=== PATIENT | male | born 1935 | race Caucasian/White ===

== ENCOUNTER 2021-12-13 13:36 | Outpatient (CLI) | payer MEDICARE, SELFPAY ==
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
== END 2021-12-13 13:37 | disposition home or self-care (01) ==
PROVIDERS: PCP Family Medicine Adolescent Medicine; Visit Provider Urology
DX: M85.852 Other specified disorders of bone density and structure, left thigh (principal); M85.851 Other specified disorders of bone density and structure, right thigh
CPT/HCPCS: 77080

== ENCOUNTER 2022-12-01 07:45 | Outpatient (CLI) | payer MEDICARE, SELFPAY ==
--- NOTE | ~2022-12-01 | NM_ITS ---
EXAMINATION: NM bone scan whole body DATE: 12/01/2022 12:22 INDICATION: Prostate cancer TECHNIQUE: 24.2 mCi Tc-99m HDP was administered intravenously. Delayed whole-body scintigrams were o btained. COMPARISON: Bone scan dated 04/10/[address] abdomen and pelvis dated 12/01/2022 FINDINGS: Typical pattern of scattered foci of mild joint centered likely degenerative uptake at the bilateral shoulders, left sternoclavicular joint, right wrist and bilateral feet. No other foci of atypical bon e uptake to suggest metastatic disease. IMPRESSION: 1. No evident osseous metastatic disease. Reviewed, dictated and finalized at location A.
--- NOTE | ~2022-12-01 | CT_ITS ---
CT of the Abdomen and Pelvis: Indication: Prostate cancer Technique: 2.5 mm axial scans were obtained through the abdomen and pelvis following intravenous adm inistration of 100 cc of Omnipaque 350. Dose reduction technique was used on this scan by utilizing a utomated exposure control and iterative reconstruction technique. The dose-length product (DLP) was 1 073.45 mGy-cm. COMPARISON: 04/09/2010 Findings: Scans through the lung bases demonstrate calcified granulomas. The liver, spleen, pancreas, right adrenal gland, and kidneys are within normal limits. Calcified gal lstone present. There is a 2.2 cm left adrenal nodule, significantly increased in size since prior ex am, indeterminate. There are atherosclerotic calcifications of the aorta. No lymphadenopathy. No bowel obstruction or bowel wall thickening. There is a 3.8 x 3.2 x 3.2 cm lobulated soft tissue ma ss in the pelvis, just left of the distal sigmoid colon/rectum (axial image 150). There is an adjacen t 1.9 cm soft tissue nodule just anterior to this lesion (axial image 144). There is a 3.3 x 3.2 x 3. 2 cm lobulated soft tissue mass just left of the left common iliac vessels (axial image 125). Images through the pelvis were performed. Urinary bladder unremarkable. There are bilateral fat-conta ining inguinal hernias. No ascites. Impression: 3 distinct soft tissue masses in the abdomen/pelvis, as detailed above, consistent with neoplastic di sease. Given history, this presumably represents metastatic prostate carcinoma. Correlation with any more recent exams and/or treatment history is advised. Consider tissue sampling as indicated to confi rm histology. 2.2 cm left adrenal nodule, significantly increased since 2009, indeterminate. Consider MR to assess for adenoma versus other lesion. Bilateral fat-containing inguinal hernias. Reviewed, dictated and finalized at location M. Impression: 3 distinct soft tissue masses in the abdomen/pelvis, as detailed above, consist ent with neoplastic disease. Given history, this presumably represents metastat ic prostate carcinoma. Correlation with any more recent exams and/or treatment history is advised. Consider tissue sampling as indicated to confirm histology. 2.2 cm left adrenal nodule, significantly increased since 2009, indeterminate. Consider MR to assess for adenoma versus other lesion. Bilateral fat-containing inguinal hernias.
[2022-12-01 08:15] LABS: Estimated Glomerular Filt Rate 58
== END 2022-12-01 07:46 | disposition home or self-care (01) ==
PROVIDERS: PCP Family Medicine Adolescent Medicine; Visit Provider Urology
DX: C61 Malignant neoplasm of prostate (principal); K40.20 Bilateral inguinal hernia, without obstruction or gangrene, not specified as recurrent; D35.02 Benign neoplasm of left adrenal gland
CPT/HCPCS: 74177; 78306; A9503; Q9967

== ENCOUNTER 2023-12-14 09:19 | Outpatient (CLI) | payer MEDICARE, SELFPAY ==
--- NOTE | ~2023-12-14 | NM_ITS ---
EXAMINATION: NM bone scan whole body DATE: 12/14/2023 14:22 INDICATION: Malignant neoplasm of prostate. TECHNIQUE: 25 mCi Tc-99m HDP was administered intravenously. Delayed whole-body scintigrams were obt ained. 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 IMPRESSION: 1. No evidence of metastatic disease. Reviewed, dictated and finalized at location A.
--- NOTE | ~2023-12-14 | CT_ITS ---
EXAMINATION: CT abdomen pelvis w con DATE: 12/14/2023 10:27 INDICATION: Malignant neoplasm of the prostate TECHNIQUE: Computed tomography (CT) of the abdomen and pelvis was performed with 100 mL Omnipaque-350 intravenous contrast. Automated exposure control and iterative reconstruction technique were employe d. The dose-length product was 1207.55 mGy-cm. COMPARISON: CT dated 12/01/2022 FINDINGS: Small calcified right lower lobe nodules and calcified right hilar lymph nodes along with multiple sc attered small hepatic and splenic calcifications, all consistent with old granulomatous disease. Hear t size is normal. Atherosclerotic coronary artery calcification. No pericardial or pleural effusion. Several scattered small hepatic cysts measuring up to 10 mm. Calcified gallstone at the neck of the o therwise normal gallbladder with no wall thickening or pericholecystic inflammatory changes to sugges t acute cholecystitis. Pancreas and right adrenal gland are normal. Interval decrease in size of a pr eviously 2.2 cm, currently 1.8 cm enhancing left adrenal nodule. There are multiple small low-attenua tion cysts in both kidneys. Indeterminate 1.5 cm soft tissue density lesion at the upper pole of the right kidney. Moderate scattered sigmoid predominant colonic diverticulosis without adjacent inflamma tory stranding to suggest diverticulitis. Small bowel and appendix are normal. Moderate sized bilater al fat-containing inguinal hernias. No free intraperitoneal gas or fluid. Marked interval decrease in size of the 3 previously noted left retroperitoneal masses. For reference the most cephalad along th e cephalad margin of the left common iliac artery is decreased from 3.3 cm to 1.2 cm maximal diameter on the 2 more caudal presacral mass is decreased from 1.9 cm to 1.0 cm and 3.9 to 1.7 cm. No new mas ses or pathologically enlarged abdominal or pelvic lymphadenopathy. Moderate lumbar and lower thoraci c spondylosis. No suspicious lytic or blastic bone lesions. IMPRESSION: 1. 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 2. Interval decrease in size of a previously 2.2 cm, currently 1.8 cm left adrenal nodule also consis tent with response to treatment of metastatic disease. 3. Cholelithiasis. Reviewed, dictated and finalized at location B. IMPRESSION: 1. Significant interval decrease in size of 3 left sided retroperitoneal masses likely representing response to treatment of lymphatic metastatic prostate can cer. 2. Interval decrease in size of a previously 2.2 cm, currently 1.8 cm left adre nal nodule also consistent with response to treatment of metastatic disease. 3. Cholelithiasis.
[2023-12-14 10:20] LABS: Estimated Glomerular Filt Rate 52
== END 2023-12-14 09:20 | disposition home or self-care (01) ==
PROVIDERS: PCP Family Medicine Adolescent Medicine; Visit Provider Urology
DX: C61 Malignant neoplasm of prostate (principal)
CPT/HCPCS: 74177; 78306; A9503; Q9967

== ENCOUNTER 2024-03-28 13:30 | Outpatient (CLI) | payer MEDICARE, SELFPAY ==
--- NOTE | ~2024-03-28 | DEXA_ITS ---
Bone Density Report Name: JAMILA MILNER Age: 88 Sex: Male Ethnicity: White Date of : 1935 Indication: screening for osteoporosis; height loss; history of glucocorticoids; cancer; Referring Provider: KUMAR TAVERAS Study: Bone densitometry was performed. Exam Date: March 28, 2024 Accession number: [id number] Bone Density: Region BMD T-score Z-score Classification AP Spine(L1, L2, L3) 1.065 0.0 1.2 Normal Femoral Neck (Left) 0.760 -1.3 0.5 Osteopenia Total Hip (Left) 0.955 -0.5 0.7 Normal Femoral Neck (Right) 0.701 -1.7 0.0 Osteopenia Total Hip (Right) 0.896 -0.9 0.4 Normal Total Hip Mean 0.925 -0.7 0.6 Normal World Health Organization criteria for BMD impression classify patients as: Normal (T-score at or above -1.0), Osteopenia (T-score between -1.0 and -2.5), or Osteoporosis (T-score at or below -2.5). 10-year Fracture Risk(1): Major Osteoporotic Fracture 9.2% Hip Fracture 4.1% Reported Risk Factors: [place] (), Neck BMD=0.701, BMI=33.1, glucocorticoids (1) FRAX(R) Version 3.08. Fracture probability calculated for an untreated patient. Fracture probability may be lower if the patient has received treatment. Previous Exams: Region Exam Age BMD T-score BMD Change BMD Change Date g/cm2 vs Baseline vs Previous AP Spine (L1-L3) 03/28/2024 88 1.065 0.0 -0.003 (-0.3%) -0.003 (-0.3%) 12/13/2021 86 1.068 0.0 Total Hip(Left) 03/28/2024 88 0.955 -0.5 0.017 (1.8%)# 0.017 (1.8%)# 12/13/2021 86 0.938 -0.6 Total Hip(Right) 03/28/2024 88 0.896 -0.9 -0.013 (-1.4%) -0.013 (-1.4%) 12/13/2021 86 0.908 -0.8 *Denotes significance at 95% confidence level, LSC for AP Spine = 0.022 g/cm2, LSC for Total Hip = 0.027 g/cm2 # Denotes dissimilar scan types or analysis methods Clinical Information Provided by Patient: Has taken Glucocorticoids Has used the following medications: Calcium Has the following medical conditions: Cancer Patient maximum height was 72.0 Does not regularly consume dairy products Drinks caffeinated beverages Impression: The patient has low bone mass, based on the Right Femoral Neck T-score. The patient has an estimated ten-year risk of hip fracture of 4.1% and an estimated ten-year risk of major fracture of 9.2%, based on the WHO FRAX algorithm. The patient has risk factors, including: history of glucocorticoid therapy. No significant bone loss was observed. Discussion: BONE D
== END 2024-03-28 13:31 | disposition home or self-care (01) ==
LOC: ANHIMG 13:33
PROVIDERS: PCP Family Medicine Adolescent Medicine; Visit Provider Urology
DX: M81.0 Age-related osteoporosis without current pathological fracture (principal); M85.852 Other specified disorders of bone density and structure, left thigh; M85.851 Other specified disorders of bone density and structure, right thigh
CPT/HCPCS: 77080

== ENCOUNTER 2024-08-30 11:45 | Emergency (ER) | payer MEDICARE, SELFPAY ==
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
[2024-08-30 11:56] VITALS: BP 128/69; PULSE 74; RESP 16; TEMP 37.7; O2SAT 97
[2024-08-30] MEDS: SILVER SULFADIAZINE 1% CR 50 GM JAR (*BKC) 1 APPLIC TOPICAL (12:13)
[2024-08-30] MEDS: TETANUS,DIPHTHERIA,AC PERTUSSIS ADULT (0.5 ML) BOOSTRIX IM (12:13)
--- OUTSIDE RECORDS SUMMARY | 2024-08-30 13:24 | XMS_ITS | Encounter Summary ---
Author Organization [facility] Address [address] [place] [address] Care Team Providers Care Chemical Machine Tender Name Role Phone Unavailable Primary Care Provider Unavailabl e Encounter Details Date Type Department Care Team (Late st Contact Info) Description 06/02/2024 Lab Requisition [facility] - DermPath Lab [address] [place] [phone] [address]ad [address] MD [facility] DERMATOLOGY [address] [place] [phone] Squamous cell carcinoma of skin of scalp and neck Social History Tobacco Use Types Packs/Day Years Used Date Smoking Tobacco: Never Assessed Sex and Gender Information Value Date Recorded Sex Assigned at Not on file Gender Identity Not on file Sexual Orientation Not on file documented as of this encounter Plan of Treatment Not on file documented as of this encounter Procedures Procedure Name Priority Date/Time Associated Diagnosis Comments DERMATOPATHOLOGY Routine 06/02/2024 3:33 AM CHIEF CLINICAL OFFICER Squamous cell carcinoma of skin of scalp and neck documented in this encounter Results * DERMATOPATHOLOGY (06/02/2024 3:33 AM CHIEF CLINICAL OFFICER) Case Report Dermatopathology Report Case: [id number] Authorizing Provider: Prasad Lane MD Collected: 06/02/2024 03:33 AM Ordering Location: [facility] - Received: 06/03/2024 12:27 PM DermPath Lab Pathologist: Jw Allred MD Specimen: Skin, right frontal scalp 1:25 PM CHIEF CLINICAL OFFICER DERMATOPATHOLOGY LABORATORY Final Diagnosis Specimen A. SKIN, right frontal scalp: SQUAMOUS CELL CARCINOMA, MODERATELY DIFFERENTIATED AND INFILTRATIVE (C44.42) NOT PRESENT AT MARGIN DERMAL SCAR (L90.5) (see microscopic description and comment) 1:25 PM CHIEF CLINICAL OFFICER DERMATOPATHOLOGY LABORATORY Clinical History SCC - check margins 1:25 PM [facility] DERMATOPATHOLOGY LABORATORY Gross Description Specimen A: Received is one formalin filled container labeled with the patient's name and designated right frontal scalp. The specimen consists of a non-oriented ellipse of skin measuring [id number] mm. The epidermal surface is unremarkable. The margin is inked green. The 12 o'clock and 6 o'clock tips are submitted in cassette 1. The remainder of the ellipse is serially sectioned and submitted in cassette 2-15. Jar 0. 1:25 PM [facility] DERMATOPATHOLOGY LABORATORY Microscopic Description Specimen A. SKIN, right frontal scalp: There are nests of squamous epithelial cells which arise from the epidermis and extend into the dermis. The nests have only focal central keratinization and rare horn patti formation. The tumor extends into the subcutaneous tissue. This lesion is not present at the margin of the specimen. There are fibroblasts and collagen bundles oriented parallel to the skin surface with elongated blood vessels, some of which are oriented perpendicular to the skin surface. COMMENT: The tumor extends into the subcutaneous tissue (Gustavo level V). 1:25 PM [facility] DERMATOPATHOLOGY LABORATORY Disclaimer An external and internal positive and negative controls are appropriate for the histochemical, immunohistochemical and immunofluorescence stain(s) in this case (if any), except where stated explicitly. The performance characteristics of the stain(s) cited in this report were developed and its performance characteristic determined by the Dermatopathology Laboratory at [facility], directed by Dr. Maurice Allred. These tests need not be, and therefore are not, approved by the [place] Food and Drug Administration. The tests are used for clinical purposes. Billing Codes Specimen Charges Stain Charges 07226 1 1:25 PM [facility] DERMATOPATHOLOGY [facility]ORATORY Embedded Images 1:25 PM [facility] DERMATOPATHOLOGY [facility]ORATORY Pathology/Cytolo gy TISSUE SPECIMEN FROM SKIN / Unknown 06/02/2024 3:33 AM CHIEF CLINICAL OFFICER 06/03/2024 12:27 PM CHIEF CLINICAL OFFICER Prasad Lane MD LAB - PATHOLOGY/CYTO LOGY ORDERABLES DERMATOPATHOLOGY LABORATORY [facility] - Department of Dermatology [facility] [address] [place] [address], [address] [phone] documented in this encounter Visit Diagnoses Diagnosis 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
--- OUTSIDE RECORDS SUMMARY | 2024-08-30 13:24 | XMS_ITS | Encounter Summary ---
Author Organization [facility] Address [address] [place] [address] Care Team Providers Care Suction Operator Name Role Phone Unavailable Primary Care Provider Unavailabl e Encounter Details Date Type Department Care Team (Late st Contact Info) Description 05/09/2024 Lab Requisition [facility] - DermPath Lab [address] [facility], [place] [phone] Bianka Luther MD [address] [place] [address] [place] [phone] Social History Tobacco Use Types Packs/Day Years Used Date Smoking Tobacco: Never Assessed Sex and Gender Information Value Date Recorded Sex Assigned at Not on file Gender Identity Not on file Sexual Orientation Not on file documented as of this encounter Plan of Treatment Not on file documented as of this encounter Procedures Procedure Name Priority Date/Time Associated Diagnosis Comments DERMATOPATHOLOGY Routine 05/06/2024 3:33 AM GRADUATE RECRUITER documented in this encounter Results * DERMATOPATHOLOGY (05/06/2024 3:33 AM GRADUATE RECRUITER) Case Report Dermatopathology Report Case: [id number] Authorizing Provider: Bianka Luther MD Collected: 05/06/2024 03:33 AM Ordering Location: [facility] - Received: 05/09/2024 12:11 PM DermPath Lab Pathologist: Jw Allred MD Specimen: Skin, right frontal scalp 4 3:31 PM GRADUATE RECRUITER DERMATOPATHOLOGY LABORATORY Final Diagnosis Specimen A. 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 The specimen consists of a shave biopsy measuring five piece 8x5x1;13x8x1;15x8x1 ;7x4x1;7x5x1 mm. Jar 0. 3:31 PM [facility] DERMATOPATHOLOGY LABORATORY Microscopic Description Specimen A. SKIN, right frontal scalp: Sections show skin with irregularly shaped nests of keratinocytes with evidence of cornification. In some nests, there is loss of cohesion between the neoplastic cells, as well as individual dyskeratotic cells that lack intercellular bridges. 3:31 PM [facility] DERMATOPATHOLOGY LABORATORY Disclaimer An external and internal positive and negative controls are appropriate for the histochemical, immunohistochemical and immunofluorescence stain(s) in this case (if any), except where stated explicitly. The performance characteristics of the stain(s) cited in this report were developed and its performance characteristic determined by the Dermatopathology Laboratory at [facility], directed by Dr. Maurice Allred. These tests need not be, and therefore are not, approved by the [place] Food and Drug Administration. The tests are used for clinical purposes. Billing Codes Specimen Charges Stain Charges 56250 1 3:31 PM [facility] DERMATOPATHOLOGY LABORATORY Embedded Images 3:31 PM [facility] DERMATOPATHOLOGY LABORATORY Pathology/Cytolo gy TISSUE SPECIMEN FROM SKIN / Unknown 05/06/2024 3:33 AM GRADUATE RECRUITER 05/09/2024 12:11 PM GRADUATE RECRUITER Bianka Luther MD LAB - PATHOLOGY/CYTO LOGY ORDERABLES DERMATOPATHOLOGY LABORATORY [facility] - Department of Dermatology [address], [address] [phone] documented in this encounter Visit Diagnoses Not on filedocumented in this encounter
--- OUTSIDE RECORDS SUMMARY | 2024-08-30 13:24 | XMS_ITS | Encounter Summary ---
Author Organization [facility] Address [address] [facility] [address] Care Team Providers Care Zigzag Appliquer Name Role Phone Unavailable Primary Care Provider Unavailabl e Encounter Details Date Type Department Care Team (Late st Contact Info) Description 08/18/2023 Lab Requisition [facility] - DermPath Lab [address] [facility], [place] [phone] [address]asad [address] MD [facility] DERMATOLOGY [address] [place] [phone] Neoplasm of uncertain behavior of skin Social History Tobacco Use Types Packs/Day Years Used Date Smoking Tobacco: Never Assessed Sex and Gender Information Value Date Recorded Sex Assigned at Not on file Gender Identity Not on file Sexual Orientation Not on file documented as of this encounter Plan of Treatment Not on file documented as of this encounter Procedures Procedure Name Priority Date/Time Associated Diagnosis Comments DERMATOPATHOLOGY Routine 08/18/2023 12:0 0 AM [facility] Neoplasm of uncertain behavior of skin documented in this encounter Results * DERMATOPATHOLOGY (08/18/2023 12:00 AM [facility]) Case Report Dermatopathology Report Case: [id number] Authorizing Provider: Prasad Lane MD Collected: 08/18/2023 12:00 AM Ordering Location: [facility] - Received: 08/19/2023 02:02 PM DermPath Lab Pathologist: Preethi Clemons MD Specimens: A) - Skin, left medial wrist B) - Skin, left superior brad of antihelix C) - Skin, left lateral elbow 12:37 PM [facility] DERMATOPATHOLOGY LABORATORY Final Diagnosis Specimen A. SKIN, left medial wrist: HYPERPLASTIC (HYPERTROPHIC) ACTINIC KERATOSIS (L57.0) Specimen B. SKIN, left superior brad of antihelix: BASAL CELL CARCINOMA, NODULAR TYPE (C44.219) Specimen C. 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 The specimen consists of a shave biopsy measuring 92m04c8 mm. Jar 0+. Specimen B: Received is one formalin filled container labeled with the patient's name and designated left superior brad of antihelix. The specimen consists of a shave biopsy measuring 8x8x3 mm. Jar 0. Specimen C: Received is one formalin filled container labeled with the patient's name and designated left lateral elbow. The specimen consists of a shave biopsy measuring 10x9x2 mm. Jar 0. 12:37 PM [facility] DERMATOPATHOLOGY LABORATORY Microscopic Description Specimen A. SKIN, left medial wrist: There is hyperkeratosis alternating with parakeratosis. There is epidermal hyperplasia with disorderly maturation of keratinocytes with nuclear pleomorphism confined to the lower half of the epidermis. Specimen B. SKIN, left superior brad of antihelix: Within the dermis there are aggregates of basaloid cells with a high nuclear to cytoplasmic ratio and peripheral palisading. Specimen C. SKIN, left lateral elbow: The epidermis shows parakeratosis, full thickness disorderly maturation of keratinocytes, mitoses at different levels, and dyskeratotic cells. 12:37 PM [facility] DERMATOPATHOLOGY LABORATORY Disclaimer An external and internal positive and negative controls are appropriate for the histochemical, immunohistochemical and immunofluorescence stain(s) in this case (if any), except where stated explicitly. The performance characteristics of the stain(s) cited in this report were developed and its performance characteristic determined by the Dermatopathology Laboratory at [facility], directed by Dr. Maurice Allred. These tests need not be, and therefore are not, approved by the [place] Food and Drug Administration. The tests are used for clinical purposes. Billing Codes Specimen Charges Stain Charges 03068 59577 80014 1 1 1 4 12:37 PM [facility] DERMATOPATHOLOGY LABORATORY Embedded Images 12:37 PM [facility] DERMATOPATHOLOGY LABORATORY Pathology/Cytology TISSUE SPECIMEN FROM SKIN / Unknown 08/18/2023 08/19/2023 2:02 PM [facility] Miscellaneous samples (specimen) TISSUE SPECIMEN FROM SKIN / Unknown 08/18/2023 08/19/2023 2:05 PM [facility] Miscellaneous samples (specimen) TISSUE SPECIMEN FROM SKIN / Unknown 08/18/2023 08/19/2023 2:[address] MD LAB - PATHOLOGY/CYTO LOGY ORDERABLES DERMATOPATHOLOGY LABORATORY [facility] - Department of Dermatology [facility] [address] [place] [address], [address] [phone] documented in this encounter Visit Diagnoses Diagnosis Neoplasm of uncertain behavior of skin documented in this encounter
--- OUTSIDE RECORDS SUMMARY | 2024-08-30 13:24 | XMS_ITS ---
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 Past Plans No past plan information found. Radiation Treatments * Plan Last Treated On Elapsed Days Fractions Treated Prescribed Fraction Dose Prescribed Total Dose Pelv_SBRT_I nf 03/19/2023 5 of 5 Pelv_SBRT_S up 03/19/2023 5 of 5 Reference Point Last Treated On Elapsed Days Session Dose Total Dose Pelv_SBRT_Inf 03/19/2023 36 Pelv_SBRT_Sup 03/19/2023 40
--- OUTSIDE RECORDS SUMMARY | 2024-08-30 13:24 | XMS_ITS | Clinical Summary ---
Author Organization [facility] Address [address] [place] [address] Phone Care Team Providers Care Cash Management Coordinator Name Role Phone Lenin Armijo MD Primary Care Provider + Josh Yoo MD Unavailable [phone] Allergies No known active allergies Medications lisinopril (PRINIVIL, ZESTRIL) 20 MG Tablet Take 20 mg by mouth daily. 2 tablets Active potassium chloride CR (KLORCON) 10 MEQ Tablet Controlled Release Take 10 Tablets by mouth 2 times daily. 11/04/2022 Active hydroCHLOROthia zide 25 MG Tablet 11/05/2022 Active Alpha-Lipoic Acid 100 MG Capsule Take by mouth in the morning and at bedtime. Active B Complex Vitamins (VITAMIN-B COMPLEX PO) Take by mouth. Active Calcium Carb-Cholecalci ferol (CALCIUM 500 + D PO) Take by mouth. Active abiraterone (ZYTIGA) 250 MG Tablet 12/26/2022 Active predniSONE (DELTASONE) 5 MG Tablet 03/24/2024 Active Active Problems Problem Noted Date Diagnosed Date Prostate cancer 01/15/2023 Encounters Date Type Department Care Team Description 08/04/2024 10:[address] INSPECTOR Office Visit [facility] [address] [place] [address] Sharri Weston, ENGINEERING PSYCHOLOGIST, MANAGER [employer] Prostate cancer (HCC) (Primary Dx) 08/04/2024 Travel 07/28/2024 11:[address] INSPECTOR Lab [facility] [address] [facility] [address] [phone] Prostate cancer (HCC) (Primary Dx) 07/28/2024 Travel from Last 3 Months Social History Tobacco Use Types Packs/Day Years Used Date Smoking Tobacco: Never Smokeless Tobacco: Never Tobacco Cessation:Counseling Given: Not Answered Sexually Active Control Partners Comments Never Sex and Gender Information Value Date Recorded Sex Assigned at Not on file Legal Sex Male 3:41 PM CDT Gender Identity Not on file Sexual Orientation Not on file Last Filed Vital Signs Vital Sign Reading Time Taken Comments Blood Pressure 142/90 08/04/2024 10:[address] INSPECTOR Pulse 72 08/04/2024 10:[address] INSPECTOR Temperature 36.2 C (97.2 F) 08/04/2024 10:[address] INSPECTOR Respiratory Rate 18 08/04/2024 10:[address] INSPECTOR Oxygen Saturation 98% 08/04/2024 10: [address] INSPECTOR Inhaled Oxygen Concentration - - Weight 102.3 kg (225 lb 9.6 oz) 025 10:[address] INSPECTOR Height 177.8 cm (5' 10 ) 08/04/2024 10: [address] INSPECTOR Body Mass Index 32.37 08/04/2024 10:[address] INSPECTOR Plan of Treatment Upcoming Encounters Date Type Department Care Team (Late st Contact Info) Description 01/26/2025 10:00 AM CDT Lab [facility] [address] [facility] [address] [phone] Nurse, [facility] 02/02/2025 10:45 AM CDT Office Visit [facility] [address] [facility] [address] [phone] Josh Yoo MD [address] [place] [phone] Health Maintenance Due Date Last Done Comments Hepatitis C Virus (HCV) Screening 1935 TdaP Immunization 1935 Pneumococcal Immunization (50+ years) (1 of 2 - PCV) 1956 Zoster Immunization (1 of 2) 1956 Respiratory Syncytial Virus (RSV) Immunization (Adult) (1 - 1-dose 75+ series) 2012 SARS-COV-2 Immunization ( season) 2024 08/04/2022, 03/14/2021, 08/28/2020, Additional history exists Influenza Immunization Completed , 03/05/2023, 03/17/2022, Additional history exists Hepatitis B Immunization Aged Out No longer eligible based on patient's age to complete this topic Meningococcal Immunization (ACWY) Aged Out No longer eligible based on patient's age to complete this topic Rotavirus Immunization Aged Out No lo nger eligible based on patient's age to complete this topic Procedures Procedure Name Priority Date/Time Associated Diagnosis Comments COMPLETE BLOOD COUNT (CBC) WITH DIFF Routine 07/28/2024 3:[address] INSPECTOR Prostate cancer (HCC) CMP (COMPREHENSIVE METABOLIC PANEL) Routine 07/28/2024 3:[address] INSPECTOR Prostate cancer (HCC) PSA DIAGNOSTIC,TOTAL Routine 07/28/2024 3:[address] INSPECTOR Prostate cancer (HCC) from Last 3 Months Results * PSA DIAGNOSTIC,TOTAL (07/28/2024 3:[address] INSPECTOR) PSA 0.05 0.00 - 4.00 ng/mL [facility] AT [facility] Comment: Radha Paramagnetic Particle Chemiluminescent Immunoassay Method. Standardized against the WHO standard. Blood 07/28/2024 3:[address] INSPECTOR Narrative [facility] - 07/29/2024 2:[address] INSPECTOR Release to patient->Immediate us Josh Yoo MD CHEMISTRY ORDERABLES Final Result [facility] COUNT[facility] INCLUDE [facility] AT [facility] [place] [address], [place] [phone] * (ABNORMAL) CMP (COMPREHENSIVE METABOLIC PANEL) (07/28/2024 3:[address] INSPECTOR) Glucose 106(H) 70 - 105 mg/dL [facility] Blood Urea Nitrogen 23 7 - 25 mg/dL [facility] Creatinine 1.0 0.7 - 1.3 mg/dL [facility] Sodium 144 136 - 145 mEq/L [facility] Potassium 3.8 3.5 - 5.1 mEq/L [facility] Chloride 102 98 - 107 mEq/L [facility] Bicarbonate 32(H) 21 - 31 mEq/L [facility] Total Bilirubin 0.7 0.3 - 1.0 mg/dL [facility] Alk. Phosphatase 74 34 - 104 U/L [facility] Aspartate Aminotransferase 16 13 - 39 U/L [facility] Alanine Aminotransferase 10 7 - 52 U/L [facility] Total Protein 6.0(L) 6.4 - 8.9 g/dL [facility] Albumin 4.1 3.5 - 5.7 g/dL [facility] Calcium 9.9 8.6 - 10.3 mg/dL [facility] Anion Gap 13.8 7.0 - 15.0 mEq/L [facility] Globulin 1.9(L) 2.0 - 3.5 g/dL [facility] EGFR 73 >60 ml/min/1. 73m2 [facility] Comment: This eGFR is calculated using 2020 CKD-EPI Creatinine equation without race modifier based on the NKF-ASN task force recommendations Blood 07/28/2024 3:[address] INSPECTOR Narrative [facility] - 07/29/2024 9:[address] INSPECTOR Release to patient->Immediate IS THE PATIENT REQUIRED TO BE FASTING FOR 8 HOURS?->No Josh Yoo MD CHEMISTRY ORDERABLES Final Result [facility]CLUDE [facility] AT [facility] [address] [place] [address], * (ABNORMAL) COMPLETE BLOOD COUNT (CBC) WITH DIFF (07/28/2024 3:[address] INSPECTOR) WBC 7.8 4.0 - 10.0 10*3/uL [facility] HGB 12.6(L) 13.7 - 17.5 g/dL [facility]CLUDE 234 [facility] AT [facility] HCT 38.6(L) 40.1 - 51.0 % [facility] PLT 170 163 - 369 10*3/uL [facility] MPV 10.2 9.4 - 12.4 fL [facility] RBC 4.07(L) 4.63 - 6.08 10*6/uL [facility] MCV 95 79 - 95 fL [facility]CLUDE 234 [facility] AT [facility] MCH 31.0 25.6 - 32.2 pg [facility] INCLUDE 234 BEDS AT [facility] MCHC 32.6 32.2 - 36.5 g/dL [facility] RDW 14.1 11.6 - 14.4 % [facility] Absolute Neutrophil Count 6,388 cells/uL [facility] COUNTS INCLUDE 234 BEDS AT [facility] Absolute Seg Count 6,388 1,440 - 6,600 cells/uL [facility] Absolute Lymph Count 1,013 760 - 4,000 cells/uL [facility] Absolute Evans Count 156(L) 160 - 1,200 cells/uL [facility] Absolute Eos Count 78 0 - 300 cells/uL [facility] Absolute Baso Count 156(H) 0 - 100 cells/uL [facility] Segmented Neutrophils 82(H) 36 - 66 % [facility] Lymphocytes 13(L) 19 - 40 % [facility] COUNTS INCLUDE [facility]S AT [facility] Monocytes 2(L) 4 - 12 % [facility] COUNTS INCLUDE 234 [facility]S AT [facility] Eosinophils 1 0 - 3 % [facility] COUNTS INCLUDE 234 [facility] AT [facility] Basophils 2(H) 0 - 1 % [facility] COUNTS INCLUDE 234 [facility]S AT [facility] WBC Estimate Normal [facility]CLUDE 234 [facility] AT [facility] Platelet Estimate Normal [facility]S [facility]CLUDE 234 [facility] AT [facility] RBC Morphology Normal [facility] Blood 07/28/2024 3:[address] INSPECTOR Narrative [facility] - 07/29/2024 8:[address] INSPECTOR Release to patient->Immediate Josh Yoo MD HEMATOLOGY ORDERABLES Final Result [facility] [place] [address], [place] [phone] from Last 3 Months Insurance MEDICARE C [employer] Care Teams Cash Management Coordinator Relationship Specialty Start Date End Date Lenin Armijo MD [address] [place] [address] PCP - General Family Medicine 12/18/22 Josh Yoo MD [address] [place] [phone] Consulting Physician Oncology 11/24/23
--- OUTSIDE RECORDS SUMMARY | 2024-08-30 13:24 | XMS_ITS | Clinical Summary ---
Author Organization [facility] Address [address] [facility] [place] [address] Care Team Providers Care Vp Strategic Planning Name Role Phone Unavailable Primary Care Provider Unavailabl e Source Comments [facility],non-owned Affiliates and Associated Physician Practices is amultiple site organization consisting of ambulatory clinics and hospital sitesin [place], [place], [place] and [place]. This disclosure is being madepursuant to the Care Everywhere program and may not contain all information available regarding this patient. Last updated 18.[facility] Encounters Date Type Department Care Team Description 06/02/2024 Lab Requisition [facility] - DermPath Lab [address] [facility], [facility] [place] [place] [address] MD Squamous cell carcinoma of skin of scalp and neck from Last 3 Months Social History Tobacco Use Types Packs/Day Years Used Date Smoking Tobacco: Never Assessed Sex and Gender Information Value Date Recorded Sex Assigned at Not on file Gender Identity Not on file Sexual Orientation Not on file Plan of Treatment Health Maintenance Due Date Last Done Comments DTAP/TDAP/TD VACCINES (1 - Tdap) 1956 PNEUMOCOCCAL VACCINE 50+ (1 of 1 - PCV) 1987 ZOSTER VACCINE (1 of 2) 1987 Respiratory Syncytial Virus (RSV) Vaccine Pt: or over 60 yrs (1 - 1-dose 75+ series) 2012 COVID-19 VACCINE ( - 2023-2 5 season) 2024 INFLUENZA VACCINE (#1) 2024 DEPRESSION SCREENING 2024 MEDICARE AWV CALENDAR YEAR 2024 HEPATITIS B VACCINE Aged Out No longe r eligible based on patient's age to complete this topic HIB VACCINE Aged Out No longer eligi ble based on patient's age to complete this topic HPV VACCINE Aged Out No longer eligi ble based on patient's age to complete this topic MENINGOCOCCAL (Group B) VACC INE SHARED DECISION-MAKING Aged Out No longer eligibl e based on patient's age to complete this topic MENINGOCOCCAL GROUPS A/C/Y/W VACCINE Aged Out No longer eligible b ased on patient's age to complete this topic Procedures Procedure Name Priority Date/Time Associated Diagnosis Comments DERMATOPATHOLOGY Routine 06/02/2024 3:33 AM OLIVE BRINE TESTER Squamous cell carcinoma of skin of scalp and neck from Last 3 Months Results * DERMATOPATHOLOGY (06/02/2024 3:33 AM OLIVE BRINE TESTER) Case Report Dermatopathology Report Case: [id number] Authorizing Provider: Prasad Lane MD Collected: 06/02/2024 03:33 AM Ordering Location: [facility] - Received: 06/03/2024 12:27 PM DermPath Lab Pathologist: Jw Allred MD Specimen: Skin, right frontal scalp 1:25 PM OLIVE BRINE TESTER DERMATOPATHOLOGY LABORATORY Final Diagnosis Specimen A. SKIN, right frontal scalp: SQUAMOUS CELL CARCINOMA, MODERATELY DIFFERENTIATED AND INFILTRATIVE (C44.42) NOT PRESENT AT MARGIN DERMAL SCAR (L90.5) (see microscopic description and comment) 1:25 PM OLIVE BRINE TESTER DERMATOPATHOLOGY LABORATORY Clinical History SCC - check margins 1:25 PM OLIVE BRINE TESTER DERMATOPATHOLOGY LABORATORY Gross Description Specimen A: Received is one formalin filled container labeled with the patient's name and designated right frontal scalp. The specimen consists of a non-oriented ellipse of skin measuring 22q33u68 mm. The epidermal surface is unremarkable. The margin is inked green. The 12 o'clock and 6 o'clock tips are submitted in cassette 1. The remainder of the ellipse is serially sectioned and submitted in cassette 2-15. Jar 0. 1:25 PM OLIVE BRINE TESTER DERMATOPATHOLOGY LABORATORY Microscopic Description Specimen A. SKIN, [...] into the subcutaneous tissue (Gustavo level V). 4 1:25 PM [facility] DERMATOPATHOLOGY LABORATORY Disclaimer An external and internal positive and negative controls are appropriate for the histochemical, immunohistochemical and immunofluorescence stain(s) in this case (if any), except where stated explicitly. The performance characteristics of the stain(s) cited in this report were developed and its performance characteristic determined by the Dermatopathology Laboratory at [facility], directed by Dr. Maurice Allred. These tests need not be, and therefore are not, approved by the [place] Food and Drug Administration. The tests are used for clinical purposes. Billing Codes Specimen Charges Stain Charges 46053 1 4 1:25 PM OLIVE BRINE TESTER DERMATOPATHOLOGY LABORATORY Embedded Images 4 1:25 PM OLIVE BRINE TESTER DERMATOPATHOLOGY LABORATORY Pathology/Cytolo gy TISSUE SPECIMEN FROM SKIN / Unknown 06/02/2024 3:33 AM OLIVE BRINE TESTER 06/03/2024 12:27 PM OLIVE BRINE TESTER Prasad Lane MD LAB - PATHOLOGY/CYTO LOGY ORDERABLES DERMATOPATHOLOGY LABORATORY [facility] - Department of Dermatology [facility] Medicine [address] [place] [address], [address] [phone] from Last 3 Months
--- OUTSIDE RECORDS SUMMARY | 2024-08-30 13:24 | XMS_ITS | Clinical Summary ---
Author Organization [facility] Address [address] [place] [address] Care Team Providers Care Kiln Repairer Name Role Phone Luis Ramos MD Unavailable Lenin Armijo MD Primary Care Provider [phone] Josh Yoo MD Unavailable [phone] Allergies No known active allergies Medications THIOCTIC ACID 100 MG Cap Take by mouth 2 (two) times daily. Active B COMPLEX VITAMINS OR Take by mouth. Active Calcium Carb-Cholecalci ferol 500-15 MG-MCG Tab Take by mouth. Active hydroCHLOROthia zide (HYDRODIURIL) 25 MG tablet 11/05/2022 Active lisinopril (PRINIVIL) 20 MG tablet Take 1 tablet (20 mg total) by mouth daily. Active potassium chloride CR (K-TAB) 10 MEQ Tab CR tablet Take 10 tablets (100 mEq total) by mouth 2 (two) times daily. 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 ([facility]) 02/19/2024 Social History Tobacco Use Types Packs/Day Years Used Date Smoking Tobacco: Never Smokeless Tobacco: Never Tobacco Cessation:Counseling Given: Not Answered Sex and Gender Information Value Date Recorded Sex Assigned at Not on file Legal Sex Male 11:47 AM CDT Gender Identity Not on file Sexual Orientation Not on file Last Filed Vital Signs Vital Sign Reading Time Taken Comments Blood Pressure 133/82 11/10/2023 10:39 AM CDT Pulse 84 11/10/2023 10:39 AM CDT Temperature - - Respiratory Rate - - Oxygen Saturation 97% 11/10/2023 10: 39 AM CDT Inhaled Oxygen Concentration - - Weight 104.9 kg (231 lb 3.2 oz) 024 10:39 AM CDT Height 180.3 cm (5' 11 ) 07/13/2023 10: 09 AM TINT LAYER Body Mass Index 32.25 07/13/2023 10:09 AM TINT LAYER Plan of Treatment Health Maintenance Due Date Last Done Comments DTaP, Tdap and Td Vaccines (1 - Tdap) 1956 Zoster Vaccines (1 of 2) 1987 Annual Medicare Wellness Visit 2002 Pneumococcal Vaccine: 65+ Years (1 of 1 - PCV) 2002 RSV Immunization or 60+ Years (1 - 1-dose 75+ series) 2012 COVID-19 Vaccine ( season) 2024 08/04/2022, 03/14/2021, 08/28/2020, Additional history exists Influenza Adult (#1) 2024 Meningococcal B Vaccine Aged Out No l onger eligible based on patient's age to complete this topic Meningococcal Vaccine Aged Out No marry felicity eligible based on patient's age to complete this topic RSV Immunizations Under 20 Months Aged Out No longer eligible based on patient's age to complete this topic Insurance AETNA Care Teams Kiln Repairer Relationship Specialty Start Date End Date Lenin Armijo MD [address] [address] PCP - General FAMILY PRACTICE 11/19/23 Luis Ramos MD [address] [address] Consulting Physician RADIATION ONCOLOGY 01/05/23 [place] [address] [place] [address] Medical Oncologist HEMATOLOGY/ONCOLOGY 11/19/23
== END 2024-08-30 12:38 | disposition home or self-care (01) ==
PROVIDERS: Emergency Provider Nurse Practitioner Family; PCP Family Medicine Adolescent Medicine
DX: L08.9 Local infection of the skin and subcutaneous tissue, unspecified (principal); T25.232A Burn of second degree of left toe(s) (nail), initial encounter; T25.222A Burn of second degree of left foot, initial encounter; X08.8XXA Exposure to other specified smoke, fire and flames, initial encounter; Z23 Encounter for immunization; I10 Essential (primary) hypertension
CPT/HCPCS: 16020; 87070; 87075; 87205; 90471; 90715; 99213; A9270; G0463

== ENCOUNTER 2024-11-17 07:06 | Outpatient (RCR) | payer MEDICARE, SELFPAY ==
[2024-09-22 12:00] VITALS: BMI 31.4
== END 2024-12-12 16:23 | disposition home or self-care (01) ==
LOC: ANHWOC 07:06
PROVIDERS: PCP Family Medicine Adolescent Medicine; Visit Provider Family Medicine
DX: T25.222A Burn of second degree of left foot, initial encounter (principal); Z48.00 Encounter for change or removal of nonsurgical wound dressing
CPT/HCPCS: 99212; 99213; 99215; A9270; G0463

== ENCOUNTER 2024-11-22 08:19 | Outpatient (CLI) | payer MEDICARE, SELFPAY ==
--- NOTE | ~2024-11-22 | NM_ITS ---
EXAMINATION: NM bone scan whole body DATE: 11/22/2024 12:54 INDICATION: Neoplasm of the prostate TECHNIQUE: 25 mCi Tc-99m HDP was administered intravenously. Delayed whole-body scintigrams were obt ained. COMPARISON: Bone scan dated 12/14/2023 FINDINGS: Again seen is likely degenerative joint centered uptake at the bilateral acromioclavicular joints and left sternoclavicular joint. Additional likely degenerative joint centered focus of mild uptake at o ne of the interphalangeal joints at the left hand. Mild likely dental disease associated uptake at th e right mandible and maxilla. No other bone lesions suspicious for metastatic disease. IMPRESSION: 1. No evident metastatic disease. Reviewed, dictated and finalized at location A.
--- OUTSIDE RECORDS SUMMARY | 2024-11-22 08:31 | XMS_ITS | Encounter Summary ---
Author Organization [facility] Address [address] [facility] [place] [address] Care Team Providers Care Hair Salon Manager Name Role Phone Unavailable Primary Care Provider Unavailabl e Encounter Details Date Type Department Care Team (Late st Contact Info) Description 08/18/2023 Lab Requisition [facility] - DermPath Lab [address] [facility], [place] [phone] Prasad [address] MD [facility] DERMATOLOGY [address] [place] [phone] Neoplasm of uncertain behavior of skin Social History Tobacco Use Types Packs/Day Years Used Date Smoking Tobacco: Never Assessed Sex and Gender Information Value Date Recorded Sex Assigned at Not on file Legal Sex Male 1:11 PM VICE PRESIDENT PAYMENT Gender Identity Not on file Sexual Orientation Not on file documented as of this encounter Plan of Treatment Not on file documented as of this encounter Procedures Procedure Name Priority Date/Time Associated Diagnosis Comments DERMATOPATHOLOGY Routine 08/18/2023 12:0 0 AM VICE PRESIDENT PAYMENT Neoplasm of uncertain behavior of skin documented in this encounter Results * DERMATOPATHOLOGY (08/18/2023 12:00 AM VICE PRESIDENT PAYMENT) Case Report Dermatopathology Report Case: [id number] Authorizing Provider: Prasad Lane MD Collected: 08/18/2023 12:00 AM Ordering Location: [facility] - Received: 08/19/2023 02:02 PM DermPath Lab Pathologist: Preethi Clemons MD Specimens: A) - Skin, left medial wrist B) - Skin, left superior brad of antihelix C) - Skin, left lateral elbow 12:37 PM VICE PRESIDENT PAYMENT DERMATOPATHOLOGY LABORATORY Final Diagnosis Specimen A. SKIN, left medial wrist: HYPERPLASTIC (HYPERTROPHIC) ACTINIC KERATOSIS (L57.0) Specimen B. SKIN, left superior brad of antihelix: BASAL CELL CARCINOMA, NODULAR TYPE (C44.219) Specimen C. 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 The specimen consists of a shave biopsy measuring [id number] mm. Jar 0+. Specimen B: Received is [...] measuring 10x9x2 mm. Jar 0. 12:37 PM [facility] DERMATOPATHOLOGY LABORATORY Microscopic Description Specimen [...] different levels, and dyskeratotic cells. 12:37 PM [facility] DERMATOPATHOLOGY LABORATORY Disclaimer An external and internal positive and negative controls are appropriate for the histochemical, immunohistochemical and immunofluorescence stain(s) in this case (if any), except where stated explicitly. The performance characteristics of the stain(s) cited in this report were developed and its performance characteristic determined by the Dermatopathology Laboratory at [facility], directed by Dr. Maurice Allred. These tests need not be, and therefore are not, approved by the [place] Food and Drug Administration. The tests are used for clinical purposes. Billing Codes Specimen Charges Stain Charges 01619 84404 62889 1 1 1 4 12:37 PM VICE PRESIDENT PAYMENT DERMATOPATHOLOGY LABORATORY Embedded Images 12:37 PM VICE PRESIDENT PAYMENT DERMATOPATHOLOGY LABORATORY Pathology/Cytology TISSUE SPECIMEN FROM SKIN / Unknown 08/18/2023 08/19/2023 2:02 PM VICE PRESIDENT PAYMENT Miscellaneous samples (specimen) TISSUE SPECIMEN FROM SKIN / Unknown 08/18/2023 08/19/2023 2:05 PM VICE PRESIDENT PAYMENT Miscellaneous samples (specimen) TISSUE SPECIMEN FROM SKIN / Unknown 08/18/2023 08/19/2023 2:05 PM VICE PRESIDENT PAYMENT Prasad Lane MD LAB - PATHOLOGY/CYTOLOGY ORDE MARCIAL Final Result DERMATOPATHOLOGY LABORATORY [facility] - Department of Dermatology [facility] Medicine [address] [place] [address], [address] [phone] documented in this encounter Visit Diagnoses Diagnosis Neoplasm of uncertain behavior of skin documented in this encounter
--- OUTSIDE RECORDS SUMMARY | 2024-11-22 08:31 | XMS_ITS | Clinical Summary ---
Author Organization [facility] [employer] Address [address] [facility] [place] [address] Care Team Providers Care Pavilion Cutter Name Role Phone Unavailable Primary Care Provider Unavailabl e Source Comments [facility] [employer]non-owned Affiliates and Associated Physician Practices is amultiple site organization consisting of ambulatory clinics and hospital sitesin [place], [place], [place] and [place]. This disclosure is being madepursuant to the Care Everywhere program and may not contain all information available regarding this patient. Last updated 18.[facility] [employer] Social History Tobacco Use Types Packs/Day Years Used Date Smoking Tobacco: Never Assessed Sex and Gender Information Value Date Recorded Sex Assigned at Not on file Legal Sex Male 1:11 PM FIRE CONTROL SYSTEM INSTALLER Gender Identity Not on file Sexual Orientation Not on file Plan of Treatment Health Maintenance Due Date Last Done Comments DTAP/TDAP/TD VACCINES (1 - Tdap) 1956 PNEUMOCOCCAL VACCINE 50+ (1 of 1 - PCV) 1987 ZOSTER VACCINE (1 of 2) 1987 Respiratory Syncytial Virus (RSV) Vaccine Pt: or over 60 yrs (1 - 1-dose 75+ series) 2012 COVID-19 VACCINE (2023-2 5 season) 2024 DEPRESSION SCREENING 2024 MEDICARE AWV CALENDAR YEAR 2024 INFLUENZA VACCINE (Season Ended) 2025 HEPATITIS B VACCINE Aged Out No longe [...] patient's age to complete this topic Insurance [place] [id number] AETNA MEDICARE ADV
--- OUTSIDE RECORDS SUMMARY | 2024-11-22 08:31 | XMS_ITS | Encounter Summary ---
Author Organization [facility] Address [address] [facility] [place] [address] Care Team Providers Care Vocational Ed Instructor Name Role Phone Unavailable Primary Care Provider Unavailabl e Encounter Details Date Type Department Care Team (Late st Contact Info) Description 06/02/2024 Lab Requisition [facility] - DermPath Lab [address] [facility] [place] [phone] Prasad [address] MD [facility] DERMATOLOGY [address] [place] [phone] Squamous cell carcinoma of skin of scalp and neck Social History Tobacco Use Types Packs/Day Years Used Date Smoking Tobacco: Never Assessed Sex and Gender Information Value Date Recorded Sex Assigned at Not on file Legal Sex Male 1:11 PM HEEL FINISHER Gender Identity Not on file Sexual Orientation Not on file documented as of this encounter Plan of Treatment Not on file documented as of this encounter Procedures Procedure Name Priority Date/Time Associated Diagnosis Comments DERMATOPATHOLOGY Routine 06/02/2024 3:33 AM HEEL FINISHER Squamous cell carcinoma of skin of scalp and neck documented in this encounter Results * DERMATOPATHOLOGY (06/02/2024 3:33 AM HEEL FINISHER) Case Report Dermatopathology Report Case: [id number] Authorizing Provider: Prasad Lane MD Collected: 06/02/2024 03:33 AM Ordering Location: [facility] - Received: 06/03/2024 12:27 PM DermPath Lab Pathologist: Jw Allred MD Specimen: Skin, right frontal scalp 1:25 PM HEEL FINISHER DERMATOPATHOLOGY LABORATORY Final Diagnosis Specimen A. SKIN, right frontal scalp: SQUAMOUS CELL CARCINOMA, MODERATELY DIFFERENTIATED AND INFILTRATIVE (C44.42) NOT PRESENT AT MARGIN DERMAL SCAR (L90.5) (see microscopic description and comment) 1:25 PM [facility] DERMATOPATHOLOGY LABORATORY at 1325 HEEL FINISHER Clinical History SCC - check margins 1:25 PM [facility] DERMATOPATHOLOGY LABORATORY Gross Description Specimen A: Received is one formalin filled container labeled with the patient's name and designated right frontal scalp. The specimen consists of a non-oriented ellipse of skin measuring 11v80c14 mm. The epidermal surface is unremarkable. The margin is inked green. The 12 o'clock and 6 o'clock tips are submitted in cassette 1. The remainder of the ellipse is serially sectioned and submitted in cassette 2-15. Jar 0. 1:25 PM [facility] DERMATOPATHOLOGY LABORATORY Microscopic Description Specimen A. [...] subcutaneous tissue (Gustavo level V). 1:25 PM [facility] DERMATOPATHOLOGY LABORATORY Disclaimer An external and [...] purposes. Billing Codes Specimen Charges Stain Charges 57700 1 4 1:25 PM [facility] DERMATOPATHOLOGY LABORATORY Embedded Images 1:25 PM [facility] DERMATOPATHOLOGY LABORATORY Pathology/Cytolo gy TISSUE SPECIMEN FROM SKIN / Unknown 06/02/2024 3:33 AM HEEL FINISHER 06/03/2024 12:27 PM [facility] Prasad Lane MD LAB - PATHOLOGY/CYTOLOGY NAYLA CEJA Final Result DERMATOPATHOLOGY LABORATORY [facility] - Department of Dermatology [address], [address] [phone] documented in this encounter Visit Diagnoses Diagnosis 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
--- OUTSIDE RECORDS SUMMARY | 2024-11-22 08:31 | XMS_ITS | Encounter Summary ---
Author Organization [facility] Address [address] [place] [address] Care Team Providers Care Film Color Tester Name Role Phone Unavailable Primary Care Provider Unavailabl e Encounter Details Date Type Department Care Team (Late st Contact Info) Description 05/09/2024 Lab Requisition [facility] - DermPath Lab [address] [facility], [place] [phone] Bianka Luther MD [address] [place] [address] [place] [phone] Social History Tobacco Use Types Packs/Day Years Used Date Smoking Tobacco: Never Assessed Sex and Gender Information Value Date Recorded Sex Assigned at Not on file Legal Sex Male 1:11 PM BIG DATA HADOOP DEVELOPER Gender Identity Not on file Sexual Orientation Not on file documented as of this encounter Plan of Treatment Not on file documented as of this encounter Procedures Procedure Name Priority Date/Time Associated Diagnosis Comments DERMATOPATHOLOGY Routine 05/06/2024 3:33 AM BIG DATA HADOOP DEVELOPER documented in this encounter Results * DERMATOPATHOLOGY (05/06/2024 3:33 AM BIG DATA HADOOP DEVELOPER) Case Report Dermatopathology Report Case: [id number] Authorizing Provider: Bianka Luther MD Collected: 05/06/2024 03:33 AM Ordering Location: [facility] Physician [facility] - Received: 05/09/2024 12:11 PM DermPath Lab Pathologist: Jw Allred MD Specimen: Skin, right frontal scalp 4 3:31 PM BIG DATA HADOOP DEVELOPER DERMATOPATHOLOGY LABORATORY Final Diagnosis Specimen A. SKIN, right frontal scalp: SQUAMOUS CELL CARCINOMA, ACANTHOLYTIC TYPE (C44.42) 4 3:31 PM BIG DATA HADOOP DEVELOPER DERMATOPATHOLOGY LABORATORY at 1531 BIG DATA HADOOP DEVELOPER Clinical History SCC 4 3:31 PM [facility] DERMATOPATHOLOGY LABORATORY Gross Description Specimen A: Received is one formalin filled container labeled with the patient's name and designated right frontal scalp. The specimen consists of a shave biopsy measuring five piece 8x5x1;13x8x1;15x8x1 ;7x4x1;7x5x1 mm. Jar 0. 3:31 PM [facility] DERMATOPATHOLOGY LABORATORY Microscopic Description Specimen A. SKIN, right frontal scalp: Sections show skin with irregularly shaped nests of keratinocytes with evidence of cornification. In some nests, there is loss of cohesion between the neoplastic cells, as well as individual dyskeratotic cells that lack intercellular bridges. 3:31 PM [facility] DERMATOPATHOLOGY LABORATORY Disclaimer An external and internal positive and negative controls are appropriate for the histochemical, immunohistochemical and immunofluorescence stain(s) in this case (if any), except where stated explicitly. The performance characteristics of the stain(s) cited in this report were developed and its performance characteristic determined by the Dermatopathology Laboratory at [facility], directed by Dr. Maurice Allred. These tests need not be, and therefore are not, approved by the [place] Food and Drug Administration. The tests are used for clinical purposes. Billing Codes Specimen Charges Stain Charges 95689 1 4 3:31 PM [facility] DERMATOPATHOLOGY LABORATORY Embedded Images 3:31 PM [facility] DERMATOPATHOLOGY LABORATORY Pathology/Cytolo gy TISSUE SPECIMEN FROM SKIN / Unknown 05/06/2024 3:33 AM BIG DATA HADOOP DEVELOPER 05/09/2024 12:11 PM [facility] Bianka Luther MD LAB - PATHOLOGY/CYTOLOGY ORDERAB LES Final Result DERMATOPATHOLOGY LABORATORY [facility] - Department of Dermatology [address] [place] [address], [facility] [phone] documented in this encounter Visit Diagnoses Not on filedocumented in this encounter
--- OUTSIDE RECORDS SUMMARY | 2024-11-22 08:31 | XMS_ITS | Clinical Summary ---
Author Organization [facility] Address [address], [facility] [address] [place] [address] Phone Care Team Providers Care Knot Tying Operator Name Role Phone Lenin Armijo MD Primary Care Provider + Josh Yoo MD Unavailable [phone] Allergies No known active allergies Medications lisinopril [...] Noted Date Diagnosed Date Prostate cancer 01/15/2023 Social History Tobacco Use Types Packs/Day Years [...] Comments Blood Pressure 142/90 08/04/2024 10:38 AM SEASONER HAND Pulse 72 08/04/2024 10:38 AM SEASONER HAND Temperature 36.2 C (97.2 F) 08/04/2024 10:38 AM SEASONER HAND Respiratory Rate 18 08/04/2024 10:3 8 AM SEASONER HAND Oxygen Saturation 98% 08/04/2024 10: 38 AM SEASONER HAND Inhaled Oxygen Concentration - - Weight 102.3 kg (225 lb 9.6 oz) 025 10:38 AM SEASONER HAND Height 177.8 cm (5' 10) 08/04/2024 10: 38 AM SEASONER HAND Body Mass Index 32.37 08/04/2024 10:38 AM SEASONER HAND Plan of Treatment Upcoming Encounters Date Type Department Care Team (Late st Contact Info) Description 01/26/2025 10:00 AM CDT Lab [facility] [id number] [phone] Nurse, [facility] 02/02/2025 10:45 AM CDT Office Visit [facility] [address] [facility] [employer] [address] Josh Yoo MD [address] [place] [phone] Health Maintenance Due Date Last Done [...] on patient's age to complete this topic Human Papillomavirus (HPV) Immunization Aged Out No longer eligible based on patient's age to complete this topic Meningococcal Immunization (ACWY) Aged Out No longer eligible based on patient's age to complete this topic Rotavirus Immunization Aged Out No lo nger eligible based on patient's age to complete this topic Insurance MEDICARE C AETNA Care Teams Knot Tying Operator Relationship Specialty Start Date End Date Lenni Armijo MD PCP - General Family Medicine 12/18/22 Josh Yoo MD [address] [place] [phone] Consulting Physician Oncology 11/24/23
== END 2024-11-22 08:20 | disposition home or self-care (01) ==
PROVIDERS: PCP Family Medicine Adolescent Medicine; Visit Provider Urology
DX: C61 Malignant neoplasm of prostate (principal)
CPT/HCPCS: 78306; A9503

== ENCOUNTER 2024-11-29 13:22 | Outpatient (CLI) | payer MEDICARE, SELFPAY ==
--- NOTE | ~2024-11-29 | CT_ITS ---
CT of the Abdomen and Pelvis: Indication: Prostate cancer Technique: 2.5 mm axial scans were obtained through the abdomen and pelvis following intravenous adm inistration of 100 cc of Omnipaque 350. Dose reduction technique was used on this scan by utilizing a utomated exposure control and iterative reconstruction technique. The dose-length product (DLP) was 9 94.11 mGy-cm. COMPARISON: 12/14/2023 Findings: Scans through the lung bases are unremarkable. The liver, spleen, pancreas, right adrenal gland and kidneys are within normal limits. Cholelithiasis noted. Stable 1.8 cm left adrenal nodule. There are atherosclerotic calcifications of the aorta. . No lymphadenopathy. Possible wall thickening the base of the cecum with diffuse dilatation of the appendix to 9-10 mm. No acute inflammatory change identified in the periappendiceal region. Images through the pelvis were performed. Urinary bladder unremarkable. No pelvic mass seen. Bilatera l fat-containing inguinal hernias are present. No ascites. Impression: Suspected wall thickening of the base of the cecum with associated dilatation of the appendix. Neopla stic lesion at the base of the cecum with relative obstruction of the appendiceal lumen is a consider ation. No acute inflammatory change evident. Early appendicitis cannot be completely excluded however . Correlate clinically. Consider colonoscopy, or possibly PET/CT to better evaluate for cecal neoplas tic lesion. Stable 1.7 left adrenal nodule. Cholelithiasis. Bilateral fat-containing inguinal hernias. Reviewed, dictated and finalized at [facility]. Impression: Suspected wall thickening of the base of the cecum with associated dilatation o f the appendix. Neoplastic lesion at the base of the cecum with relative obstru ction of the appendiceal lumen is a consideration. No acute inflammatory change evident. Early appendicitis cannot be completely excluded however. Correlate c linically. Consider colonoscopy, or possibly PET/CT to better evaluate for ceca l neoplastic lesion. Stable 1.7 left adrenal nodule. Cholelithiasis. Bilateral fat-containing inguinal hernias.
[2024-11-29 13:57] LABS: Estimated Glomerular Filt Rate > 60
--- OUTSIDE RECORDS SUMMARY | 2024-11-29 14:05 | XMS_ITS | Encounter Summary ---
Author Organization [facility] Address [address] [place] [address] Care Team Providers Care Security Systems Specialist Name Role Phone Unavailable Primary Care Provider Unavailabl e Encounter Details Date Type Department Care Team (Late st Contact Info) Description 06/02/2024 Lab Requisition [facility] - DermPath Lab [address] [facility], [place] [phone] Prasad Lane MD [facility] DERMATOLOGY [address] [place] [phone] Squamous cell carcinoma of skin of scalp and neck Social History Tobacco Use Types Packs/Day Years Used Date Smoking Tobacco: Never Assessed Sex and Gender Information Value Date Recorded Sex Assigned at Not on file Legal Sex Male 1:11 PM CLOTH PRINTER Gender Identity Not on file Sexual Orientation Not on file documented as of this encounter Plan of Treatment Not on file documented as of this encounter Procedures Procedure Name Priority Date/Time Associated Diagnosis Comments DERMATOPATHOLOGY Routine 06/02/2024 3:33 AM CLOTH PRINTER Squamous 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 SKIN, right frontal scalp: SQUAMOUS CELL CARCINOMA, MODERATELY DIFFERENTIATED AND INFILTRATIVE (C44.42) NOT PRESENT AT MARGIN DERMAL SCAR (L90.5) (see microscopic description and comment) 1:25 PM [facility] DERMATOPATHOLOGY LABORATORY at 1325 CLOTH PRINTER Clinical History SCC - check margins 1:25 PM [facility] DERMATOPATHOLOGY LABORATORY Gross Description Specimen A: Received is one formalin filled container labeled with the patient's name and designated right frontal scalp. The specimen consists of a non-oriented ellipse of skin measuring 40o89t92 mm. The epidermal surface is unremarkable. The margin is inked green. The 12 o'clock and 6 o'clock tips are submitted in cassette 1. The remainder of the ellipse is serially sectioned and submitted in cassette 2-15. Jar 0. 1:25 PM [facility] DERMATOPATHOLOGY LABORATORY Microscopic Description Specimen A. [...] subcutaneous tissue (Gustavo level V). 1:25 PM [facility] DERMATOPATHOLOGY LABORATORY Disclaimer An external and internal positive and negative controls are appropriate for the histochemical, immunohistochemical and immunofluorescence stain(s) in this case (if any), except where stated explicitly. The performance characteristics of the stain(s) cited in this report were developed and its performance characteristic determined by the Dermatopathology Laboratory at [facility], directed by Dr. Maurice Allred. These tests need not be, and therefore are not, approved by the [place] Food and Drug Administration. The tests are used for clinical purposes. Billing Codes Specimen Charges Stain Charges 21057 1 4 1:25 PM [facility] DERMATOPATHOLOGY LABORATORY Embedded Images 1:25 PM [facility] DERMATOPATHOLOGY LABORATORY Pathology/Cytolo gy TISSUE SPECIMEN FROM SKIN / Unknown 06/02/2024 3:33 AM CLOTH PRINTER 06/03/2024 12:27 PM [facility] Prasad Lane MD LAB - PATHOLOGY/CYTOLOGY NAYLA CEJA Final Result DERMATOPATHOLOGY LABORATORY [facility] - Department of Dermatology [address], [address] [phone] documented in this encounter Visit Diagnoses Diagnosis 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
--- OUTSIDE RECORDS SUMMARY | 2024-11-29 14:05 | XMS_ITS ---
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 Past Treatment and Therapy Plans No past plan information found. Radiation Treatments * Course C1 03/09/2023 - 03/25/2023 Treatment Period Energy Fraction Dose Fractions Total Dose Plans Planned Pelv_SBRT_Inf 03/09/2023 - 03/25/2023 5 of 5 / Pelv_SBRT_Sup 03/09/2023 - 03/25/2023 5 of 5 / Reference Points Delivered Pelv_SBRT_Inf 03/09/2023 - 03/25/2023 36.25 Pelv_SBRT_Sup 03/09/2023 - 03/25/2023 40
--- OUTSIDE RECORDS SUMMARY | 2024-11-29 14:05 | XMS_ITS | Clinical Summary ---
Author Organization [facility] Address [address] [place] [address] Care Team Providers Care Fisher Mussel Name Role Phone Luis Ramos MD Unavailable Lenin Armijo MD Primary Care Provider [phone] Josh Yoo MD Unavailable [phone] Allergies No known active allergies Medications THIOCTIC [...] cancer metastatic t o intraabdominal lymph node ([facility]/HCC [facility]) 02/19/2024 Social History Tobacco Use Types Packs/Day [...] 10:39 AM CDT Height 180.3 cm (5' 11) 07/13/2023 10: 09 AM RESPITE CARE PROVIDER Body Mass Index 32.25 07/13/2023 10:09 AM RESPITE CARE PROVIDER Plan of Treatment Health Maintenance Due Date Last Done Comments DTaP, Tdap and Td Vaccines (1 - Tdap) 1956 Pneumococcal Vaccine: 50+ Years (1 of 1 - PCV) 1987 Zoster Vaccines (1 of 2) 1987 Annual Medicare Wellness Visit 2002 RSV Immunization or 60+ Years (1 - 1-dose 75+ series) 2012 COVID-19 Vaccine ( season) 2024 08/04/2022, 03/14/2021, 08/28/2020, Additional history exists Meningococcal B Vaccine Aged Out No l onger eligible based on patient's age to complete this topic Meningococcal Vaccine Aged Out No marry felicity eligible based on patient's age to complete this topic RSV Immunizations Under 20 Months Aged Out No longer eligible based on patient's age to complete this topic Insurance AETNA Care Teams Fisher Mussel Relationship Specialty Start Date End Date Lenin Armijo MD [address] [address] PCP - General FAMILY PRACTICE 11/19/23 Luis Ramos MD [address] [address] Consulting Physician RADIATION ONCOLOGY 01/05/23 [place] [address] [place] [address] Medical Oncologist HEMATOLOGY/ONCOLOGY 11/19/23
--- OUTSIDE RECORDS SUMMARY | 2024-11-29 14:05 | XMS_ITS | Clinical Summary ---
Author Organization [facility] Address [address], [facility] [address] [place] [address] Phone Care Team Providers Care Bridge Crew Member Name Role Phone Lenin Armijo MD Primary Care Provider + Josh Yoo MD Unavailable [phone] Allergies No known active allergies Medications lisinopril [...] Comments Blood Pressure 142/90 08/04/2024 10:38 AM WRECKER OPERATOR Pulse 72 08/04/2024 10:38 AM WRECKER OPERATOR Temperature 36.2 C (97.2 F) 08/04/2024 10:38 AM WRECKER OPERATOR Respiratory Rate 18 08/04/2024 10:3 8 AM WRECKER OPERATOR Oxygen Saturation 98% 08/04/2024 10: 38 AM WRECKER OPERATOR Inhaled Oxygen Concentration - - Weight 102.3 kg (225 lb 9.6 oz) 025 10:38 AM WRECKER OPERATOR Height 177.8 cm (5' 10) 08/04/2024 10: 38 AM WRECKER OPERATOR Body Mass Index 32.37 08/04/2024 10:38 AM WRECKER OPERATOR Plan of Treatment Upcoming Encounters Date Type Department Care Team (Late st Contact Info) Description 01/26/2025 10:00 AM CDT Lab [facility] [address] [address] Nurse, [facility] 02/02/2025 10:45 AM CDT Office Visit [facility] [address] [facility] [address] Josh Yoo MD [address] [place] [phone] Health Maintenance Due Date Last Done [...] topic Insurance MEDICARE C AETNA Care Teams Bridge Crew Member Relationship Specialty Start Date End Date Lenin Armijo MD PCP - General Family Medicine 12/18/22 Josh Yoo MD [address] [place] [phone] Consulting Physician Oncology 11/24/23
--- OUTSIDE RECORDS SUMMARY | 2024-11-29 14:05 | XMS_ITS | Encounter Summary ---
Author Organization [facility] Address [address] [place] [address] Care Team Providers Care Elevator Constructor Electric Name Role Phone Unavailable Primary Care Provider Unavailabl e Encounter Details Date Type Department Care Team (Late st Contact Info) Description 08/18/2023 Lab Requisition [facility] - DermPath Lab [address] [facility] [place] [phone] Prasad Lane MD [facility] DERMATOLOGY [address] [place] [phone] Neoplasm of uncertain behavior of skin Social History Tobacco Use Types Packs/Day Years Used Date Smoking Tobacco: Never Assessed Sex and Gender Information Value Date Recorded Sex Assigned at Not on file Legal Sex Male 1:11 PM RE ETCHER Gender Identity Not on file Sexual Orientation Not on file documented as of this encounter Plan of Treatment Not on file documented as of this encounter Procedures Procedure Name Priority Date/Time Associated Diagnosis Comments DERMATOPATHOLOGY Routine 08/18/2023 12:0 0 AM RE ETCHER Neoplasm of uncertain behavior of skin documented in this encounter Results * DERMATOPATHOLOGY (08/18/2023 12:00 AM RE ETCHER) Case Report Dermatopathology Report Case: [id number] Authorizing Provider: Prasad Lane MD Collected: 08/18/2023 12:00 AM Ordering Location: [facility] - Received: 08/19/2023 02:02 PM DermPath Lab Pathologist: Preethi Clemons MD Specimens: A) - Skin, left medial wrist B) - Skin, left superior brad of antihelix C) - Skin, left lateral elbow 12:37 PM RE ETCHER DERMATOPATHOLOGY LABORATORY Final Diagnosis Specimen A. SKIN, left medial wrist: HYPERPLASTIC (HYPERTROPHIC) ACTINIC KERATOSIS (L57.0) Specimen B. SKIN, left superior brad of antihelix: BASAL CELL CARCINOMA, NODULAR TYPE (C44.219) Specimen C. 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 The specimen consists of a shave biopsy measuring 43o54x3 mm. Jar 0+. Specimen B: Received is [...] characteristic determined by the Dermatopathology Laboratory at [facility], directed by Dr. Maurice Allred. These tests need not be, and therefore are not, approved by the [place] Food and Drug Administration. The tests are used for clinical purposes. Billing Codes Specimen Charges Stain Charges 40833 38002 32469 1 1 1 4 12:37 PM RE ETCHER DERMATOPATHOLOGY LABORATORY Embedded Images 12:37 PM RE ETCHER DERMATOPATHOLOGY LABORATORY Pathology/Cytology TISSUE SPECIMEN FROM SKIN / Unknown 08/18/2023 08/19/2023 2:02 PM RE ETCHER Miscellaneous samples (specimen) TISSUE SPECIMEN FROM SKIN / Unknown 08/18/2023 08/19/2023 2:05 PM RE ETCHER Miscellaneous samples (specimen) TISSUE SPECIMEN FROM SKIN / Unknown 08/18/2023 08/19/2023 2:[address] MD LAB - PATHOLOGY/CYTOLOGY ORDE MARCIAL Final Result DERMATOPATHOLOGY LABORATORY [facility] - Department of Dermatology [facility] Medicine [address] [place] [address], [address] [phone] documented in this encounter Visit Diagnoses Diagnosis Neoplasm of uncertain behavior of skin documented in this encounter
--- OUTSIDE RECORDS SUMMARY | 2024-11-29 14:05 | XMS_ITS | Encounter Summary ---
Author Organization [facility] Address [address] [facility] [place] [address] Care Team Providers Care Parts Counter Representative Name Role Phone Unavailable Primary Care Provider Unavailabl e Encounter Details Date Type Department Care Team (Late st Contact Info) Description 05/09/2024 Lab Requisition [facility] - DermPath Lab [address] [facility] [place] [phone] Bianka Luther MD [address] [place] [address] [place] [phone] Social History Tobacco Use Types Packs/Day Years Used Date Smoking Tobacco: Never Assessed Sex and Gender Information Value Date Recorded Sex Assigned at Not on file Legal Sex Male 1:11 PM OUTSOLES CHANNEL OPENER Gender Identity Not on file Sexual Orientation Not on file documented as of this encounter Plan of Treatment Not on file documented as of this encounter Procedures Procedure Name Priority Date/Time Associated Diagnosis Comments DERMATOPATHOLOGY Routine 05/06/2024 3:33 AM OUTSOLES CHANNEL OPENER documented in this encounter Results * DERMATOPATHOLOGY (05/06/2024 3:33 AM OUTSOLES CHANNEL OPENER) Case Report Dermatopathology Report Case: [id number] Authorizing Provider: Bianka Luther MD Collected: 05/06/2024 03:33 AM Ordering Location: [facility] Physician [facility] - Received: 05/09/2024 12:11 PM DermPath Lab Pathologist: Jw Allred MD Specimen: Skin, right frontal scalp 4 3:31 PM OUTSOLES CHANNEL OPENER DERMATOPATHOLOGY LABORATORY Final Diagnosis Specimen A. 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 The specimen consists of a shave biopsy measuring five piece 8x5x1;13x8x1;15x8x1 ;7x4x1;7x5x1 mm. Jar 0. 3:31 PM [facility] DERMATOPATHOLOGY LABORATORY Microscopic Description Specimen A. SKIN, right frontal scalp: Sections show skin with irregularly shaped nests of keratinocytes with evidence of cornification. In some nests, there is loss of cohesion between the neoplastic cells, as well as individual dyskeratotic cells that lack intercellular bridges. 3:31 PM [facility] DERMATOPATHOLOGY LABORATORY Disclaimer An external and internal positive and negative controls are appropriate for the histochemical, immunohistochemical and immunofluorescence stain(s) in this case (if any), except where stated explicitly. The performance characteristics of the stain(s) cited in this report were developed and its performance characteristic determined by the Dermatopathology Laboratory at [facility], directed by Dr. Maurice Allred. These tests need not be, and therefore are not, approved by the [place] Food and Drug Administration. The tests are used for clinical purposes. Billing Codes Specimen Charges Stain Charges 56821 1 4 3:31 PM [facility] DERMATOPATHOLOGY LABORATORY Embedded Images 3:31 PM [facility] DERMATOPATHOLOGY LABORATORY Pathology/Cytolo gy TISSUE SPECIMEN FROM SKIN / Unknown 05/06/2024 3:33 AM OUTSOLES CHANNEL OPENER 05/09/2024 12:11 PM [facility] us Bianka Ltuher MD LAB - PATHOLOGY/CYTOLOGY ORDERAB LES Final Result DERMATOPATHOLOGY LABORATORY [facility] - Department of Dermatology [address] [place] [address], [facility] [phone] documented in this encounter Visit Diagnoses Not on filedocumented in this encounter
--- OUTSIDE RECORDS SUMMARY | 2024-11-29 14:05 | XMS_ITS | Clinical Summary ---
Author Organization [facility] Address [address] [facility] [place] [address] Care Team Providers Care Doll Wig Maker Name Role Phone Unavailable Primary Care Provider Unavailabl e Source Comments [facility],non-owned Affiliates and Associated Physician Practices is amultiple site organization consisting of ambulatory clinics and hospital sitesin [place], [place], [place] and [place]. This disclosure is being madepursuant to the Care Everywhere program and may not contain all information available regarding this patient. Last updated 18.[facility] Social History Tobacco Use Types Packs/Day Years Used Date Smoking Tobacco: Never Assessed Sex and Gender Information Value Date Recorded Sex Assigned at Not on file Legal Sex Male 1:11 PM POULTRY FIELD SERVICE TECHNICIAN Gender Identity Not on file Sexual Orientation [...] to complete this topic Insurance ELAINE ISAAC [id number] AETNA MEDICARE ADV
== END 2024-11-29 13:23 | disposition home or self-care (01) ==
PROVIDERS: PCP Family Medicine Adolescent Medicine; Visit Provider Urology
DX: C61 Malignant neoplasm of prostate (principal); K80.20 Calculus of gallbladder without cholecystitis without obstruction; K40.20 Bilateral inguinal hernia, without obstruction or gangrene, not specified as recurrent; D35.02 Benign neoplasm of left adrenal gland
CPT/HCPCS: 74177; Q9967

== ENCOUNTER 2025-03-12 15:34 | Emergency (ER) | payer MEDICARE, SELFPAY ==
--- OUTSIDE RECORDS SUMMARY | 2025-03-12 15:38 | XMS_ITS | Encounter Summary ---
Author Organization [facility] Address [address] [facility] [place] [address] Care Team Providers Care Combination Saw Operator Name Role Phone Unavailable Primary Care Provider Unavailabl e Encounter Details Date Type Department Care Team (Late st Contact Info) Description 05/09/2024 Lab Requisition [facility] - DermPath Lab [address] [facility], [place] [phone] Bianka Luther MD [address] [place] [address] [place] [phone] Social History Tobacco Use Types Packs/Day Years Used Date Smoking Tobacco: Never Assessed Sex and Gender Information Value Date Recorded Sex Assigned at Not on file Legal Sex Male 1:11 PM LABOR STANDARDS DIRECTOR Gender Identity Not on file Sexual Orientation Not on file documented as of this encounter Plan of Treatment Not on file documented as of this encounter Procedures Procedure Name Priority Date/Time Associated Diagnosis Comments DERMATOPATHOLOGY Routine 05/06/2024 3:33 AM LABOR STANDARDS DIRECTOR documented in this encounter Results * DERMATOPATHOLOGY (05/06/2024 3:33 AM LABOR STANDARDS DIRECTOR) Case Report Dermatopathology Report Case: [id number] Authorizing Provider: Bianka Luther MD Collected: 05/06/2024 03:33 AM Ordering Location: [facility] Physician [facility] - Received: 05/09/2024 12:11 PM DermPath Lab Pathologist: Jw Allred MD Specimen: Skin, right frontal scalp 4 3:31 PM LABOR STANDARDS DIRECTOR DERMATOPATHOLOGY LABORATORY Final Diagnosis Specimen A. SKIN, right frontal scalp: SQUAMOUS CELL CARCINOMA, ACANTHOLYTIC TYPE (C44.42) 4 3:31 PM LABOR STANDARDS DIRECTOR DERMATOPATHOLOGY LABORATORY at 1531 LABOR STANDARDS DIRECTOR Clinical History SCC 4 3:31 PM [facility] DERMATOPATHOLOGY LABORATORY Gross Description Specimen [...] characteristic determined by the Dermatopathology Laboratory at [facility], directed by Dr. Maurice Allred. These tests need not be, and therefore are not, approved by the [place] Food and Drug Administration. The tests are used for clinical purposes. Billing Codes Specimen Charges Stain Charges 91043 1 4 3:31 PM [facility] DERMATOPATHOLOGY LABORATORY Embedded Images 3:31 PM [facility] DERMATOPATHOLOGY LABORATORY Pathology/Cytolo gy TISSUE SPECIMEN FROM SKIN / Unknown 05/06/2024 3:33 AM LABOR STANDARDS DIRECTOR 05/09/2024 12:11 PM [facility] us Bianka Luther MD LAB - PATHOLOGY/CYTOLOGY ORDERAB LES Final Result DERMATOPATHOLOGY LABORATORY [facility] - Department of Dermatology [address] [place] [address], [facility] [phone] documented in this encounter Visit Diagnoses Not on filedocumented in this encounter
--- OUTSIDE RECORDS SUMMARY | 2025-03-12 15:38 | XMS_ITS | Encounter Summary ---
Author Organization [facility] Address [address] [facility] [place] [address] Care Team Providers Care Hearse Driver Name Role Phone Unavailable Primary Care Provider Unavailabl e Encounter Details Date Type Department Care Team (Late st Contact Info) Description 06/02/2024 Lab Requisition [facility] - DermPath Lab [address] [facility] [place] [phone] [address]ad [address] MD [facility] DERMATOLOGY [address] [place] [phone] Squamous cell carcinoma of skin of scalp and neck Social History Tobacco Use Types Packs/Day Years Used Date Smoking Tobacco: Never Assessed Sex and Gender Information Value Date Recorded Sex Assigned at Not on file Legal Sex Male 1:11 PM PROFESSOR OF LITERACY Gender Identity Not on file Sexual Orientation Not on file documented as of this encounter Plan of Treatment Not on file documented as of this encounter Procedures Procedure Name Priority Date/Time Associated Diagnosis Comments DERMATOPATHOLOGY Routine 06/02/2024 3:33 AM PROFESSOR OF LITERACY Squamous cell carcinoma of skin of scalp and neck documented in this encounter Results * DERMATOPATHOLOGY (06/02/2024 3:33 AM PROFESSOR OF LITERACY) Case Report Dermatopathology Report Case: [id number] Authorizing Provider: Prasad Lane MD Collected: 06/02/2024 03:33 AM Ordering Location: [facility] - Received: 06/03/2024 12:27 PM DermPath Lab Pathologist: Jw Allred MD Specimen: Skin, right frontal scalp 1:25 PM PROFESSOR OF LITERACY DERMATOPATHOLOGY LABORATORY Final Diagnosis Specimen A. SKIN, right frontal scalp: SQUAMOUS CELL CARCINOMA, MODERATELY DIFFERENTIATED AND INFILTRATIVE (C44.42) NOT PRESENT AT MARGIN DERMAL SCAR (L90.5) (see microscopic description and comment) 1:25 PM [facility] DERMATOPATHOLOGY LABORATORY at [address]25 PROFESSOR OF LITERACY Clinical History SCC - check margins 1:25 PM [facility] DERMATOPATHOLOGY LABORATORY Gross Description Specimen A: Received is one formalin filled container labeled with the patient's name and designated right frontal scalp. The specimen consists of a non-oriented ellipse of skin measuring [id number] mm. The epidermal surface is unremarkable. The [...] characteristic determined by the Dermatopathology Laboratory at [facility], directed by Dr. Maurice Allred. These tests need not be, and therefore are not, approved by the [place] Food and Drug Administration. The tests are used for clinical purposes. Billing Codes Specimen Charges Stain Charges 14003 1 4 1:25 PM [facility] DERMATOPATHOLOGY LABORATORY Embedded Images 1:25 PM [facility] DERMATOPATHOLOGY LABORATORY Pathology/Cytolo gy TISSUE SPECIMEN FROM SKIN / Unknown 06/02/2024 3:33 AM PROFESSOR OF LITERACY 06/03/2024 12:27 PM [facility] Prasad Lane MD LAB - PATHOLOGY/CYTOLOGY NAYLA CEJA Final Result DERMATOPATHOLOGY LABORATORY [facility] - Department of Dermatology [address], [address] [phone] documented in this encounter Visit Diagnoses Diagnosis 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
--- OUTSIDE RECORDS SUMMARY | 2025-03-12 15:38 | XMS_ITS | Clinical Summary ---
Author Organization [facility] Address [address] [place] [address] Care Team Providers Care Assembling Motor Builder Name Role Phone Unavailable Primary Care Provider Unavailabl e Source Comments [facility],non-owned Affiliates and Associated Physician Practices is amultiple site organization consisting of ambulatory clinics and hospital sitesin [place], [place], [place] and [place]. This disclosure is being madepursuant to the Care Everywhere program and may not contain all information available regarding this patient. 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
--- OUTSIDE RECORDS SUMMARY | 2025-03-12 15:38 | XMS_ITS ---
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
--- OUTSIDE RECORDS SUMMARY | 2025-03-12 15:38 | XMS_ITS | Clinical Summary ---
Author Organization [facility] Address [address] [place] [address] Phone Care Team Providers Care Pega Developer Name Role Phone Lenin Armijo MD Primary Care Provider + Josh Yoo MD Unavailable [phone] Allergies No known active allergies Medications lisinopril [...] Encounters Date Type Department Care Team Description 02/02/2025 10:45 AM CDT Office Visit [facility] [address] [place] [address] Sharri Weston, MARINE DIESEL TECHNICIAN, DIRECTOR PUBLIC SERVICE Prostate cancer (HCC) (Primary Dx) 02/02/2025 Travel 01/27/2025 Results Follow-Up [facility] [address] [place] [address] Sharri Weston, MARINE DIESEL TECHNICIAN, DIRECTOR PUBLIC SERVICE CMP (COMPREHENSIVE METABOLIC PANEL), CBC WITH AUTO DIFF [place] 01/26/2025 10:00 AM CDT Lab [facility] [address] [address] Nurse, Dilcia Hawley Prostate cancer (HCC) (Primary Dx) 01/26/2025 Travel from Last 3 Months Social History [...] Sign Reading Time Taken Comments Blood Pressure 138/86 02/02/2025 11:14 AM CDT Pulse 69 02/02/2025 11:14 AM CDT Temperature 36.7 C (98 F) 02/02/2025 11:14 AM CDT Respiratory Rate 16 02/02/2025 11:14 AM CDT Oxygen Saturation 96% 02/02/2025 11:14 AM CDT Inhaled Oxygen Concentration - - Weight 100.7 kg (222 lb) 02/02/2025 11:14 AM CDT Height 177.8 cm (5' 10) 02/02/2025 11:14 AM CDT Body Mass Index 31.85 02/02/2025 11:14 AM CDT Plan of Treatment Upcoming Encounters Date Type Department Care Team (Late st Contact Info) Description 07/27/2025 10:45 AM FAIRING MAN Lab [facility] [address] [address] [address] NurseDilcia 08/03/2025 10:45 AM FAIRING MAN Office Visit [facility] [address] [address] [address] Josh Yoo MD [address] [place] [address] Health Maintenance Due Date Last Done Comments Hepatitis C Virus (HCV) Screening 1937 Zoster Immunization (1 of 2) 1956 Respiratory Syncytial Virus (RSV) Immunization (Adult) (1 - 1-dose 75+ series) 2012 Influenza Immunization (#1) 2025 09/2 09/2023, 03/05/2023, 03/17/2022, Additional history exists SARS-COV-2 Immunization ( season) 2025 08/04/2022, 03/14/2021, 08/28/2020, Additional history exists Pneumococcal Immunization (50+ years) Completed 03/24/2017, 03/02/2014 DTaP/Tdap/Td Immunization Discontinued 2024, 03/02/2014, 12/14/2003 TdaP Immunization Completed 08/30/2024, 03/02/2014 Hepatitis B Immunization Aged Out No longer [...] Procedure Name Priority Date/Time Associated Diagnosis Comments CBC WITH AUTO DIFF [place] Routine 01/26/2025 11:46 AM CDT CMP (COMPREHENSIVE METABOLIC PANEL) Routine 01/26/2025 11:46 AM CDT Prostate cancer (HCC) PSA DIAGNOSTIC,TOTAL Routine 01/26/2025 11:46 AM CDT Prostate cancer (HCC) from Last 3 Months Results * (ABNORMAL) CBC WITH AUTO DIFF [place] (01/26/2025 11:46 AM CDT) WBC 6.9 4.0 - 10.0 10*3/uL [facility] HGB 12.6(L) 13.7 - 17.5 g/dL [facility] HCT 37.1(L) 40.1 - 51.0 % [facility] PLT 179 163 - 369 10*3/uL [facility] MPV 9.8 9.4 - 12.4 fL [facility] RBC 3.96(L) 4.63 - 6.08 10*6/uL [facility] MCV 94 79 - 95 fL [facility] MCH 31.8 25.6 - 32.2 pg [facility] MCHC 34.0 32.2 - 36.5 g/dL [facility] RDW 14.7(H) 11.6 - 14.4 % [facility] Neutrophils % 74.8(H) 36.0 - 66.0 % [facility] Lymphocytes % 17.4(L) 19.0 - 40.0 % [facility] Monocytes % 5.2 4.1 - 12.1 % [facility] Eosinophils % 1.7 0.0 - 3.5 % [facility] Basophils % 0.3 0.0 - 1.0 % [facility] Absolute Neutrophils 5.2 1.4 - 6.6 10*3/uL [facility] Absolute Lymphocytes 1.2 0.8 - 4.0 10*3/uL [facility] Absolute Monocytes 0.4 0.2 - 1.2 10*3/uL [facility] Absolute Eosinophils 0.1 0.0 - 0.4 10*3/uL [facility] Absolute Basophils 0.0 0.0 - 0.1 10*3/uL [facility] 01/26/2025 11:4 6 AM CDT us Sharri Weston APRN, DIRECTOR PUBLIC SERVICE LAB SEND OUTS Final Result [facility] [address] [place] [address], * PSA DIAGNOSTIC,TOTAL (01/26/2025 11:46 AM CDT) PSA 0.03 0.00 - 4.00 ng/mL [facility] Comment: Radha Paramagnetic Particle Chemiluminescent Immunoassay Method. Standardized against the WHO standard. Blood 01/26/2025 11:4 6 AM CDT Narrative [facility] - 01/27/2025 2:28 PM CDT Release to patient->Immediate Sharri Weston APRN, [place] CHEMISTRY ORDERABLES Final Result [facility] [place] [address], * (ABNORMAL) CMP (COMPREHENSIVE METABOLIC PANEL) (01/26/2025 11:46 AM CDT) Glucose 133(H) 70 - 105 mg/dL [facility] Blood Urea Nitrogen 24 7 - 25 mg/dL [facility] Creatinine 1.2 0.7 - 1.3 mg/dL [facility] Sodium 144 136 - 145 mEq/L [facility] Potassium 3.1(L) 3.5 - 5.1 mEq/L [facility] Chloride 103 98 - 107 mEq/L [facility] Bicarbonate 31 21 - 31 mEq/L [facility] Total Bilirubin 0.9 0.3 - 1.0 mg/dL [facility] Alk. Phosphatase 72 34 - 104 U/L [facility] Aspartate Aminotransferase 15 13 - 39 U/L [facility] Alanine Aminotransferase 10 7 - 52 U/L [facility] Total Protein 5.8(L) 6.4 - 8.9 g/dL [facility] Albumin 4.0 3.5 - 5.7 g/dL [facility] Calcium 9.4 8.6 - 10.3 mg/dL [facility] Anion Gap 13.1 7.0 - 15.0 mEq/L [facility] Globulin 1.8(L) 2.0 - 3.5 g/dL [facility] EGFR 58(L) >60 ml/min/1. 73m2 [facility] Comment: This eGFR is calculated using 2020 CKD-EPI Creatinine equation without race modifier based on the NKF-ASN task force recommendations Equation: wXHK=249*min(SCr/k,1)a*max(SCr/k,1)-1.200*0.9938Age*1.012 (if female), where SCr is serum creatinine, k is 0.7 for females and 0.9 for males, and a is -0.241 for females and -0.302 for males Blood 01/26/2025 11:4 6 AM CDT Narrative [facility] - 01/26/2025 3:56 PM CDT Release to patient->Immediate IS THE PATIENT REQUIRED TO BE FASTING FOR 8 HOURS?->No Sharri Weston APRN, DIRECTOR PUBLIC SERVICE CHEMISTRY ORDERABLES Final Result [facility] [address] [place] [address], from Last 3 Months Insurance MEDICARE C AETNA Care Teams Pega Developer Relationship Specialty Start Date End Date Lenin Armijo MD PCP - General Family Medicine 12/18/22 Josh Yoo MD [facility] [place] [phone] Consulting Physician Oncology 11/24/23
--- OUTSIDE RECORDS SUMMARY | 2025-03-12 15:38 | XMS_ITS | Encounter Summary ---
Author Organization [facility] Address [address] [place] [address] Care Team Providers Care Store Lead Name Role Phone Unavailable Primary Care Provider Unavailabl e Encounter Details Date Type Department Care Team (Late st Contact Info) Description 08/18/2023 Lab Requisition [facility] - Derm[facility] Lab [address] [facility], [place] [phone] Prasad Lane MD [facility] DERMATOLOGY [address] [place] [phone] Neoplasm of uncertain behavior of skin Social History Tobacco Use Types Packs/Day Years Used Date Smoking Tobacco: Never Assessed Sex and Gender Information Value Date Recorded Sex Assigned at Not on file Legal Sex 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 Gender Identity Not on file Sexual Orientation Not on file documented as of this encounter Plan of Treatment Not on file documented as of this encounter Procedures Procedure Name Priority Date/Time Associated Diagnosis Comments DERMATOPATHOLOGY Routine 08/18/2023 12:0 0 AM ASSISTANT GOLF PROFESSIONAL Neoplasm of uncertain behavior of skin documented in this encounter Results * DERMATOPATHOLOGY (08/18/2023 12:00 AM ASSISTANT GOLF PROFESSIONAL) Case Report Dermatopathology Report Case: [id number] Authorizing Provider: Prasad Lane MD Collected: 08/18/2023 12:00 AM Ordering Location: [facility] - Received: 08/19/2023 02:02 PM DermPath Lab Pathologist: Preethi Clemons MD Specimens: A) - Skin, left medial wrist B) - Skin, left superior brad of antihelix C) - Skin, left lateral elbow 12:37 PM ASSISTANT GOLF PROFESSIONAL DERMATOPATHOLOGY LABORATORY Final Diagnosis Specimen A. SKIN, left medial wrist: HYPERPLASTIC (HYPERTROPHIC) ACTINIC KERATOSIS (L57.0) Specimen B. SKIN, left superior brad of antihelix: BASAL CELL CARCINOMA, NODULAR TYPE (C44.219) Specimen C. 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 The specimen consists of a shave biopsy measuring 98u64p6 mm. Jar 0+. Specimen B: Received is [...] 10x9x2 mm. Jar 0. 12:37 PM [facility] DERMATOPATHOLOGY LABORATORY Microscopic Description Specimen [...] levels, and dyskeratotic cells. 12:37 PM [facility] DERMATOPATHOLOGY LABORATORY Disclaimer An external and internal positive and negative controls are appropriate for the histochemical, immunohistochemical and immunofluorescence stain(s) in this case (if any), except where stated explicitly. The performance characteristics of the stain(s) cited in this report were developed and its performance characteristic determined by the Dermatopathology Laboratory at [facility], directed by Dr. Maurice Allred. These tests need not be, and therefore are not, approved by the [place] Food and Drug Administration. The tests are used for clinical purposes. Billing Codes Specimen Charges Stain Charges 85203 54406 [id number] 1 1 1 4 12:37 PM ASSISTANT GOLF PROFESSIONAL DERMATOPATHOLOGY LABORATORY Embedded Images 12:37 PM ASSISTANT GOLF PROFESSIONAL DERMATOPATHOLOGY LABORATORY Pathology/Cytology TISSUE SPECIMEN FROM SKIN / Unknown 08/18/2023 08/19/2023 2:02 PM ASSISTANT GOLF PROFESSIONAL Miscellaneous samples (specimen) TISSUE SPECIMEN FROM SKIN / Unknown 08/18/2023 08/19/2023 2:05 PM ASSISTANT GOLF PROFESSIONAL Miscellaneous samples (specimen) TISSUE SPECIMEN FROM SKIN / Unknown 08/18/2023 08/19/2023 2:05 PM ASSISTANT GOLF PROFESSIONAL Prasad Lane MD LAB - PATHOLOGY/CYTOLOGY ORDE MARCIAL Final Result DERMATOPATHOLOGY LABORATORY [facility] - Department of Dermatology [facility] Medicine [address] [place] [address], [address] [phone] documented in this encounter Visit Diagnoses Diagnosis Neoplasm of uncertain behavior of skin documented in this encounter
[2025-03-12 15:42] VITALS: BP 173/61; PULSE 59; RESP 18; TEMP 36.4; O2SAT 99
--- NOTE | 2025-03-12 15:55 | ED.GENADULT ---
HPI - General Adult General Chief complaint: Unspecified Stated complaint: High Blood Pressure Time Seen by Provider: 03/12/25 15:45 Source: patient Mode of arrival: ambulatory Limitations: no limitations History of Present Illness HPI narrative: Abdoul is an 89-year-old male patient presenting to the clinic today with complaints of high blood pressure. He was seen on February 23 by his primary care provider and he was taken off some of his blood pressure medications at that time because he was having some issues with low blood pressures. PCP stopped his hydrochlorothiazide and his potassium pill. He is still taking lisinopril 40 mg daily. Today his blood pressure was 206 systolic. Denies any shortness of breath, chest pain, headache, dizziness, visual changes, or any other concerns. He does have some swelling in his lower extremities. Is wearing compression hose at this time. States the swelling and his blood pressure has improved since taking a dose of hydrochlorothiazide this afternoon Related Data Home Medications ?Medication ?Instructions ?Recorded ?Confirmed ?Last Taken ?Type alpha lipoic acid 600 mg capsule 600 mg PO DAILY 09/04/21 02/23/25 Unknown History cholecalciferol (vitamin D3) 50 50 mcg PO DAILY 09/04/21 02/23/25 Unknown History mcg (2,000 unit) capsule vitamin B complex 1 tablet PO DAILY 09/04/21 02/23/25 Unknown History abiraterone 250 mg tablet 1,000 mg PO DAILY 11/24/23 02/23/25 Unknown History CBD Chewable 1 tablet PO DAILY 09/13/24 02/23/25 Unknown History Allergies Allergy/AdvReac Type Severity Reaction Status Date / Time No Known Allergies Allergy Verified 02/23/25 11:16 Review of Systems Review of Systems: Pertinent positives per HPI. Patient denies any fever, chills, rash, headache, visual changes, dizziness, cough, runny nose, sore throat, shortness of breath, chest pain, palpitations, nausea, vomiting, diarrhea, constipation, abdominal pain, or any urinary issues. [facility] Past Medical History Medical History BMI 31.0-31.9,adult Family History Family History Mother Cerebrovascular accident Father No problems noted. Sibling No problems noted. Other Malignant neoplasm of prostate Social History Social History Smoking status: Never smoker Second hand tobacco smoke exposure: No Alcohol intake: current Drinks per week: 2 Substance use: never Substance use type: does not use Do You Feel Safe in your Home?: Yes Lack of Transportation: No Lack of Food: Never True Current Housing: I Have Housing Concerned About Future Housing: No Difficulty Paying Gas/Electric Bills: No Difficulty Paying for Meds: No Currently Unemployed: No Education: Master's Degree or Higher Difficulty w/ Childcare or Family Care: No Living arrangements: with family Occupation/Education: retired Additional occupation/education comments: [employer] Gender identity (if verbalized by the patient): Male Sexual Orientation (if Verbalized by the Patient): Straight or Heterosexual Spiritual care concerns: No Agree to blood products: Yes Comments At the time of my signature, I reviewed and agree with the nursing past medical, surgical, social, and family history. There is no relevant family history pertinent to the patient complaint. Exam Narrative: General: Well-developed, well nourished, in no apparent distress Head: Normocephalic, atraumatic. No JVD distention Cardio: Regular rate and rhythm, s1 and s2 normal, no S3 or S4, no murmur appreciated. Resp: Clear to auscultation bilaterally, no rhonchi, rales, wheezing or rubs. Extremities: No deformity, 1+ pitting edema bilaterally, no cyanosis, capillary refill less than 2 seconds, peripheral pulses palpable and strong. Integumentary: [place], warm, and dry, intact without lesion, no rashes. Course Course Emergency Course: Portions of this record may have been created with voice recognition software. Level of Care: Express Care Visit Vital Signs Vital signs: Vital Signs Temperature 36.4 C L 03/12/25 15:42 Pulse Rate 59 L 03/12/25 15:42 Respiratory Rate 18 03/12/25 15:42 Blood Pressure 173/61 H 03/12/25 15:42 Pulse Oximetry 99 03/12/25 15:42 Oxygen Delivery Room Air 03/12/25 15:42 Temperature 36.4 C L 03/12/25 15:42 Pulse Rate 59 L 03/12/25 15:42 Respiratory Rate 18 03/12/25 15:42 Blood Pressure 173/61 H 03/12/25 15:42 Pulse Oximetry 99 03/12/25 15:42 Oxygen Delivery Room Air 03/12/25 15:42 Vital signs reviewed Medical Decision Making MDM Narrative Medical decision making narrative: At the time of visit patient is resting comfortably on the exam table. Patient appears to be nontoxic. Complaints of high blood pressure. He was seen on February 23 by his primary care provider and he was taken off some of his blood pressure medications at that time because he was having some issues with low blood pressures. PCP stopped his hydrochlorothiazide and his potassium pill. He is still taking lisinopril 40 mg daily. Today his blood pressure was 206 systolic. Denies any shortness of breath, chest pain, headache, dizziness, visual changes, or any other concerns. He does have some swelling in his lower extremities. Is wearing compression hose at this time. On exam patient has regular heart rate rhythm, normal S1-S2, no S3-S4, no JVD distention, bilateral lower extremities 1+ pitting edema. States the swelling and his blood pressure has improved since taking a dose of hydrochlorothiazide. Repeat manual blood pressure was 172/82. Plan: I suspect patient has hypertension with bilateral lower extremity edema. Recommend checking blood pressure this evening and in the morning and contacting his PCP. If his blood pressure is 180 systolic or above or if he develops any dizziness, headache, visual changes, shortness of breath, or chest pain recommend going to the emergency room. I suspect he would likely need to be placed back on his hydrochlorothiazide. Supportive measures were discussed with the patient and they voiced understanding discharge instructions and agrees to treatment plan. Return precautions reviewed Differential Diagnosis Differential Diagnosis: Hypertension, congestive heart failure, bilateral lower extremity edema, Vital Signs Vital Signs: Vital Signs Temperature 36.4 C L 03/12/25 15:42 Pulse Rate 59 L 03/12/25 15:42 Respiratory Rate 18 03/12/25 15:42 Blood Pressure 173/61 H 03/12/25 15:42 Pulse Oximetry 99 03/12/25 15:42 Oxygen Delivery Room Air 03/12/25 15:42 Temperature 36.4 C L 03/12/25 15:42 Pulse Rate 59 L 03/12/25 15:42 Respiratory Rate 18 03/12/25 15:42 Blood Pressure 173/61 H 03/12/25 15:42 Pulse Oximetry 99 03/12/25 15:42 Oxygen Delivery Room Air 03/12/25 15:42 Discharge Plan Discharge Clinical Impression: Essential (primary) hypertension Patient Disposition: Home Condition: Stable Instructions: Antibiotic Form, Hypertension (ED) Additional Instructions: Blood pressure 173/61 and 172/82 in the clinic today Recommend checking your blood pressure 1-2 times this evening and in the morning when you wake up If your blood pressure is still elevated contact your PCP in the morning for further instructions-they may request you start taking your hydrochlorothiazide as you were prior. If your systolic blood pressure is equal to or greater than 180 or you develop headache, dizziness, visual changes, weakness, lethargy, confusion, shortness of breath, or chest pain recommend going to the emergency room for further evaluation Patient Language: Zimbabwean Prescriptions: No Action vitamin B complex Tablet 1 tablet PO DAILY alpha lipoic acid 600 mg capsule 600 mg PO DAILY cholecalciferol (vitamin D3) 50 mcg (2,000 unit) capsule 50 mcg PO DAILY abiraterone 250 mg tablet 1,000 mg PO DAILY Rx Instructions: must be taken on empty stomach, at least 1 hr before or 2 hrs after a meal/food CBD Chewable 1 tablet PO DAILY lisinopril 20 mg tablet 40 mg PO DAILY Qty: 180 2RF Follow-up/Referrals: Lenin Armijo MD [Primary Care Provider, [facility]] Time of Disposition: 15:59 Quality NIHSS Nursing Documentation ED NIHSS nursing documentation: reviewed/agree
== END 2025-03-12 16:03 | disposition home or self-care (01) ==
PROVIDERS: Emergency Provider Nurse Practitioner Family; PCP Family Medicine Adolescent Medicine
DX: I10 Essential (primary) hypertension (principal)
CPT/HCPCS: 99211; G0463

== ENCOUNTER 2025-05-23 10:20 | Emergency (ER) | payer MEDICARE, SELFPAY ==
--- NOTE | 2025-05-23 10:23 | ED.ABDPAIN ---
HPI - Abdominal Pain General Stated Complaint: Stomach Pain Source: patient and RN notes reviewed Mode of arrival: ambulatory Limitations: no limitations History of Present Illness HPI narrative: Patient is an 89-year-old male who presents to the [facility] with complaints of generalized abdominal pain that has been ongoing since Thursday. Patient states that he went out to dinner with his on Thursday and has had abdominal pain ever since. He reports multiple episodes of diarrhea. Denies vomiting but reports nausea. He states that his pain is constant and has been worsening in severity over the past few days. He presents with abdominal tenderness. Denies known fevers. Denies prior abdominal surgeries. Related Data Home Medications ?Medication ?Instructions ?Recorded ?Confirmed ?Last Taken ?Type alpha lipoic acid 600 mg capsule 600 mg PO DAILY 09/04/21 02/23/25 Unknown History cholecalciferol (vitamin D3) 50 50 mcg PO DAILY 09/04/21 02/23/25 Unknown History mcg (2,000 unit) capsule vitamin B complex 1 tablet PO DAILY 09/04/21 02/23/25 Unknown History abiraterone 250 mg tablet 1,000 mg PO DAILY 11/24/23 02/23/25 Unknown History CBD Chewable 1 tablet PO DAILY 09/13/24 02/23/25 Unknown History Allergies Allergy/AdvReac Type Severity Reaction Status Date / Time No Known Allergies Allergy Verified 02/23/25 11:16 Review of Systems Review of Systems: CONSTITUTIONAL: Denies fever, chills, or sweats. EYES: Denies visual changes, redness, or discharge. ENT: Denies otalgia and sore throat CARDIOVASCULAR: Denies chest pain, palpitations, or edema. RESPIRATORY: Denies cough or dyspnea. GASTROINTESTINAL: Reports abdominal pain, nausea, diarrhea. GENITOURINARY: Denies dysuria or hematuria. SKIN: Denies rash or itching. MUSCULOSKELETAL: Denies back pain, joint pain, or myalgia. NEUROLOGIC: Denies headache, numbness, or weakness. Pertinent positives per HPI. [facility] Past Medical History Medical History BMI 31.0-31.9,adult Family History Family History Mother Cerebrovascular accident Father No problems noted. Sibling No problems noted. Other Malignant neoplasm of prostate Social History Social History Smoking status: Never smoker Second hand tobacco smoke exposure: No Alcohol intake: current Drinks per week: 2 Substance use: never Substance use type: does not use Lack of Transportation: No Lack of Food: Never True Current Housing: I Have Housing Concerned About Future Housing: No Difficulty Paying Gas/Electric Bills: No Difficulty Paying for Meds: No Currently Unemployed: No Education: Master's Degree or Higher Difficulty w/ Childcare or Family Care: No Living arrangements: with family Occupation/Education: retired Additional occupation/education comments: [employer] Gender identity (if verbalized by the patient): Male Sexual Orientation (if Verbalized by the Patient): Straight or Heterosexual Spiritual care concerns: No Agree to blood products: Yes Comments At the time of my signature, I reviewed and agree with the nursing past medical, surgical, social, and family history. There is no relevant family history pertinent to the patient complaint. Exam Narrative: GENERAL: This is a well-nourished, well-developed patient, in no apparent distress. HEAD: normocephalic, atraumatic. EYES: Sclera clear/white. Vision is grossly intact. EARS: External ears normal. Hearing grossly intact. NOSE: External nose normal with no obvious nasal discharge, nares without redness, no rhinorrhea. THROAT: Mucous membranes moist. NECK: Neck supple, non-tender without lymphadenopathy, masses or thyromegaly. CARDIOVASCULAR: Regular rate and rhythm without murmurs, gallops, or rubs. RESPIRATORY: Clear to auscultation. Breath sounds equal bilaterally. No wheezes, rales, or rhonchi. GASTROINTESTINAL: Generalized abdominal tenderness. RUQ tenderness. Guarding present. SKIN: warm, intact with no suspicious lesions or rash, good texture and turgor. NEURO: awake, alert, and oriented to person, place and time. There were no obvious focal neurologic abnormalities. Course Course Level of Care: [facility] Care Visit Vital Signs Vital signs: Vital Signs Temperature 98 F 05/23/25 10:33 Pulse Rate 88 05/23/25 10:33 Respiratory Rate 16 05/23/25 10:33 Blood Pressure 150/89 H 05/23/25 10:33 Pulse Oximetry 98 05/23/25 10:33 Oxygen Delivery Room Air 05/23/25 10:33 Temperature 98 F 05/23/25 10:33 Pulse Rate 88 05/23/25 10:33 Respiratory Rate 16 05/23/25 10:33 Blood Pressure 150/89 H 05/23/25 10:33 Pulse Oximetry 98 05/23/25 10:33 Oxygen Delivery Room Air 05/23/25 10:33 Reviewed Transfer Transfered to: [place] Transportation: Other (private vehicle) Transfer rationale: Abdominal pain, RUQ abdominal tenderness Accepting physician: Hortencia Bergeron [facility] MDM Narrative Medical decision making narrative: Patient transferred to [facility] ED for further evaluation and treatment of his generalized abdominal pain. He presents with abdominal tenderness, specifically in the right upper quadrant. He is to go to [place] ED for appropriate testing and treatment. Patient was accepted by LINDSE[facility] Hu. He will be transferred via private vehicle with . Differential Diagnosis Differential Diagnosis: gastroenteritis, diverticulitis, colitis, cholecystitis, appendicitis, pancreatitis Critical Care Time Critical Care Time Critical Care Time: No Discharge Plan Discharge Clinical Impression: Generalized abdominal pain Patient Disposition: Acute Care Hospital Condition: Stable Additional Instructions: Go directly to [place] ED for evaluation. Patient Language: Bulgarian Prescriptions: No Action vitamin B complex Tablet 1 tablet PO DAILY alpha lipoic acid 600 mg capsule 600 mg PO DAILY cholecalciferol (vitamin D3) 50 mcg (2,000 unit) capsule 50 mcg PO DAILY abiraterone 250 mg tablet 1,000 mg PO DAILY Rx Instructions: must be taken on empty stomach, at least 1 hr before or 2 hrs after a meal/food CBD Chewable 1 tablet PO DAILY lisinopril 20 mg tablet 40 mg PO DAILY Qty: 180 2RF Follow-up/Referrals: Lenin Armijo MD [Physician, Family Practice] Time of Disposition: 10:40
[2025-05-23 10:33] VITALS: BP 150/89; PULSE 88; RESP 16; TEMP 36.6; O2SAT 98
== END 2025-05-23 10:41 | disposition short-term general hospital (02) ==
PROVIDERS: Emergency Provider Nurse Practitioner; PCP Family Medicine
DX: R10.84 Generalized abdominal pain (principal)
CPT/HCPCS: 99212; 99213; G0463

== ENCOUNTER 2025-05-23 11:05 | Inpatient (IN) | payer MEDICARE, SELFPAY ==
--- NOTE | ~2025-05-23 | XR_ITS ---
EXAM/PROCEDURE: XR abdomen/kub 1V HISTORY: SMALL BOWEL OBSTRUCTION COMPARISON: Small bowel follow-through from yesterday TECHNIQUE: KUB FINDINGS: Contrast extends to the rectosigmoid region. Some contrast remains in some loops of small bowel. No extravasation of contrast or large amount free air seen. Gastric catheter noted. IMPRESSION: Findings consistent with high-grade partial small bowel obstruction versus severe ileus. Reviewed, dictated and finalized at location A. TEE OF ESTATE IMPRESSION: Findings consistent with high-grade partial small bowel obstruction versus agustina re ileus.
--- NOTE | ~2025-05-23 | XR_ITS ---
EXAMINATION: XR abdomen gastric tube insert, 05/23/2025 16:50 TELEGRAPHIC TYPEWRITER OPERATOR HISTORY: s/p NGT COMPARISON: No comparisons available. Technique: 3 view. Findings: Bowel gas pattern unremarkable. No obstruction. No free air. No abnormal calcifications No acute osseous abnormality. Nasogastric tube terminates in the body of the stomach. Impression: 1. No acute abnormality. Reviewed, dictated and finalized at location P. GRAPHIC TYPEWRITER OPERATOR Impression: 1. No acute abnormality.
--- NOTE | ~2025-05-23 | US_ITS ---
EXAMINATION: US abdomen limited DATE: 05/25/2025 12:04 INDICATION: Liver lesion TECHNIQUE: Multiple grayscale and Doppler ultrasound images of the abdomen were obtained. COMPARISON: CT dated 06/02/2025 FINDINGS: The pancreatic head and body are normal in appearance. The pancreatic tail is not visualized. Liver has normal echogenicity and contour, with a smooth surface. Approximately 1.5 cm subtle hypoechoic lesion in the right hepatic lobe which appears to correspond in size and location to the hypodense/hypoenhancing lesion on prior CT. No intrahepatic biliary duct dilation suspected. Portal venous flow was seen in the hepatopetal, normal direction and has normal Doppler waveform. Calcified shadowing gallstones within the otherwise normal-appearing gallbladder. Sonographic Trivedi sign was reported as negative by the research chemical engineer.Common bile duct measures 3 mm diameter which is normal. Likely age- related mild cortical atrophy of the right kidney which demonstrate normal contour and axis tube with no hydronephrosis. IMPRESSION: 1. Cholelithiasis. 2. Subtle 1.5 cm hypoechoic lesion in the right hepatic lobe which based on prior CT imaging is concerning for metastatic disease. Reviewed, dictated and finalized at location A. PMENT PROCESSOR IMPRESSION: 1. Cholelithiasis. 2. Subtle 1.5 cm hypoechoic lesion in the right hepatic lobe which based on roseanna or CT imaging is concerning for metastatic disease.
--- NOTE | ~2025-05-23 | XR_ITS ---
EXAMINATION: Small bowel follow-through: DATE: 05/24/2025 INDICATION: Evidence of small bowel obstruction at the level of the ileocecal junction on CT examination with suspicion of masslike lesion in the region of the cecum. TECHNIQUE: Radiographic small bowel follow-through after placement of water- soluble contrast through the nasogastric tube into the stomach. Multiple images were obtained up to 5 hours post administration of contrast. COMPARISON: CT abdomen pelvis dated 05/23/2025. FINDINGS: Dilated loops of small bowel are noted, to 3.9 cm in diameter. There is no opacification of the proximal colon after 5 hours post administration of contrast. This is suggestive of high-grade mechanical obstruction at the level of distal small bowel, consistent with the CT findings. IMPRESSION: 1. Evidence of high-grade mechanical small bowel obstruction at the level of distal small bowel with no contrast seen within the colon at 5 hours. Findings are consistent with CT findings noted on 05/23/2025. 2. Delayed small bowel series with KUB tomorrow morning is recommended. Reviewed, dictated and finalized at location T. IST INTERN IMPRESSION: 1. Evidence of high-grade mechanical small bowel obstruction at the level of di stal small bowel with no contrast seen within the colon at 5 hours. Findings ar e consistent with CT findings noted on 05/23/2025. 2. Delayed small bowel series with KUB tomorrow morning is recommended.
--- NOTE | ~2025-05-23 | CT_ITS ---
EXAMINATION:CT diagnostic chest w con DATE: 05/24/2025 10:10 INDICATION: Cecal mass TECHNIQUE: Computed tomography (CT) of the chest was performed without intravenous contrast. The dose-length product (DLP) was 293.56 mGy-cm. COMPARISON: CT of abdomen and pelvis from May 23 FINDINGS: Scattered bibasilar fibrotic/atelectatic appearing changes and benign small calcified granulomas; no suspicious nodule or mass seen in the lung reyna. No bulky mediastinal or hilar lymphadenopathy or masses. Heart size normal with no pericardial effusion. Aorta normal in size. Main pulmonary artery measures 4 cm in diameter. Extensive coronary artery calcifications present. Diffuse degenerative changes in the bones which otherwise appear intact. No acute process seen in the visualized portions of the upper abdomen or extrathoracic soft tissues. Right lobe liver lesions described on recent CT exam again noted. IMPRESSION: 1. No gross evidence of metastatic disease within the chest. Liver lesions noted possibly representing metastatic liver disease. 2. Enlarged main pulmonary artery which could be associated with pulmonary arterial hypertension. 3. Other findings as above. Reviewed, dictated and finalized at location A. MAKER IMPRESSION: 1. No gross evidence of metastatic disease within the chest. Liver lesions note d possibly representing metastatic liver disease. 2. Enlarged main pulmonary artery which could be associated with pulmonary reinaldo rial hypertension. 3. Other findings as above.
--- NOTE | ~2025-05-23 | CT_ITS ---
EXAMINATION: CT abdomen pelvis w con DATE: 05/23/2025 14:48 INDICATION: Lower abdominal pain. Diarrhea. TECHNIQUE: Computed tomography (CT) of the abdomen and pelvis was performed 100 cc Isovue 350 intravenous contrast. Automated exposure control and iterative reconstruction technique were employed. The dose-length product was 875.86 mGy-cm. COMPARISON: CT abdomen and pelvis 11/29/2024 FINDINGS: Lung bases do not show acute findings. No focal lesions of liver and spleen other than granulomatous lesions. Calcified gallstones in the gallbladder. Gallbladder is mildly distended in size without edema. Bile ducts are normal in size. Multiple, dilated loops of small bowel are noted in the upper and mid abdomen. Small bowel loops measure up to 41 mm in diameter. Abnormally appearing cecum is noted in the right lower quadrant with significant irregular bowel wall thickening measuring up to 3 cm in thickness. This is more prominent in appearance from 11/29/2024 and not seen on 12/14/2023. These findings are concerning for malignancy involving the cecum causing small bowel obstruction. Noncystic lesion in the right lobe of the liver 1 cm in diameter suggestive of metastatic disease to the liver not seen on earlier CT examination. No retroperitoneal adenopathy. IMPRESSION: 1. Evidence of mechanical small bowel obstruction with small amount of free fluid in the peritoneal cavity. 2. Significant irregular thickening of the wall of the cecum near the ileocecal junction is quite concerning for malignancy in the cecum causing the small bowel obstruction. 3. Possible 1 cm metastatic lesion to the right lobe of the liver. 4. 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 Reviewed, dictated and finalized at location T. [employer] [employer] IMPRESSION: 1. Evidence of mechanical small bowel obstruction with small amount of free flu id in the peritoneal cavity. 2. Significant irregular thickening of the wall of the cecum near the ileocecal junction is quite concerning for malignancy in the cecum causing the small bow el obstruction. 3. Possible 1 cm metastatic lesion to the right lobe of the liver. 4. Severe calcific atherosclerotic changes at the origin of celiac axis and sig nificant atherosclerotic disease at the origin of superior mesenteric artery.
[2025-05-23 11:10] VITALS: BP 115/68; PULSE 93; RESP 20; TEMP 36.1; O2SAT 100
--- NOTE | 2025-05-23 12:54 | ECG_ITS ---
Test Date: 2025-05-23 13:52:09 Measurements Intervals [place] Rate: 88 P: 11 NM: 148 QRS: 12 QRSD: 93 T: 19 QT: 348 QTc: 421 Interpretive Statements SINUS RHYTHM DELAYED PRECORDIAL R/S TRANSITION LOW QRS VOLTAGE IN PRECORDIAL LEADS BORDERLINE ST-T WAVE ABNORMALITY- INF/LAT LEADS BASELINE ARTIFACT- I, II, AVR, V1, V3 BORDERLINE ECG No previous ECG available for comparison Electronically Signed On 05-23-2025 13:53:49 [employer] by Jim Winn D.O.
--- NOTE | 2025-05-23 13:28 | ED.ABDPAIN ---
HPI - Abdominal Pain General Chief Complaint: Abdominal Pain <Hortencia Bergeron PA-C - Last Filed: 05/23/25 13:32> Stated Complaint: abd pain <Hortencia Bergeron PA-C - Last Filed: 05/23/25 13:32> Time Seen by Provider: 05/23/25 13:28 <Hortencia Bergeron PA-C - Last Filed: 05/23/25 13:32> Focused HPI: Patient is an 89 y/o male who presents to the ED with c/o ABD pain. Patient reports pain began on Thursday morning around 2-3 am. Has been persistent since then. Described as cramping sensation sensation. Worse with eating. Reports nausea, diarrhea. Denies vomiting. Denies fevers. Denies bad food exposure. Denies rectal bleeding, melena. Denies hx of similar pain. Went to an UC today and was referred here for further eval. GENERAL: Well-appearing, well-nourished, and in no acute distress. HEAD: Normocephalic, atraumatic. CHEST: Clear to auscultation. ?No respiratory distress. HEART: Regular rate and rhythm.? ABD: Diffuse tenderness throughout lower abd. No rebound. Normoactive BS NEURO: ?Alert and oriented x3. Patient screened in triage and initial orders placed.? ?Additional care and disposition to be based upon?diagnostic testing and treatment. <Hortencia Bergeron PA-C - Last Filed: 05/23/25 13:32> Source: patient <Hortencia Bergeron PA-C - Last Filed: 05/23/25 13:32> Mode of arrival: ambulatory <Hortencia Bergeron PA-C - Last Filed: 05/23/25 13:32> Limitations: no limitations <Hortecnia Bergeron PA-C - Last Filed: 05/23/25 13:32> History of Present Illness HPI narrative: agree with HPI Pt abd pain has now resolved. <Bernice Chamberlain MD - Last Filed: 05/23/25 18:10> Related Data Home Medications: Home Medications ?Medication ?Instructions ?Recorded ?Confirmed ?Last Taken ?Type alpha lipoic acid 600 mg capsule 600 mg PO DAILY 09/04/21 02/23/25 Unknown History cholecalciferol (vitamin D3) 50 50 mcg PO DAILY 09/04/21 02/23/25 Unknown History mcg (2,000 unit) capsule vitamin B complex 1 tablet PO DAILY 09/04/21 02/23/25 Unknown History abiraterone 250 mg tablet 1,000 mg PO DAILY 11/24/23 02/23/25 Unknown History CBD Chewable 1 tablet PO DAILY 09/13/24 02/23/25 Unknown History <Hortencia Bergeron PA-C - Last Filed: 05/23/25 13:32> Allergies/Adverse Reactions: Allergies Allergy/AdvReac Type Severity Reaction Status Date / Time No Known Allergies Allergy Verified 05/23/25 11:18 <Hortencia Bergeron PA-C - Last Filed: 05/23/25 13:32> Review of Systems Review of Systems: All systems reviewed & are unremarkable except as noted in HPI and below <Bernice Chamberlain MD - Last Filed: 05/23/25 18:10> [facility] Past Medical History Medical History: Medical History BMI 31.0-31.9,adult <Hortencia Bergeron PA-C - Last Filed: 05/23/25 13:32> Family History Family History: Family History Mother Cerebrovascular accident Father No problems noted. Sibling No problems noted. Other Malignant neoplasm of prostate <Hortencia Bergeron PA-C - Last Filed: 05/23/25 13:32> Social History Social History: Social History Smoking status: Never smoker Second hand tobacco smoke exposure: No Alcohol intake: current Drinks per week: 2 Substance use: never Substance use type: does not use Lack of Transportation: No Lack of Food: Never True Current Housing: I Have Housing Concerned About Future Housing: No Difficulty Paying Gas/Electric Bills: No Difficulty Paying for Meds: No Currently Unemployed: No Education: Master's Degree or Higher Difficulty w/ Childcare or Family Care: No Living arrangements: with family Occupation/Education: retired 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 HEAD: Normal with no signs of head trauma. EYES: EOMI, conjunctiva normal ENT: Hearing grossly intact LUNGS: Nonlabored breathing. HEART: Regular rate and rhythm ABD: Soft, nontender to palpation EXT: Normal range of motion SKIN: No rashes or lesions. NEURO: Alert. No gross focal sensory or strength deficits. PSYCH: Normal affect <Bernice Chamberlain MD - Last Filed: 05/23/25 18:10> Course Vital Signs Vital signs: Vital Signs Temperature 97.0 F L 05/23/25 11:10 Pulse Rate 93 05/23/25 11:10 Respiratory Rate 20 05/23/25 11:10 Blood Pressure 115/68 05/23/25 11:10 Pulse Oximetry 100 05/23/25 11:10 Oxygen Delivery Room Air 05/23/25 11:10 Temperature 97.0 F L 05/23/25 11:10 Pulse Rate 83 05/23/25 16:11 Respiratory Rate 12 05/23/25 16:11 Blood Pressure 131/81 05/23/25 16:11 Pulse Oximetry 98 05/23/25 16:11 Oxygen Delivery Room Air 05/23/25 13:44 <Hortencia Bergeron PA-C - Last Filed: 05/23/25 13:32> Vital Signs Temperature 97.0 F L 05/23/25 11:10 Pulse Rate 93 05/23/25 11:10 Respiratory Rate 20 05/23/25 11:10 Blood Pressure 115/68 05/23/25 11:10 Pulse Oximetry 100 05/23/25 11:10 Oxygen Delivery Room Air 05/23/25 11:10 Temperature 97.0 F L 05/23/25 11:10 Pulse Rate 83 05/23/25 16:11 Respiratory Rate 12 05/23/25 16:11 Blood Pressure 131/81 05/23/25 16:11 Pulse Oximetry 98 05/23/25 16:11 Oxygen Delivery Room Air 05/23/25 13:44 <Bernice Chamberlain MD - Last Filed: 05/23/25 18:10> [facility] Narrative Medical decision making narrative: MSE by SYDNEE in triage <Hortencia Bergeron PA-C - Last Filed: 05/23/25 13:32> MSE by SYDNEE in triage Patient presented to the ED with complaint of [abdominal pain and diarrhea x3 days]. Vitals [were within acceptable limits]. Physical exam revealed soft nontender abdomen. [IV access was established by nursing staff. Patient was given protonix, IV fluids]. CBC, BMP, lipase, LFTs, bilirubin and alk phos were obtained. Labs were pertinent for elevated lactic, WBCs, creatinine. [Decision was made to obtain a CT-abdomen to evaluate for acute abdominal process. CT-abdomen per radiology interpretation concerning for SBO from possible malignancy with metastasis to liver.] Discussed the unfortunate findings with patient and family. Discussed with general surgery who requests NG tube and will consult, and GI who are agreeable to consult on patient. Discussed with hospitalist. <Bernice Chamberlain MD - Last Filed: 05/23/25 18:10> Differential Diagnosis Differential Diagnosis: Differential diagnostic considerations for acute abdominal pain include surgical abdominal etiology, ischemic bowel, inflammatory bowel disease, gastritis, PUD, gastroenteritis, cardiac etiology, appendicitis, diverticulitis, bowel obstruction, kidney stone, pyelonephritis, abdominal aortic aneurysm, pancreatitis, constipation, endometriosis. <Bernice Chamberlain MD - Last Filed: 05/23/25 18:10> Lab Data Result diagrams: 05/23/25 13:37 05/23/25 13:37 <Hortencia Bergeron PA-C - Last Filed: 05/23/25 13:32> Labs: Lab Results 05/23/25 05/23/25 05/23/25 Range/Units 13:37 13:55 16:22 WBC 11.8 H (4.5-10.0) K/mm3 RBC 4.48 L (4.6-6.20) M/mm3 Hgb 13.9 L (14.0-18.0) g/dL Hct 40.9 L (42.0-52.0) % MCV 91.3 (80-100) fl MCH 31.0 (26-34) pg MCHC 34.0 (32-36) g/dl RDW 15.4 H (11.5-14.5) % Plt Count 281 (150-375) k/mm3 MPV 9.5 (7.4-10.4) fl Immature Gran % (Auto) 4.4 H (0-0.5) % Neut % (Auto) 73.1 (45.5-73.1) % Lymph % (Auto) 13.3 L (18.3-44.2) % Mower % (Auto) 7.7 (2.6-8.5) % Eos % (Auto) 1.2 (0-4.4) % Baso % (Auto) 0.3 (0.2-1.2) % Lymph # (Auto) 1.57 (0.9-3.2) K/mm3 Mower # (Auto) 0.9 H (0.1-0.6) K/mm3 Eos # (Auto) 0.1 (0-0.3) K/mm3 Baso # (Auto) 0.0 (0.0-0.1) K/mm3 Abs Immat Gran (auto) 0.52 H (0.00-0.031) K/mm3 Absolute Neuts (auto) 8.6 H (1.3-6.7) K/mm3 Absolute Nucleated RBC 0.000 (0.0-0.012) K/mm3 Nucleated RBC % 0.0 (0.0-0.2) % Sodium 136 L (137-145) mmol/L Potassium 3.5 (3.4-5.0) mmol/L Chloride 103 (98-107) mmol/L Carbon Dioxide 26 (22-30) mmol/L Anion Gap 7 (4-12) mmol/L BUN 25 H (9-20) mg/dL Creatinine 1.38 H (0.7-1.3) mg/dL Estim Creat Clear Calc 40 ml/min Estimated GFR 49 L (59 - ) Glucose 121 H (65-110) mg/dL Lactic Acid 2.6 H 1.2 (0.7-2.0) mmol/L Calcium 9.7 (8.4-10.2) mg/dL Total Bilirubin 1.5 H (0.2-1.3) mg/dL AST 26 (17-59) U/L ALT 17 (6-50) U/L Alkaline Phosphatase 93 (38-126) U/L Total Protein 6.9 (6.3-8.2) g/dL Albumin 4.1 (3.5-5.1) g/dL Lipase 42 (23-300) U/L Urine Color Dark yellow (Yellow) Urine Appearance Turbid H (Clear) Urine pH 6.0 (5.0-9.0) Ur Specific [place] 1.022 (1.001-1.035) Urine Protein 2+ H (Negative) mg/dL Urine Glucose (UA) Negative (Negative) mg/dL Urine Ketones Trace H (Negative) mg/dL Ur Blood (Man) Negative (Negative) Urine Nitrate Positive H (Negative) Urine Bilirubin 2+ H (Negative) Urine Urobilinogen 1.0 (<2.0) mg/dL Add Ur Microanalysis Reviewed Leukocyte Esterase Rfl 1+ H (Negative) NIKLOE/UL Urine RBC 6-10 H (0-2) /hpf Urine WBC 6-10 H (0-3) /hpf Ur Squamous Epith Cells Moderate (Few) /hpf Urine Bacteria 1+ H /hpf Urine Casts >20 Granular Casts 1-2 H (None) /lpf Urine Mucus Present /lpf <Hortencia Bergeron PA-C - Last Filed: 05/23/25 13:32> Lab Results 05/23/25 05/23/25 05/23/25 Range/Units 13:37 13:55 16:22 WBC 11.8 H (4.5-10.0) K/mm3 RBC 4.48 L (4.6-6.20) M/mm3 Hgb 13.9 L (14.0-18.0) g/dL Hct 40.9 L (42.0-52.0) % MCV 91.3 (80-100) fl MCH 31.0 (26-34) pg MCHC 34.0 (32-36) g/dl RDW 15.4 H (11.5-14.5) % Plt Count 281 (150-375) k/mm3 MPV 9.5 (7.4-10.4) fl Immature Gran % (Auto) 4.4 H (0-0.5) % Neut % (Auto) 73.1 (45.5-73.1) % Lymph % (Auto) 13.3 L (18.3-44.2) % Mower % (Auto) 7.7 (2.6-8.5) % Eos % (Auto) 1.2 (0-4.4) % Baso % (Auto) 0.3 (0.2-1.2) % Lymph # (Auto) 1.57 (0.9-3.2) K/mm3 Mower # (Auto) 0.9 H (0.1-0.6) K/mm3 Eos # (Auto) 0.1 (0-0.3) K/mm3 Baso # (Auto) 0.0 (0.0-0.1) K/mm3 Abs Immat Gran (auto) 0.52 H (0.00-0.031) K/mm3 Absolute Neuts (auto) 8.6 H (1.3-6.7) K/mm3 Absolute Nucleated RBC 0.000 (0.0-0.012) K/mm3 Nucleated RBC % 0.0 (0.0-0.2) % Sodium 136 L (137-145) mmol/L Potassium 3.5 (3.4-5.0) mmol/L Chloride 103 (98-107) mmol/L Carbon Dioxide 26 (22-30) mmol/L Anion Gap 7 (4-12) mmol/L BUN 25 H (9-20) mg/dL Creatinine 1.38 H (0.7-1.3) mg/dL Estim Creat Clear Calc 40 ml/min Estimated GFR 49 L (59 - ) Glucose 121 H (65-110) mg/dL Lactic Acid 2.6 H 1.2 (0.7-2.0) mmol/L Calcium 9.7 (8.4-10.2) mg/dL Total Bilirubin 1.5 H (0.2-1.3) mg/dL AST 26 (17-59) U/L ALT 17 (6-50) U/L Alkaline Phosphatase 93 (38-126) U/L Total Protein 6.9 (6.3-8.2) g/dL Albumin 4.1 (3.5-5.1) g/dL Lipase 42 (23-300) U/L Urine Color Dark yellow (Yellow) Urine Appearance Turbid H (Clear) Urine pH 6.0 (5.0-9.0) Ur Specific [place] 1.022 (1.001-1.035) Urine Protein 2+ H (Negative) mg/dL Urine Glucose (UA) Negative (Negative) mg/dL Urine Ketones Trace H (Negative) mg/dL Ur Blood (Man) Negative (Negative) Urine Nitrate Positive H (Negative) Urine Bilirubin 2+ H (Negative) Urine Urobilinogen 1.0 (<2.0) mg/dL Add Ur Microanalysis Reviewed Leukocyte Esterase Rfl 1+ H (Negative) NIKOLE/UL Urine RBC 6-10 H (0-2) /hpf Urine WBC 6-10 H (0-3) /hpf Ur Squamous Epith Cells Moderate (Few) /hpf Urine Bacteria 1+ H /hpf Urine Casts >20 Granular Casts 1-2 H (None) /lpf Urine Mucus Present /lpf <Bernice Chamberlain MD - Last Filed: 05/23/25 18:10> Imaging Data Radiologist's impression: ITS Impressions Abdomen/Pelvis CT 05/23/25 15:01 IMPRESSION: 1. Evidence of mechanical small bowel obstruction with small amount of free fluid in the peritoneal cavity. 2. Significant irregular thickening of the wall of the cecum near the ileocecal junction is quite concerning for malignancy in the cecum causing the small bowel obstruction. 3. Possible 1 cm metastatic lesion to the right lobe of the liver. 4. 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 Abdomen X-Ray 05/23/25 17:04 Impression: 1. No acute abnormality. <Hortencia Bergeron PA-C - Last Filed: 05/23/25 13:32> ITS Impressions Abdomen/Pelvis CT 05/23/25 15:01 IMPRESSION: 1. Evidence of mechanical small bowel obstruction with small amount of free fluid in the peritoneal cavity. 2. Significant irregular thickening of the wall of the cecum near the ileocecal junction is quite concerning for malignancy in the cecum causing the small bowel obstruction. 3. Possible 1 cm metastatic lesion to the right lobe of the liver. 4. 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 Abdomen X-Ray 05/23/25 17:04 Impression: 1. No acute abnormality. <Bernice Chamberlain MD - Last Filed: 05/23/25 18:10> Discharge Plan Discharge Clinical Impression: SBO (small bowel obstruction) <Hortencia Bergeron PA-C - Last Filed: 05/23/25 13:32> Patient Disposition: Still a Patient <Hortencia Bergeron PA-C - Last Filed: 05/23/25 13:32> Condition: Serious <Hortencia Bergeron PA-C - Last Filed: 05/23/25 13:32>
[2025-05-23 13:44] VITALS: BP 138/95; PULSE 89; RESP 14; O2SAT 97
[2025-05-23 14:13] LABS: Hematocrit 40.9 % (42.0-52.0); Hemoglobin 13.9 g/dL (14.0-18.0); Immature Granulocyte Percent A 4.4 % (0-0.5); Lymphocytes Absolute Auto 1.57 K/mm3 (0.9-3.2); Mean Corpuscular HGB Conc 34.0 g/dl (32-36); Mean Corpuscular Hemoglobin 31.0 pg (26-34); Mean Corpuscular Volume 91.3 fl (80-100); Nucleated Red Blood Cells Absolute Auto 0.000 K/mm3 (0.0-0.012); Nucleated Red Blood Cells Perc 0.0 % (0.0-0.2); Platelet Count Result 281 k/mm3 (150-375); Red Blood Count 4.48 M/mm3 (4.6-6.20); White Blood Count 11.8 K/mm3 (4.5-10.0)
[2025-05-23 14:26] LABS: Alanine Aminotransferase 17 U/L (6-50); Albumin Level 4.1 g/dL (3.5-5.1); Alkaline Phosphatase 93 U/L (38-126); Anion Gap 7 mmol/L (4-12); Aspartate Amino Transferase 26 U/L (17-59); Bilirubin,Total 1.5 mg/dL (0.2-1.3); Blood Urea Nitrogen 25 mg/dL (9-20); Calcium 9.7 mg/dL (8.4-10.2); Carbon Dioxide 26 mmol/L (22-30); Chloride 103 mmol/L (98-107); Estimated CRCL calculation 40 ml/min; Estimated Glomerular Filt Rate 49; Glucose 121 mg/dL (65-110); Lipase 42 U/L (23-300); Potassium 3.5 mmol/L (3.4-5.0); Sodium 136 mmol/L (137-145); Total Protein 6.9 g/dL (6.3-8.2)
[2025-05-23] MEDS: PANTOPRAZOLE SODIUM IV 40 MG VIAL IV PUSH (14:28)
[2025-05-23] MEDS: LACTATED RINGERS 1,000 ML 999 ML IV CONT (14:28)
[2025-05-23 14:51] LABS: Add Urine Microscopic? YES; Appearance Urine Turbid (Clear); Glucose Urine UA Negative (Negative); Leukocyte Esterase Ur 1+ LEU/UL (Negative); Need Manual Microscopic Reviewed; Nitrate Urine Positive (Negative); Non Pathogenic Casts >20; Specific Grav Ur 1.022 (1.001-1.035)
[2025-05-23 16:11] VITALS: BP 131/81; PULSE 83; RESP 12; O2SAT 98
[2025-05-23] MEDS: ONDANSETRON INJ 4 MG/2 ML VIAL IV PUSH (16:59)
[2025-05-23] MEDS: cefTRIAXone 1 GM in SODIUM CHLORIDE 0.9% IV 50 ML 100 ML IVPB (17:22)
--- OUTSIDE RECORDS SUMMARY | 2025-05-23 17:57 | XMS_ITS ---
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
--- OUTSIDE RECORDS SUMMARY | 2025-05-23 17:57 | XMS_ITS | Clinical Summary ---
Author Organization [facility] Address [address] [place] [address] Care Team Providers Care Child Support Officer Name Role Phone Luis Ramos MD Unavailable Lenin Armijo MD Primary Care Provider [phone]- [phone] Josh Yoo MD Unavailable Allergies No known active allergies Medications THIOCTIC [...] metastatic to intraabdominal lym ph node 02/19/2024 Social History Tobacco Use Types Packs/Day [...] cm (5' 11) 07/13/2023 10: 09 AM MANAGER GAS Body Mass Index 32.25 07/13/2023 10:09 AM MANAGER GAS Plan of Treatment Health Maintenance Due Date Last Done Comments DTaP, Tdap and Td Vaccines (1 - Tdap) 1954 Pneumococcal Vaccine: 50+ Years (1 of 1 - PCV) 1987 Zoster Vaccines (1 of 2) 1987 Annual Medicare Wellness Visit 2002 RSV Immunization or 60+ Years (1 - 1-dose 75+ series) 2012 COVID-19 Vaccine ( - season) 2025 08/04/2022, 03/14/2021, 08/28/2020, Additional history exists Influenza Adult (#1) 2025 Hepatitis A Vaccines Aged Out No long er eligible based on patient's age to complete this topic Meningococcal B Vaccine Aged Out No l onger eligible based on patient's age to complete this topic Meningococcal Vaccine Aged Out No marry felicity eligible based on patient's age to complete this topic RSV Immunizations Under 20 Months Aged Out No longer eligible based on patient's age to complete [place] [address] AETNA MEDICARE Care Teams Child Support Officer Relationship Specialty Start Date End Date Lenin Armijo MD [address] [address] PCP - General FAMILY PRACTICE 11/19/23 Luis Ramos MD [address] [address] Consulting Physician RADIATION ONCOLOGY 01/05/23 [place] [address] [place] [address] Medical Oncologist HEMATOLOGY/ONCOLOGY 11/19/23
--- OUTSIDE RECORDS SUMMARY | 2025-05-23 17:57 | XMS_ITS | Clinical Summary ---
Author Organization [facility] Address [address], [facility] [address] [place] [address] Phone Care Team Providers Care Dry Wall Installer Name Role Phone Lenin Armijo MD Primary Care Provider + Josh Yoo MD Unavailable [phone] Allergies No known active allergies Medications lisinopril [...] st Contact Info) Description 07/27/2025 10:45 AM AIR TRAFFIC INSTRUCTOR Lab [facility] [address] [address] Nurse, [facility] 08/03/2025 10:45 AM AIR TRAFFIC INSTRUCTOR Office Visit [facility] [address] [address] [address] Josh Yoo MD [address] [place] [phone] Health Maintenance Due Date Last Done Comments Hepatitis C Virus (HCV) Screening 1935 Zoster Immunization (1 of 2) 1956 Respiratory Syncytial Virus (RSV) Immunization (Adult) (1 - 1-dose 75+ series) 2012 Medicare Initial AWV [id number] 2023 Influenza Immunization (#1) 02/13/20252 09/2023, 03/05/2023, 03/17/2022, Additional history exists SARS-COV-2 [...] topic Insurance MEDICARE C AETNA Care Teams Dry Wall Installer Relationship Specialty Start Date End Date Lenin Armijo MD PCP - General Family Medicine 12/18/22 Josh Yoo MD [address] [place] [address] Consulting Physician Oncology 11/24/23
--- OUTSIDE RECORDS SUMMARY | 2025-05-23 17:57 | XMS_ITS | Encounter Summary ---
Author Organization [facility] Address [address] [facility] [place] [address] Care Team Providers Care Trolley Worker Name Role Phone Unavailable Primary Care Provider Unavailabl e Encounter Details Date Type Department Care Team (Late st Contact Info) Description 06/02/2024 Lab Requisition [facility] - DermPath Lab [address] [facility] [place] [id number] [address]ad [address] MD [facility] [address] [place] [phone] Squamous cell carcinoma of skin of scalp and neck Social History Tobacco Use Types Packs/Day Years Used Date Smoking Tobacco: Never Assessed Sex and Gender Information Value Date Recorded Sex Assigned at Not on file Legal Sex Male 1:11 PM BROILER MANAGER Gender Identity Not on file Sexual Orientation Not on file documented as of this encounter Plan of Treatment Not on file documented as of this encounter Procedures Procedure Name Priority Date/Time Associated Diagnosis Comments DERMATOPATHOLOGY Routine 06/02/2024 3:33 AM BROILER MANAGER Squamous cell carcinoma of skin of scalp and neck documented in this encounter Results * DERMATOPATHOLOGY (06/02/2024 3:33 AM BROILER MANAGER) Case Report Dermatopathology Report Case: [id number] Authorizing Provider: Prasad Lane MD Collected: 06/02/2024 03:33 AM Ordering Location: [facility] - Received: 06/03/2024 12:27 PM DermPath Lab Pathologist: Jw Allred MD Specimen: Skin, right frontal scalp 1:25 PM BROILER MANAGER DERMATOPATHOLOGY LABORATORY Final Diagnosis Specimen A. SKIN, right frontal scalp: SQUAMOUS CELL CARCINOMA, MODERATELY DIFFERENTIATED AND INFILTRATIVE (C44.42) NOT PRESENT AT MARGIN DERMAL SCAR (L90.5) (see microscopic description and comment) 1:25 PM [facility] DERMATOPATHOLOGY LABORATORY at [address] BROILER MANAGER Clinical History SCC - check margins 1:25 PM [facility] DERMATOPATHOLOGY LABORATORY Gross Description Specimen A: Received is one formalin filled container labeled with the patient's name and designated right frontal scalp. The specimen consists of a non-oriented ellipse of skin measuring [id number] mm. The epidermal surface is unremarkable. The [...] by the Dermatopathology Laboratory at [facility], directed by Dr. Maurice Allred. These tests need not be, and therefore are not, approved by the [place] Food and Drug Administration. The tests are used for clinical purposes. Billing Codes Specimen Charges Stain Charges 83318 1 4 1:25 PM [facility] DERMATOPATHOLOGY LABORATORY Embedded Images 1:25 PM [facility] DERMATOPATHOLOGY LABORATORY Pathology/Cytolo gy TISSUE SPECIMEN FROM SKIN / Unknown 06/02/2024 3:33 AM BROILER MANAGER 06/03/2024 12:27 PM [facility] Prasad Lane MD LAB - PATHOLOGY/CYTOLOGY NAYLA CEJA Final Result DERMATOPATHOLOGY LABORATORY [facility] - Department of Dermatology [address] [phone] documented in this encounter Visit Diagnoses Diagnosis 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
--- OUTSIDE RECORDS SUMMARY | 2025-05-23 17:57 | XMS_ITS | Clinical Summary ---
Author Organization [facility] Address [address] [facility] [place] [address] Care Team Providers Care Quiller Tender Name Role Phone Unavailable Primary Care Provider Unavailabl e Source Comments [facility],non-owned Affiliates and Associated Physician Practices is amultiple site organization consisting of ambulatory clinics and hospital sitesin [place], [place], [place] and [place]. This disclosure is being madepursuant to the Care Everywhere program and may not contain all information available regarding this patient. Last updated 18.[facility] Social History Tobacco Use Types Packs/Day Years Used Date Smoking Tobacco: Never Assessed Sex and Gender Information Value Date Recorded Sex Assigned at Not on file Legal Sex Male 1:11 PM ROVING DEPARTMENT END FINDER Gender Identity Not on file Sexual Orientation [...] CALENDAR YEAR 2024 COVID-19 VACCINE ( - 2024-2 6 season) 2025 INFLUENZA VACCINE (#1) 2025 HEPATITIS [...] to complete this topic Insurance ELAINE ISAAC [id number] AETNA MEDICARE ADV
--- OUTSIDE RECORDS SUMMARY | 2025-05-23 17:57 | XMS_ITS | Encounter Summary ---
Author Organization [facility] Address [address] [place] [address] Care Team Providers Care Cigarette Packing Machine Operator Name Role Phone Unavailable Primary Care Provider Unavailabl e Encounter Details Date Type Department Care Team (Late st Contact Info) Description 08/18/2023 Lab Requisition [facility] - DermPath Lab [address] [facility], [place] [phone] Pr[address]ad [address] MD [facility] DERMATOLOGY [address] [place] [phone] Neoplasm of uncertain behavior of skin Social History Tobacco Use Types Packs/Day Years Used Date Smoking Tobacco: Never Assessed Sex and Gender Information Value Date Recorded Sex Assigned at Not on file Legal Sex Male 1:11 PM 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 Gender Identity Not on file Sexual Orientation Not on file documented as of this encounter Plan of Treatment Not on file documented as of this encounter Procedures Procedure Name Priority Date/Time Associated Diagnosis Comments DERMATOPATHOLOGY Routine 08/18/2023 12:0 0 AM 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 Neoplasm of uncertain behavior of skin documented in this encounter Results * DERMATOPATHOLOGY (08/18/2023 12:00 AM 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) Case Report Dermatopathology Report Case: [id number] Authorizing Provider: Prasad Lane MD Collected: 08/18/2023 12:00 AM Ordering Location: [facility] - Received: 08/19/2023 02:02 PM DermPath Lab Pathologist: Preethi Clemons MD Specimens: A) - Skin, left medial wrist B) - Skin, left superior brad of antihelix C) - Skin, left lateral elbow 12:37 PM 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 DERMATOPATHOLOGY LABORATORY Final Diagnosis Specimen A. SKIN, left medial wrist: HYPERPLASTIC (HYPERTROPHIC) ACTINIC KERATOSIS (L57.0) Specimen B. SKIN, left superior brad of antihelix: BASAL CELL CARCINOMA, NODULAR TYPE (C44.219) Specimen C. 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 The specimen consists of a shave biopsy measuring 46x49x4 mm. Jar 0+. Specimen B: Received is [...] measuring 10x9x2 mm. Jar 0. 12:37 PM [facility] DERMATOPATHOLOGY LABORATORY Microscopic Description Specimen A. [...] different levels, and dyskeratotic cells. 12:37 PM [facility] DERMATOPATHOLOGY LABORATORY Disclaimer An external and internal positive and negative controls are appropriate for the histochemical, immunohistochemical and immunofluorescence stain(s) in this case (if any), except where stated explicitly. The performance characteristics of the stain(s) cited in this report were developed and its performance characteristic determined by the Dermatopathology Laboratory at [facility], directed by Dr. Maurice Allred. These tests need not be, and therefore are not, approved by the [place] Food and Drug Administration. The tests are used for clinical purposes. Billing Codes Specimen Charges Stain Charges 27375 92644 75912 1 1 1 4 12:37 PM 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 DERMATOPATHOLOGY LABORATORY Embedded Images 12:37 PM 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 DERMATOPATHOLOGY LABORATORY Pathology/Cytology TISSUE SPECIMEN FROM SKIN / Unknown 08/18/2023 08/19/2023 2:02 PM 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 Miscellaneous samples (specimen) TISSUE SPECIMEN FROM SKIN / Unknown 08/18/2023 08/19/2023 2:05 PM 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 Miscellaneous samples (specimen) TISSUE SPECIMEN FROM SKIN / Unknown 08/18/2023 08/19/2023 2:05 PM 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 Prasad Lane MD LAB - PATHOLOGY/CYTOLOGY ORDE MARCIAL Final Result DERMATOPATHOLOGY LABORATORY [facility] - Department of Dermatology [facility] [address] [place] [address], [address] [phone] documented in this encounter Visit Diagnoses Diagnosis Neoplasm of uncertain behavior of skin documented in this encounter
--- OUTSIDE RECORDS SUMMARY | 2025-05-23 17:58 | XMS_ITS | Encounter Summary ---
Author Organization [facility] Address [address] [place] [address] Care Team Providers Care Judge Name Role Phone Unavailable Primary Care Provider Unavailabl e Encounter Details Date Type Department Care Team (Late st Contact Info) Description 05/09/2024 Lab Requisition [facility] - DermPath Lab [address] [facility] [place] [phone] Bianka Luther MD [address] [place] [address] [place] [phone] Social History Tobacco Use Types Packs/Day Years Used Date Smoking Tobacco: Never Assessed Sex and Gender Information Value Date Recorded Sex Assigned at Not on file Legal Sex Male 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 Gender Identity Not on file Sexual Orientation Not on file documented as of this encounter Plan of Treatment Not on file documented as of this encounter Procedures Procedure Name Priority Date/Time Associated Diagnosis Comments DERMATOPATHOLOGY Routine 05/06/2024 3:33 AM PEDIATRIC SURGEON documented in this encounter Results * DERMATOPATHOLOGY (05/06/2024 3:33 AM PEDIATRIC SURGEON) Case Report Dermatopathology Report Case: [id number] Authorizing Provider: Bianka Luther MD Collected: 05/06/2024 03:33 AM Ordering Location: [facility] - Received: 05/09/2024 12:11 PM DermPath Lab Pathologist: Jw Allred MD Specimen: Skin, right frontal scalp 4 3:31 PM PEDIATRIC SURGEON DERMATOPATHOLOGY LABORATORY Final Diagnosis Specimen A. SKIN, right frontal scalp: SQUAMOUS CELL CARCINOMA, ACANTHOLYTIC TYPE (C44.42) 4 3:31 PM PEDIATRIC SURGEON DERMATOPATHOLOGY LABORATORY at 1531 PEDIATRIC SURGEON Clinical History SCC 4 3:31 PM [facility] [...] characteristic determined by the Dermatopathology Laboratory at [facility], directed by Dr. Maurice Allred. These tests need not be, and therefore are not, approved by the [place] Food and Drug Administration. The tests are used for clinical purposes. Billing Codes Specimen Charges Stain Charges 71430 1 4 3:31 PM [facility]MAT[facility] Embedded Images 3:31 PM [facility] Pathology/Cytolo gy TISSUE SPECIMEN FROM SKIN / Unknown 05/06/2024 3:33 AM PEDIATRIC SURGEON 05/09/2024 12:11 PM [facility] Bianka Luther MD LAB - PATHOLOGY/CYTOLOGY ORDERAB LES Final Result DERMATOPATHOLOGY LABORATORY [facility] - Department of Dermatology [address], [address] [place] [address], [facility] [phone] documented in this encounter Visit Diagnoses Not on filedocumented in this encounter
[2025-05-23 18:14] VITALS: BP 104/73; PULSE 87; RESP 17; O2SAT 98
--- NOTE | 2025-05-23 18:43 | ADMGEN ---
This patient, Abdoul Allen, was admitted to Medical Room 345-01. Patient/family oriented to hospital policies and general routines including ID bracelet, bed and alarms, visiting hours, pain management, procedures, bathroom and other care routines, personal items, smoking policy, room service/diet, and visiting hours. Information on how to activate the Rapid Response Team has been discussed. Patient/Family are encouraged to report perceived risks to care and to ask questions if they do not understand what they are told or what they should do.
[2025-05-23] MEDS: LACTATED RINGERS 1,000 ML 125 ML IV CONT (19:03)
[2025-05-23 21:50] VITALS: BP 132/82; PULSE 72; RESP 16; TEMP 36.9; O2SAT 100
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
[2025-05-24] MEDS: LACTATED RINGERS 1,000 ML 100 ML IV CONT (02:49)
[2025-05-24 04:30] VITALS: BP 114/64; PULSE 83; RESP 18; TEMP 36.4; O2SAT 95
[2025-05-24 06:32] LABS: Hematocrit 30.8 % (42.0-52.0); Hemoglobin 10.4 g/dL (14.0-18.0); Mean Corpuscular HGB Conc 33.8 g/dl (32-36); Mean Corpuscular Hemoglobin 30.6 pg (26-34); Mean Corpuscular Volume 90.6 fl (80-100); Platelet Count Result 175 k/mm3 (150-375); Red Blood Count 3.40 M/mm3 (4.6-6.20); White Blood Count 6.7 K/mm3 (4.5-10.0)
[2025-05-24 06:43] LABS: Anion Gap 5 mmol/L (4-12); Blood Urea Nitrogen 23 mg/dL (9-20); Calcium 8.7 mg/dL (8.4-10.2); Carbon Dioxide 23 mmol/L (22-30); Chloride 106 mmol/L (98-107); Estimated CRCL calculation 50 ml/min; Estimated Glomerular Filt Rate > 60; Glucose 94 mg/dL (65-110); Potassium 3.4 mmol/L (3.4-5.0); Sodium 134 mmol/L (137-145)
[2025-05-24 06:44] LABS: INR 1.1; Prothrombin Time 14.2 Seconds (11.1-14.7)
[2025-05-24 06:45] LABS: Partial Thromboplastin Time 28.7 Seconds (22.3-36.8)
[2025-05-24 08:36] LABS: Carcinoembryonic Antigen 0.9 ng/mL (0.0-3.0)
--- NOTE | 2025-05-24 09:05 | P.PNIM_ITS ---
Assessment and Plan Assessment and Plan (1) SBO (small bowel obstruction): Code(s): K56.609 - Unspecified intestinal obstruction, unspecified as to partial versus complete obstruction Status: Acute Assessment and Plan: - admit CT A/P with evidence of mechanical SBO with small amount of free fluid, irregular thickening of the wall of the cecum near the ileocecal junction is quite concerning for malignancy in the cecum causing the small bowel obstruction. Possible 1 cm metastatic lesion to the right lobe of the liver. 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 - patient has never had a colonoscopy. Reports history of negative Cologuard. -general surgery consulted - recommend to continue NG with consideration for removal tomorrow and SBFT - GI consulted - planning for colonoscopy once bowel obstruction resolved - will consult oncology, appreciate recs (2) Abnormal urinalysis: Code(s): R82.90 - Unspecified abnormal findings in urine Status: Acute Assessment and Plan: - UA with positive nitrates, 1+ LE, 6-10 WBC - patient denies urinary symptoms - hold off on antibiotics (3) Chronic kidney disease, stage 3a: Code(s): N18.31 - Chronic kidney disease, stage 3a Status: Acute Assessment and Plan: - Cr 1.38 on admission, improved to 1.11 today - near baseline - avoid nephrotoxins (4) Acute dehydration: Code(s): E86.0 - Dehydration Status: Acute Assessment and Plan: - continue IV fluids (5) Essential (primary) hypertension: Code(s): I10 - Essential (primary) hypertension Status: Acute (6) Malignant neoplasm of prostate: Code(s): C61 - Malignant neoplasm of prostate Status: Acute Assessment and Plan: - s/p radiation - home abiraterone on hold due to NPO status, resume when able Plan Code status: full code DVT prophylaxis: SCDs Dispo: TBD pending clinical course Medical Record Review I have reviewed the following patient records and this information was taken into consideration when formulating the assessment and plan.: previous labs Consultations Consultations: I have discussed the care of this pt with the consulting providers. (discussed with general surgery, JAGJIT Meredith) Subjective Date/time seen: 05/24/25 09:05 Interval history: Patient seen and examined up in chair. Still with NG in place. Patient had formed bowel movement this morning. Abdominal pain significantly improved. Denies nausea. Discussed findings on CT scans and next steps, patient and family at bedside agreeable. Review of Systems Review of Systems: All systems reviewed & are unremarkable except as noted in HPI and below Exam Narrative: General: NAD Eyes: EOMI ENT: neck supple Cardiovascular: Regular rate and rhythm Respiratory: Clear to auscultation, respirations even and unlabored on RA Gastrointestinal: Soft, mild distention, nontender, NG in place with minimal output, bowel sounds active Genitourinary: no suprapubic tenderness Musculoskeletal: No edema Skin: warm, dry Neuro: Alert. Psych: Mood appropriate Objective Data Vital Signs Vital Signs: Vital Signs - 24 hr 05/23/25 11:10 05/23/25 13:44 05/23/25 16:11 Temperature 97.0 F L Pulse Rate 93 89 83 Respiratory Rate 20 14 12 Blood Pressure 115/68 138/95 H 131/81 Pulse Oximetry 100 97 98 Oxygen Delivery Room Air Room Air 05/23/25 18:14 05/23/25 20:00 05/23/25 21:50 Temperature 98.4 F Pulse Rate 87 72 Respiratory Rate 17 16 Blood Pressure 104/73 132/82 Pulse Oximetry 98 100 Oxygen Delivery Room Air 05/24/25 04:30 Temperature 97.5 F L Pulse Rate 83 Respiratory Rate 18 Blood Pressure 114/64 Pulse Oximetry 95 Oxygen Delivery Intake/Output Intake/Output: Intake & Output 05/21/25 05/22/25 05/23/25 05/24/25 23:59 23:59 23:59 23:59 Intake Total 1050 1050 Output Total 350 Balance 1050 700 Meds/Results Medications: Active Medications Generic Name Dose Route Start Last Admin Trade Name Freq PRN Reason Stop Dose Admin Artificial Tears 1 drop 05/24/25 01:53 Artificial Tears Ophth Soln 15 Ml Bottle EACH EYE QID PRN Dry Eye(s) Lactated Ringer's 1,000 mls @ 100 mls/hr 05/23/25 16:45 05/24/25 02:49 Lr - Lactated Ringers Iv IV CONT 100 mls/hr .Q10H BRE Administration Morphine Sulfate 2 mg 05/23/25 23:46 Morphine Sulfate (*Crx) 4 Mg/Ml Inj IV PUSH Q4H PRN Pain Rated 7-10 Ondansetron HCl 4 mg 05/23/25 23:46 Ondansetron Inj 4 Mg/2 Ml Vial IV PUSH Q4H PRN Nausea And Vomiting Radiology Results: ITS Impressions Abdomen/Pelvis CT 05/23/25 15:01 IMPRESSION: 1. Evidence of mechanical small bowel obstruction with small amount of free fluid in the peritoneal cavity. 2. Significant irregular thickening of the wall of the cecum near the ileocecal junction is quite concerning for malignancy in the cecum causing the small bowel obstruction. 3. Possible 1 cm metastatic lesion to the right lobe of the liver. 4. 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 Abdomen X-Ray 05/23/25 17:04 Impression: 1. No acute abnormality. Labs Labs: Laboratory Results - last 24 hr 05/23/25 05/23/25 05/23/25 13:37 13:55 16:22 WBC 11.8 H RBC 4.48 L Hgb 13.9 L Hct 40.9 L MCV 91.3 MCH 31.0 MCHC 34.0 RDW 15.4 H Plt Count 281 MPV 9.5 Immature Gran % (Auto) 4.4 H Neut % (Auto) 73.1 Lymph % (Auto) 13.3 L Giles % (Auto) 7.7 Eos % (Auto) 1.2 Baso % (Auto) 0.3 Lymph # (Auto) 1.57 Giles # (Auto) 0.9 H Eos # (Auto) 0.1 Baso # (Auto) 0.0 Abs Immat Gran (auto) 0.52 H Absolute Neuts (auto) 8.6 H Absolute Nucleated RBC 0.000 Nucleated RBC % 0.0 PT INR APTT Sodium 136 L Potassium 3.5 Chloride 103 Carbon Dioxide 26 Anion Gap 7 BUN 25 H Creatinine 1.38 H Estim Creat Clear Calc 40 Estimated GFR 49 L Glucose 121 H Lactic Acid 2.6 H 1.2 Calcium 9.7 Total Bilirubin 1.5 H AST 26 ALT 17 Alkaline Phosphatase 93 Total Protein 6.9 Albumin 4.1 Lipase 42 Carcinoembryonic Ag Urine Color Dark yellow Urine Appearance Turbid H Urine pH 6.0 Ur Specific [place] 1.022 Urine Protein 2+ H Urine Glucose (UA) Negative Urine Ketones Trace H Ur Blood (Man) Negative Urine Nitrate Positive H Urine Bilirubin 2+ H Urine Urobilinogen 1.0 Add Ur Microanalysis Reviewed Leukocyte Esterase Rfl 1+ H Urine RBC 6-10 H Urine WBC 6-10 H Ur Squamous Epith Cells Moderate Urine Bacteria 1+ H Urine Casts >20 Granular Casts 1-2 H Urine Mucus Present 05/24/25 06:15 WBC 6.7 RBC 3.40 L Hgb 10.4 L D Hct 30.8 L MCV 90.6 MCH 30.6 MCHC 33.8 RDW 15.3 H Plt Count 175 MPV 9.2 Immature Gran % (Auto) Neut % (Auto) Lymph % (Auto) Giles % (Auto) Eos % (Auto) Baso % (Auto) Lymph # (Auto) Giles # (Auto) Eos # (Auto) Baso # (Auto) Abs Immat Gran (auto) Absolute Neuts (auto) Absolute Nucleated RBC Nucleated RBC % PT 14.2 INR 1.1 APTT 28.7 Sodium 134 L Potassium 3.4 Chloride 106 Carbon Dioxide 23 Anion Gap 5 BUN 23 H Creatinine 1.11 Estim Creat Clear Calc 50 Estimated GFR > 60 Glucose 94 Lactic Acid Calcium 8.7 Total Bilirubin AST ALT Alkaline Phosphatase Total Protein Albumin Lipase Carcinoembryonic Ag 0.9 Urine Color Urine Appearance Urine pH Ur Specific [place] Urine Protein Urine Glucose (UA) Urine Ketones Ur Blood (Man) Urine Nitrate Urine Bilirubin Urine Urobilinogen Add Ur Microanalysis Leukocyte Esterase Rfl Urine RBC Urine WBC Ur Squamous Epith Cells Urine Bacteria Urine Casts Granular Casts Urine Mucus Quality VTE Prophylaxis VTE prophylaxis: mechanical ordered
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
[2025-05-24 20:00] VITALS: PULSE 83; RESP 18; O2SAT 95
[2025-05-24 22:00] VITALS: BP 144/81; PULSE 83; RESP 18; O2SAT 96
[2025-05-25 05:34] LABS: Hematocrit 32.1 % (42.0-52.0); Hemoglobin 10.8 g/dL (14.0-18.0); Immature Granulocyte Percent A 0.2 % (0-0.5); Lymphocytes Absolute Auto 0.55 K/mm3 (0.9-3.2); Mean Corpuscular HGB Conc 33.6 g/dl (32-36); Mean Corpuscular Hemoglobin 31.2 pg (26-34); Mean Corpuscular Volume 92.8 fl (80-100); Nucleated Red Blood Cells Absolute Auto 0.000 K/mm3 (0.0-0.012); Nucleated Red Blood Cells Perc 0.0 % (0.0-0.2); Platelet Count Result 142 k/mm3 (150-375); Red Blood Count 3.46 M/mm3 (4.6-6.20); White Blood Count 4.8 K/mm3 (4.5-10.0)
[2025-05-25 05:44] LABS: INR 1.2; Prothrombin Time 15.1 Seconds (11.1-14.7)
[2025-05-25 05:46] LABS: Partial Thromboplastin Time 33.6 Seconds (22.3-36.8)
[2025-05-25 05:48] LABS: Alanine Aminotransferase 14 U/L (6-50); Albumin Level 3.4 g/dL (3.5-5.1); Alkaline Phosphatase 76 U/L (38-126); Anion Gap 7 mmol/L (4-12); Aspartate Amino Transferase 26 U/L (17-59); Bilirubin,Total 0.9 mg/dL (0.2-1.3); Blood Urea Nitrogen 25 mg/dL (9-20); Calcium 8.9 mg/dL (8.4-10.2); Carbon Dioxide 24 mmol/L (22-30); Chloride 111 mmol/L (98-107); Estimated CRCL calculation 54 ml/min; Estimated Glomerular Filt Rate > 60; Glucose 96 mg/dL (65-110); Magnesium 1.9 mg/dL (1.6-2.3); Potassium 2.9 mmol/L (3.4-5.0); Sodium 142 mmol/L (137-145); Total Protein 5.8 g/dL (6.3-8.2)
[2025-05-25 06:00] VITALS: BP 141/64; PULSE 81; RESP 20; TEMP 36.9; O2SAT 97
--- NOTE | 2025-05-25 08:31 | P.PNIM_ITS ---
Assessment and Plan Assessment and Plan (1) SBO (small bowel obstruction): Code(s): K56.609 - Unspecified intestinal obstruction, unspecified as to partial versus complete obstruction Status: Acute Assessment and Plan: - admit CT A/P with evidence of mechanical SBO with small amount of free fluid, irregular thickening of the wall of the cecum near the ileocecal junction is quite concerning for malignancy in the cecum causing the small bowel obstruction. Possible 1 cm metastatic lesion to the right lobe of the liver. 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 - SBFT 05/24 with evidence of high-grade mechanical small bowel obstruction - KUB 05/25 with persistent small bowel obstruction - patient has never had a colonoscopy. Reports history of negative Cologuard. -general surgery consulted - recommend to continue NG. May need surgical intervention. - GI consulted - planning for colonoscopy once bowel obstruction resolved - will consult oncology, appreciate recs (2) Liver lesion: Code(s): K76.9 - Liver disease, unspecified Status: Acute Assessment and Plan: - CT with liver lesions possibly representing metastatic disease - RUQ US with subtle 1.5 cm hypoechoic lesion in the right hepatic lobe - LFTs WNL - GI following - oncology consulted (3) Abnormal urinalysis: Code(s): R82.90 - Unspecified abnormal findings in urine Status: Acute Assessment and Plan: - UA with positive nitrates, 1+ LE, 6-10 WBC - patient denies urinary symptoms - hold off on antibiotics (4) Chronic kidney disease, stage 3a: Code(s): N18.31 - Chronic kidney disease, stage 3a Status: Acute Assessment and Plan: - Cr 1.01, near baseline - avoid nephrotoxins (5) Malignant neoplasm of prostate: Code(s): C61 - Malignant neoplasm of prostate Status: Acute Assessment and Plan: - s/p radiation - home abiraterone on hold due to NPO status, resume when able (6) Hypokalemia: Code(s): E87.6 - Hypokalemia Status: Acute Assessment and Plan: - K+ 2.9 - ordered IV replacement Plan Code status: full code DVT prophylaxis: SCDs Dispo: TBD pending clinical course Medical Record Review I have reviewed the following patient records and this information was taken into consideration when formulating the assessment and plan.: previous labs Consultations Consultations: I have discussed the care of this pt with the consulting providers. (discussed with general surgery, JAGJIT Meredith) Subjective Date/time seen: 05/25/25 08:31 Interval history: Patient seen and examined at bedside. Patient has had multiple bowel movements overnight and this morning. Denies nausea or abdominal pain. Tolerating ice chips. Discussed with surgery this morning. Patient was initially very insistent about leaving the hospital today however upon reassessment, patient is agreeable to continue in the hospital overnight and await final surgery and GI recs. Review of Systems Review of Systems: All systems reviewed & are unremarkable except as noted in HPI and below Exam Narrative: General: NAD Eyes: EOMI ENT: neck supple Cardiovascular: Regular rate and rhythm Respiratory: Clear to auscultation, respirations even and unlabored on RA Gastrointestinal: Soft, mild distention, nontender, NG in place with minimal output, bowel sounds active Genitourinary: no suprapubic tenderness Musculoskeletal: No edema Skin: warm, dry Neuro: Alert. Psych: Mood appropriate Objective Data Vital Signs Vital Signs: Vital Signs - 24 hr 05/24/25 20:00 05/24/25 22:00 05/25/25 06:00 Temperature 98.5 F Pulse Rate 83 83 81 Respiratory Rate 18 18 20 Blood Pressure 144/81 H 141/64 H Pulse Oximetry 95 96 97 Oxygen Delivery Room Air Intake/Output Intake/Output: Intake & Output 05/22/25 05/23/25 05/24/25 05/25/25 23:59 23:59 23:59 23:59 Intake Total 1050 1250 100 Output Total 350 350 Balance 1050 900 -250 Meds/Results Medications: Active Medications Generic Name Dose Route Start Last Admin Trade Name Freq PRN Reason Stop Dose Admin Artificial Tears 1 drop 05/24/25 01:53 Artificial Tears Ophth Soln 15 Ml Bottle EACH EYE QID PRN Dry Eye(s) Lactated Ringer's 1,000 mls @ 100 mls/hr 05/23/25 16:45 05/24/25 02:49 Lr - Lactated Ringers Iv IV CONT 100 mls/hr .Q10H BRE Administration Morphine Sulfate 2 mg 05/23/25 23:46 Morphine Sulfate (*Crx) 4 Mg/Ml Inj IV PUSH Q4H PRN Pain Rated 7-10 Ondansetron HCl 4 mg 05/23/25 23:46 Ondansetron Inj 4 Mg/2 Ml Vial IV PUSH Q4H PRN Nausea And Vomiting Radiology Results: ITS Impressions Abdomen/Pelvis CT 05/23/25 15:01 IMPRESSION: 1. Evidence of mechanical small bowel obstruction with small amount of free fluid in the peritoneal cavity. 2. Significant irregular thickening of the wall of the cecum near the ileocecal junction is quite concerning for malignancy in the cecum causing the small bowel obstruction. 3. Possible 1 cm metastatic lesion to the right lobe of the liver. 4. 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 Chest CT 05/24/25 10:14 IMPRESSION: 1. No gross evidence of metastatic disease within the chest. Liver lesions noted possibly representing metastatic liver disease. 2. Enlarged main pulmonary artery which could be associated with pulmonary arterial hypertension. 3. Other findings as above. Small Bowel X-Ray 05/24/25 19:29 IMPRESSION: 1. Evidence of high-grade mechanical small bowel obstruction at the level of distal small bowel with no contrast seen within the colon at 5 hours. Findings are consistent with CT findings noted on 05/23/2025. 2. Delayed small bowel series with KUB tomorrow morning is recommended. Abdomen X-Ray 05/25/25 08:14 IMPRESSION: Findings consistent with high-grade partial small bowel obstruction versus severe ileus. Labs Labs: Laboratory Results - last 24 hr 05/24/25 05/25/25 06:15 05:23 WBC 4.8 RBC 3.46 L Hgb 10.8 L Hct 32.1 L MCV 92.8 MCH 31.2 MCHC 33.6 RDW 14.8 H Plt Count 142 L MPV 8.8 Immature Gran % (Auto) 0.2 Neut % (Auto) 78.1 H Lymph % (Auto) 11.5 L [place] % (Auto) 7.7 Eos % (Auto) 2.3 Baso % (Auto) 0.2 Lymph # (Auto) 0.55 L [place] # (Auto) 0.4 Eos # (Auto) 0.1 Baso # (Auto) 0.0 Abs Immat Gran (auto) 0.01 Absolute Neuts (auto) 3.7 Absolute Nucleated RBC 0.000 Nucleated RBC % 0.0 PT 15.1 H INR 1.2 APTT 33.6 Sodium 142 Potassium 2.9 L Chloride 111 H Carbon Dioxide 24 Anion Gap 7 BUN 25 H Creatinine 1.01 Estim Creat Clear Calc 54 Estimated GFR > 60 Glucose 96 Calcium 8.9 Magnesium 1.9 Total Bilirubin 0.9 AST 26 ALT 14 Alkaline Phosphatase 76 Total Protein 5.8 L Albumin 3.4 L Carcinoembryonic Ag 0.9 Quality VTE Prophylaxis VTE prophylaxis: mechanical ordered
[2025-05-25] MEDS: POTASSIUM CHLORIDE INJ 40 MEQ in SODIUM CHLORIDE 0.9% IV 500 ML 130 MEQ IVPB (09:08)
--- NOTE | 2025-05-25 12:54 | P.PNGS_ITS ---
Progress Note: A&P Assessment and Plan (1) SBO (small bowel obstruction): Code(s): K56.609 - Unspecified intestinal obstruction, unspecified as to partial versus complete obstruction Status: Acute Assessment and Plan: * small bowel series was obtained yesterday manage with of high-grade mechanical small bowel obstruction at the level of the distal small bowel with no contrast seen within the colon at 5 hours. I discussed the probability of needing a surgery today, but patient states that he is going home today as he feels he is getting weaker while in the hospital. I did mention hospice care. Patient stated that he was going to think about his options, but likely would not undergo another surgery. General surgery team will speak again with patient and family at bedside later this afternoon. * Continue NG decompression. (2) Malignant neoplasm of prostate: Code(s): C61 - Malignant neoplasm of prostate Status: Acute Assessment and Plan: (3) Essential (primary) hypertension: Code(s): I10 - Essential (primary) hypertension Status: Acute (4) Abnormal urinalysis: Code(s): R82.90 - Unspecified abnormal findings in urine Status: Acute Assessment and Plan: Given dose of ceftriaxone. WBC normalized today. (5) Chronic kidney disease, stage 3a: Code(s): N18.31 - Chronic kidney disease, stage 3a Status: Acute Assessment and Plan: Continue to monitor and renally dose meds. Plan Discussed patient's case and plan of care with Dr. Gracia. Subjective Subjective Date/Time Seen: 05/25/25 12:54 Patient reports: feels better, flatus, bowel movement and afebrile Interval history: SBS yesterday demonstrated high grade obstruction. Patient did have several bowel movements overnight and this morning. Denies any nausea or vomiting. NG with minimal output. Patient states that he is leaving the hospital today. He feels he is only getting weaker by being here. Discussed with him that he willl likely need a surgery. Patient declines, but states he would like more time to think about it. Exam Const: General: comfortable and no acute distress GI: Inspection: non-distended GI Palp: Yes Soft to palpation, No Tenderness to palpation present (GI) and No Guarding due to palpation present (GI) Auscultation: normal bowel sounds Objective Data Vital Signs Vital Signs: Vital Signs - 24 hr 05/24/25 20:00 12/10/25 22:00 05/25/25 06:00 Temperature 98.5 F Pulse Rate 83 83 81 Respiratory Rate 18 18 20 Blood Pressure 144/81 H 141/64 H Pulse Oximetry 95 96 97 Oxygen Delivery Room Air 05/25/25 08:13 Temperature Pulse Rate Respiratory Rate Blood Pressure Pulse Oximetry Oxygen Delivery Room Air Intake/Output Intake/Output: Intake & Output 05/22/25 05/23/25 05/24/25 05/25/25 23:59 23:59 23:59 23:59 Intake Total 1050 1250 100 Output Total 350 350 Balance 1050 900 -250 Meds/Results Medications: Active Medications Generic Name Dose Route Start Last Admin Trade Name Freq PRN Reason Stop Dose Admin Artificial Tears 1 drop 05/24/25 01:53 Artificial Tears Ophth Soln 15 Ml Bottle EACH EYE QID PRN Dry Eye(s) Lactated Ringer's 1,000 mls @ 100 mls/hr 05/23/25 16:45 05/24/25 02:49 Lr - Lactated Ringers Iv IV CONT 100 mls/hr .Q10H BRE Administration Morphine Sulfate 2 mg 05/23/25 23:46 Morphine Sulfate (*Crx) 4 Mg/Ml Inj IV PUSH Q4H PRN Pain Rated 7-10 Ondansetron HCl 4 mg 05/23/25 23:46 Ondansetron Inj 4 Mg/2 Ml Vial IV PUSH Q4H PRN Nausea And Vomiting Radiology Results: ITS Impressions Abdomen/Pelvis CT 05/23/25 15:01 IMPRESSION: 1. Evidence of mechanical small bowel obstruction with small amount of free fluid in the peritoneal cavity. 2. Significant irregular thickening of the wall of the cecum near the ileocecal junction is quite concerning for malignancy in the cecum causing the small bowel obstruction. 3. Possible 1 cm metastatic lesion to the right lobe of the liver. 4. Severe calcific atherosclerotic changes at the origin of celiac axis and sig nificant atherosclerotic disease at the origin of superior mesenteric artery. Chest CT 05/24/25 10:14 IMPRESSION: 1. No gross evidence of metastatic disease within the chest. Liver lesions noted possibly representing metastatic liver disease. 2. Enlarged main pulmonary artery which could be associated with pulmonary arterial hypertension. 3. Other findings as above. Small Bowel X-Ray 05/24/25 19:29 IMPRESSION: 1. Evidence of high-grade mechanical small bowel obstruction at the level of distal small bowel with no contrast seen within the colon at 5 hours. Findings are consistent with CT findings noted on 05/23/2025. 2. Delayed small bowel series with KUB tomorrow morning is recommended. Abdomen X-Ray 05/25/25 08:14 IMPRESSION: Findings consistent with high-grade partial small bowel obstruction versus severe ileus. Abdomen Ultrasound 05/25/25 12:06 IMPRESSION: 1. Cholelithiasis. 2. Subtle 1.5 cm hypoechoic lesion in the right hepatic lobe which based on prior CT imaging is concerning for metastatic disease. Labs Labs: Laboratory Results - last 24 hr 05/25/25 05:23 WBC 4.8 RBC 3.46 L Hgb 10.8 L Hct 32.1 L MCV 92.8 MCH 31.2 MCHC 33.6 RDW 14.8 H Plt Count 142 L MPV 8.8 Immature Gran % (Auto) 0.2 Neut % (Auto) 78.1 H Lymph % (Auto) 11.5 L [place] % (Auto) 7.7 Eos % (Auto) 2.3 Baso % (Auto) 0.2 Lymph # (Auto) 0.55 L [place] # (Auto) 0.4 Eos # (Auto) 0.1 Baso # (Auto) 0.0 Abs Immat Gran (auto) 0.01 Absolute Neuts (auto) 3.7 Absolute Nucleated RBC 0.000 Nucleated RBC % 0.0 PT 15.1 H INR 1.2 APTT 33.6 Sodium 142 Potassium 2.9 L Chloride 111 H Carbon Dioxide 24 Anion Gap 7 BUN 25 H Creatinine 1.01 Estim Creat Clear Calc 54 Estimated GFR > 60 Glucose 96 Calcium 8.9 Magnesium 1.9 Total Bilirubin 0.9 AST 26 ALT 14 Alkaline Phosphatase 76 Total Protein 5.8 L Albumin 3.4 L
[2025-05-25 14:00] VITALS: BP 164/77; PULSE 74; RESP 20; O2SAT 99
--- NOTE | 2025-05-25 17:14 | P.PNGI_ITS ---
Progress Note: A&P Assessment and Plan (1) SBO (small bowel obstruction): Code(s): K56.609 - Unspecified intestinal obstruction, unspecified as to partial versus complete obstruction Status: Acute Assessment and Plan: high grade obstruction at SBO, final decision is surgery tomorrow ngt in place most likely this is colon cancer causing sbo of ileum and liver mets oncologist also will see patient no plan for colonoscopy (2) Colonic mass: Code(s): K63.89 - Other specified diseases of intestine Status: Acute (3) Metastasis to liver: Code(s): C78.7 - Secondary malignant neoplasm of liver and intrahepatic bile duct Status: Acute (4) Chronic kidney disease, stage 3a: Code(s): N18.31 - Chronic kidney disease, stage 3a Status: Acute Subjective Date/time seen: 05/25/25 17:14 Interval history: ngt in place, he is now comfortable SBFT with high grade SB obstruction Review of Systems Review of Systems: All systems reviewed & are unremarkable except as noted in HPI and below Exam Narrative: General: NAD neck- supple Eyes: EOMI ENT: NGT in place Cardiovascular: Regular rate and rhythm Respiratory: Clear to auscultation Gastrointestinal: Soft, mild distention, nontender, NG in place with minimal output, bowel sounds active Genitourinary: no suprapubic tenderness Musculoskeletal: No edema Skin: warm, dry Neuro: Alert. Psych: Mood appropriate Objective Data Vital Signs Vital Signs: Vital Signs - 24 hr 05/24/25 20:00 05/24/25 22:00 05/25/25 06:00 Temperature 98.5 F Pulse Rate 83 83 81 Respiratory Rate 18 18 20 Blood Pressure 144/81 H 141/64 H Pulse Oximetry 95 96 97 Oxygen Delivery Room Air 05/25/25 08:13 05/25/25 14:00 Temperature Pulse Rate 74 Respiratory Rate 20 Blood Pressure 164/77 H Pulse Oximetry 99 Oxygen Delivery Room Air Intake/Output Intake/Output: Intake & Output 05/22/25 05/23/25 05/24/25 05/25/25 23:59 23:59 23:59 23:59 Intake Total 1050 1250 100 Output Total 350 350 Balance 1050 900 -250 Meds/Results Medications: Active Medications Generic Name Dose Route Start Last Admin Trade Name Freq PRN Reason Stop Dose Admin Artificial Tears 1 drop 05/24/25 01:53 Artificial Tears Ophth Soln 15 Ml Bottle EACH EYE QID PRN Dry Eye(s) Lactated Ringer's 1,000 mls @ 100 mls/hr 05/23/25 16:45 05/24/25 02:49 Lr - Lactated Ringers Iv IV CONT 100 mls/hr .Q10H BRE Administration Cefazolin Sodium 2 gm/ Sodium 50 mls @ 100 mls/hr 05/26/25 14:00 Chloride IVPB 05/26/25 14:29 ONCE ONE Metronidazole 500 mg in 100 mls @ 100 mls/hr 05/26/25 14:00 Flagyl 500 Mg/Iso Soln 100 Ml IVPB 05/26/25 14:59 ONCE ONE Morphine Sulfate 2 mg 05/23/25 23:46 Morphine Sulfate (*Crx) 4 Mg/Ml Inj IV PUSH Q4H PRN Pain Rated 7-10 Ondansetron HCl 4 mg 05/23/25 23:46 Ondansetron Inj 4 Mg/2 Ml Vial IV PUSH Q4H PRN Nausea And Vomiting Radiology Results: ITS Impressions Abdomen/Pelvis CT 05/23/25 15:01 IMPRESSION: 1. Evidence of mechanical small bowel obstruction with small amount of free fluid in the peritoneal cavity. 2. Significant irregular thickening of the wall of the cecum near the ileocecal junction is quite concerning for malignancy in the cecum causing the small bowel obstruction. 3. Possible 1 cm metastatic lesion to the right lobe of the liver. 4. 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 Chest CT 05/24/25 10:14 IMPRESSION: 1. No gross evidence of metastatic disease within the chest. Liver lesions noted possibly representing metastatic liver disease. 2. Enlarged main pulmonary artery which could be associated with pulmonary arterial hypertension. 3. Other findings as above. Small Bowel X-Ray 05/24/25 19:29 IMPRESSION: 1. Evidence of high-grade mechanical small bowel obstruction at the level of distal small bowel with no contrast seen within the colon at 5 hours. Findings are consistent with CT findings noted on 05/23/2025. 2. Delayed small bowel series with KUB tomorrow morning is recommended. Abdomen X-Ray 05/25/25 08:14 IMPRESSION: Findings consistent with high-grade partial small bowel obstruction versus severe ileus. Abdomen Ultrasound 05/25/25 12:06 IMPRESSION: 1. Cholelithiasis. 2. Subtle 1.5 cm hypoechoic lesion in the right hepatic lobe which based on prior CT imaging is concerning for metastatic disease. Labs Labs: Laboratory Results - last 24 hr 05/25/25 05:23 WBC 4.8 RBC 3.46 L Hgb 10.8 L Hct 32.1 L MCV 92.8 MCH 31.2 MCHC 33.6 RDW 14.8 H Plt Count 142 L MPV 8.8 Immature Gran % (Auto) 0.2 Neut % (Auto) 78.1 H Lymph % (Auto) 11.5 L [place] % (Auto) 7.7 Eos % (Auto) 2.3 Baso % (Auto) 0.2 Lymph # (Auto) 0.55 L [place] # (Auto) 0.4 Eos # (Auto) 0.1 Baso # (Auto) 0.0 Abs Immat Gran (auto) 0.01 Absolute Neuts (auto) 3.7 Absolute Nucleated RBC 0.000 Nucleated RBC % 0.0 PT 15.1 H INR 1.2 APTT 33.6 Sodium 142 Potassium 2.9 L Chloride 111 H Carbon Dioxide 24 Anion Gap 7 BUN 25 H Creatinine 1.01 Estim Creat Clear Calc 54 Estimated GFR > 60 Glucose 96 Calcium 8.9 Magnesium 1.9 Total Bilirubin 0.9 AST 26 ALT 14 Alkaline Phosphatase 76 Total Protein 5.8 L Albumin 3.4 L
[2025-05-25] MEDS: LACTATED RINGERS 1,000 ML 100 ML IV CONT (17:47)
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
[2025-05-25 21:06] VITALS: BP 137/71; PULSE 74; RESP 18; TEMP 36.3; O2SAT 100
[2025-05-26] VITALS (14 sets, daily range): BP systolic 143–177; BP diastolic 74–95; PULSE 74–89; RESP 13–18; TEMP 36.1–37.3; O2SAT 96–100
[2025-05-26] MEDS: LACTATED RINGERS 1,000 ML 100 ML IV CONT ×2 (04:50→21:25)
[2025-05-26 05:40] LABS: Hematocrit 32.0 % (42.0-52.0); Hemoglobin 10.5 g/dL (14.0-18.0); Immature Granulocyte Percent A 0.5 % (0-0.5); Lymphocytes Absolute Auto 0.75 K/mm3 (0.9-3.2); Mean Corpuscular HGB Conc 32.8 g/dl (32-36); Mean Corpuscular Hemoglobin 30.6 pg (26-34); Mean Corpuscular Volume 93.3 fl (80-100); Nucleated Red Blood Cells Absolute Auto 0.000 K/mm3 (0.0-0.012); Nucleated Red Blood Cells Perc 0.0 % (0.0-0.2); Platelet Count Result 155 k/mm3 (150-375); Red Blood Count 3.43 M/mm3 (4.6-6.20); White Blood Count 6.4 K/mm3 (4.5-10.0)
[2025-05-26] MEDS: POTASSIUM CHLORIDE INJ 40 MEQ in SODIUM CHLORIDE 0.9% IV 500 ML 130 MEQ IVPB (08:32)
--- NOTE | 2025-05-26 08:50 | P.PNIM_ITS ---
Assessment and Plan Assessment and Plan (1) SBO (small bowel obstruction): Code(s): K56.609 - Unspecified intestinal obstruction, unspecified as to partial versus complete obstruction Status: Acute Assessment and Plan: - admit CT A/P with evidence of mechanical SBO with small amount of free fluid, irregular thickening of the wall of the cecum near the ileocecal junction is quite concerning for malignancy in the cecum causing the small bowel obstruction. Possible 1 cm metastatic lesion to the right lobe of the liver. 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 - SBFT 05/24 with evidence of high-grade mechanical small bowel obstruction - KUB 05/25 with persistent small bowel obstruction - patient has never had a colonoscopy. Reports history of negative Cologuard. -general surgery consulted - continue NG. Planning for OR today. - GI consulted - planning for colonoscopy once bowel obstruction resolved - oncology consulted - recommends liver biopsy either intraoperatively or as outpatient (2) Liver lesion: Code(s): K76.9 - Liver disease, unspecified Status: Acute Assessment and Plan: - CT with liver lesions possibly representing metastatic disease - RUQ US with subtle 1.5 cm hypoechoic lesion in the right hepatic lobe - LFTs WNL - GI following - oncology consulted (3) Abnormal urinalysis: Code(s): R82.90 - Unspecified abnormal findings in urine Status: Acute Assessment and Plan: - UA with positive nitrates, 1+ LE, 6-10 WBC - patient denies urinary symptoms - hold off on antibiotics (4) Chronic kidney disease, stage 3a: Code(s): N18.31 - Chronic kidney disease, stage 3a Status: Acute Assessment and Plan: - Cr 1.01, near baseline - avoid nephrotoxins (5) Malignant neoplasm of prostate: Code(s): C61 - Malignant neoplasm of prostate Status: Acute Assessment and Plan: - s/p radiation - home abiraterone on hold due to NPO status, resume when able (6) Hypokalemia: Code(s): E87.6 - Hypokalemia Status: Acute Assessment and Plan: - K+ 2.8 - ordered IV replacement, repeat pending Plan Code status: full code DVT prophylaxis: SCDs Dispo: TBD pending clinical course Medical Record Review I have reviewed the following patient records and this information was taken into consideration when formulating the assessment and plan.: previous labs Consultations Consultations: I have discussed the care of this pt with the consulting providers. (discussed with general surgery, JAGJIT Meredith) Subjective Date/time seen: 05/26/25 08:50 Interval history: Patient seen and examined at bedside. Denied abdominal pain. Passing flatus and small amont of stool. Still agreeable to proceed with surgery. Review of Systems Review of Systems: All systems reviewed & are unremarkable except as noted in HPI and below Exam Narrative: General: NAD Eyes: EOMI ENT: neck supple Cardiovascular: Regular rate and rhythm Respiratory: Clear to auscultation, respirations even and unlabored on RA Gastrointestinal: Soft, mild distention, nontender, NG in place with minimal output, bowel sounds active Genitourinary: no suprapubic tenderness Musculoskeletal: No edema Skin: warm, dry Neuro: Alert. Psych: Mood appropriate Objective Data Vital Signs Vital Signs: Vital Signs - 24 hr 05/25/25 14:00 05/25/25 21:06 05/25/25 21:06 Temperature 97.4 F L Pulse Rate 74 74 Respiratory Rate 20 18 Blood Pressure 164/77 H 137/71 Pulse Oximetry 99 100 100 Oxygen Delivery Room Air 05/26/25 05:08 05/26/25 08:41 Temperature 97.1 F L Pulse Rate 75 Respiratory Rate 18 Blood Pressure 162/74 H Pulse Oximetry 98 Oxygen Delivery Room Air Intake/Output Intake/Output: Intake & Output 05/23/25 05/24/25 05/25/25 05/26/25 23:59 23:59 23:59 23:59 Intake Total 1050 1250 1100 1200 Output Total 350 650 400 Balance 1050 900 450 800 Meds/Results Medications: Active Medications Generic Name Dose Route Start Last Admin Trade Name Freq PRN Reason Stop Dose Admin Artificial Tears 1 drop 05/24/25 01:53 Artificial Tears Ophth Soln 15 Ml Bottle EACH EYE QID PRN Dry Eye(s) Lactated Ringer's 1,000 mls @ 100 mls/hr 05/23/25 16:45 05/26/25 04:50 Lr - Lactated Ringers Iv IV CONT 100 mls/hr .Q10H BRE Administration Cefazolin Sodium 2 gm/ Sodium 50 mls @ 100 mls/hr 05/26/25 14:00 Chloride IVPB 05/26/25 14:29 ONCE ONE Metronidazole 500 mg in 100 mls @ 100 mls/hr 05/26/25 14:00 Flagyl 500 Mg/Iso Soln 100 Ml IVPB 05/26/25 14:59 ONCE ONE Potassium Chloride 40 meq/ 520 mls @ 130 mls/hr 05/26/25 06:40 05/26/25 08:32 Sodium Chloride IVPB 05/26/25 10:39 130 mls/hr ONCE ONE Administration Morphine Sulfate 2 mg 05/23/25 23:46 Morphine Sulfate (*Crx) 4 Mg/Ml Inj IV PUSH Q4H PRN Pain Rated 7-10 Ondansetron HCl 4 mg 05/23/25 23:46 Ondansetron Inj 4 Mg/2 Ml Vial IV PUSH Q4H PRN Nausea And Vomiting Radiology Results: ITS Impressions Abdomen/Pelvis CT 05/23/25 15:01 IMPRESSION: 1. Evidence of mechanical small bowel obstruction with small amount of free fluid in the peritoneal cavity. 2. Significant irregular thickening of the wall of the cecum near the ileocecal junction is quite concerning for malignancy in the cecum causing the small bowel obstruction. 3. Possible 1 cm metastatic lesion to the right lobe of the liver. 4. 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 Chest CT 05/24/25 10:14 IMPRESSION: 1. No gross evidence of metastatic disease within the chest. Liver lesions noted possibly representing metastatic liver disease. 2. Enlarged main pulmonary artery which could be associated with pulmonary arterial hypertension. 3. Other findings as above. Small Bowel X-Ray 05/24/25 19:29 IMPRESSION: 1. Evidence of high-grade mechanical small bowel obstruction at the level of distal small bowel with no contrast seen within the colon at 5 hours. Findings are consistent with CT findings noted on 05/23/2025. 2. Delayed small bowel series with KUB tomorrow morning is recommended. Abdomen X-Ray 05/25/25 08:14 IMPRESSION: Findings consistent with high-grade partial small bowel obstruction versus severe ileus. Abdomen Ultrasound 05/25/25 12:06 IMPRESSION: 1. Cholelithiasis. 2. Subtle 1.5 cm hypoechoic lesion in the right hepatic lobe which based on prior CT imaging is concerning for metastatic disease. Labs Labs: Laboratory Results - last 24 hr 05/26/25 05:30 WBC 6.4 RBC 3.43 L Hgb 10.5 L Hct 32.0 L MCV 93.3 MCH 30.6 MCHC 32.8 RDW 14.9 H Plt Count 155 MPV 8.3 Immature Gran % (Auto) 0.5 Neut % (Auto) 78.2 H Lymph % (Auto) 11.8 L [place] % (Auto) 6.8 Eos % (Auto) 2.4 Baso % (Auto) 0.3 Lymph # (Auto) 0.75 L [place] # (Auto) 0.4 Eos # (Auto) 0.2 Baso # (Auto) 0.0 Abs Immat Gran (auto) 0.03 Absolute Neuts (auto) 5.0 Absolute Nucleated RBC 0.000 Nucleated RBC % 0.0 Blood Type O Negative Weak D (Du) 1+ Antibody Screen Negative Quality VTE Prophylaxis VTE prophylaxis: mechanical ordered
--- NOTE | 2025-05-26 12:11 | WPDHPUPDATE1 ---
History and Physical Update Update Date/Time: 05/26/25 12:11 History and Physical has been reviewed, including an updated exam of the patient. There are NO changes in the patient's condition. Risks, benefits, and alternatives have been discussed and questions answered. Patient agrees to proceed with procedure.
[2025-05-26 12:26] LABS: Alanine Aminotransferase 15 U/L (6-50); Albumin Level 3.4 g/dL (3.5-5.1); Alkaline Phosphatase 75 U/L (38-126); Anion Gap 8 mmol/L (4-12); Aspartate Amino Transferase 31 U/L (17-59); Bilirubin,Total 1.0 mg/dL (0.2-1.3); Blood Urea Nitrogen 25 mg/dL (9-20); Calcium 8.7 mg/dL (8.4-10.2); Carbon Dioxide 24 mmol/L (22-30); Chloride 111 mmol/L (98-107); Estimated CRCL calculation 59 ml/min; Estimated Glomerular Filt Rate > 60; Glucose 71 mg/dL (65-110); Magnesium 1.9 mg/dL (1.6-2.3); Sodium 143 mmol/L (137-145); Total Protein 5.8 g/dL (6.3-8.2)
[2025-05-26 13:34] LABS: Potassium 3.3 mmol/L (3.4-5.0)
--- NOTE | 2025-05-26 13:56 | PC.NURSE ---
Patient off unit for surgery around 13:40.
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
[2025-05-26] MEDS: LACTATED RINGERS 1,000 ML 30 ML IV CONT ×2 (14:07→15:54)
[2025-05-26] MEDS: metroNIDAZOLE 500 MG/ISO 100ML 500 MG/100 ML BAG 100 MG IVPB (14:10)
[2025-05-26] MEDS: ceFAZolin 2 GM in SODIUM CHLORIDE 0.9% IV 50 ML 100 ML IVPB (14:10)
[2025-05-26] MEDS: BUPIVACAINE/EPINEPHRINE 0.5% 50 ML VIAL 30 ML INFILTRATE (14:31)
--- NOTE | 2025-05-26 15:04 | S_PTH ---
PATIENT: Abdoul Allen LOC: [id number] U#:[id number] AGE/SX: 89/M ROOM: 345 RE05/23/[address]: LINDSEY Waldron : 1935 BED: 01 DIS: 05/29/2025 SPEC #: [id number] RECD: 05/29/25 08:09 STATUS: OCHOA REQ #: [id number] LUIS: 05/26/25 15:[address]: Juventino Gracia DEPT: [facility] Surgical RECD BY: Deya Cole ENTERED: 05/29/25 08:10 SP TYPE: Surgical OTHR DR: MD Alma Campoverde DO Onyema Nnanna, MD Natalie J. Ross, PA Tissues: A - Colon Segment Tumor B - Mass Procedures: Hematoxylin and Eosin Stain Gross and Microscopic Level 3 Gross and Microscopic Level 6 MLH1 MSH2 MSH6 PMS2
[2025-05-26] MEDS: INDOCYANINE GREEN 25 MG VIAL WITH DILUENT 3.75 MG IV PUSH (15:15)
--- NOTE | 2025-05-26 16:01 | P.OP_ITS ---
Procedure Note - Detailed Date of Procedure 05/26/25 Pre-op Diagnosis Cecal mass, partial small bowel obstruction, liver mass Post-op Diagnosis Same Procedure Performed Hand assisted laparoscopic right hemicolectomy with ileocolic anastomosis Laparoscopic wedge liver biopsy Surgeon Juventino Gracia, DO Anesthesia General and Local (0.5% bupivacaine with epi) Indications This is an 89-year-old man who presented to the emergency department with bloating, nausea, and vomiting. CT showed evidence of a distal small-bowel obstruction at the ileocecal valve. There was findings of a suspected mass at the cecum along with possible metastases to the liver. NG tube was placed and small-bowel follow-through was obtained which showed evidence of a high-grade obstruction at the ileocecal valve. Due to the high likelihood of this becoming completely obstructed soon or patient continuing to have persistent symptoms, discussions about surgical resection of the involved section of bowel were made. Decision was made to proceed with hand assisted laparoscopic right hemicolectomy, possible open. Findings Hand assisted laparoscopic right hemicolectomy was performed. The mass was identified in the cecum and there did appear to be some thickened mesocolon associated with this area as well. A high ligation of the ileocolic vessels was performed. The terminal ileum and transverse colon appeared healthy and viable. A oreg-do-jtom anti peristaltic ileocolic anastomosis was performed. Indocyanine green was infused to assess for adequate perfusion at the anastomosis. I then inspected the liver and did identify a mass on the inferior edge of the left lobe of the liver near the falciform ligament. This appeared right at the surface of the liver therefore this was excised with a wedge resection to send for pathology. No other intra-abdominal abnormalities were noted. Description of Procedure Procedure as well as risks benefits and alternatives were explained to the patient. Written consent was obtained and placed in chart prior to procedure. Patient was brought back to surgical suite. [] was placed supine on operating table. Time-out was done to confirm patient procedure. [] was then intubated by the anesthesia department. [] abdomen was prepped and draped in sterile fashion using chlorhexidine prep. A 7 centimeter vertical incision was made just superior to the umbilicus using a 15 blade scalpel. Electrocautery was used for hemostasis and for dissection down through Kristen's fascia. The linea alba was identified, and incised using electrocautery. Two Lisette clamps were used to lift the fascia anteriorly, and the peritoneum was then entered using electrocautery. The abdomen was inspected and no acute abnormalities were noted. The wound protector was placed at this incision, and the GelPort was applied with a 5 millimeter port placed through it. Carbon dioxide insufflation was used to create a pneumoperitoneum. The camera was inserted and the abdominal cavity was inspected. The tattooed region was identified on the [] colon, and no other abnormalities were noted. The patient was placed in Trendelenburg position and rotated slightly to the left. A 5 millimeter i ncision was made in the lower midline and a 5 millimeter trocar was inserted under direct visualization. Another 5 millimeter incision was made in the left lower quadrant, and a 5 millimeter trocar was inserted under direct visualization. A transversus abdominis plane block with Exparel was performed under laparoscopic visualization bilaterally. After carefully inspecting the abdominal cavity, I began my dissection from a medial to lateral direction along the ileocolic pedicle. The cecum was tented anteriorly and laterally and this allowed me to visualize the ileocolic pedicle. The medial side and inferior side of the peritoneum was scored using hook electrocautery and the retroperitoneal plane was entered. Careful dissection was performed using hook electrocautery in this relatively avascular plane. The duodenum was identified and swept posteriorly. I then continued to dissect proximally along the ileocolic pedicle. I isolated the ileocolic vein and artery individually and pe rformed a high ligation using bipolar cautery. Hemostasis appeared adequate. I then continued the medial to lateral dissection maintaining this avascular plane. I also dissected along the transverse colon to the right side all the way to the level of the hepatic flexure. The terminal ileum and appendix were then retracted medially and the lateral peritoneal attachments were taken down using hook electrocautery. The root of the mesentery was then carefully taken down proximally to allow adequate mobilization of the small bowel for our anastomosis. The lateral peritoneal attachments of the ascending colon were then taken down using hook electrocautery. The hepatic flexure was taken down using ligasure bipolar cautery. Once this was completed I gained adequate mobilization of the entire ascending and proximal transverse colon to exteriorize and perform our resection and anastomosis. The patient was flattened out in bed, and the cecum was grasped and delivered through the wound protector. The pneumoperitoneum was released. I carefully delivered the entire ascending and proximal transverse colon out through the hand port incision. The specimen was inspected and appeared to have adequate mobilization beyond the tattoo to perform our resection. The transverse colon was cleared of the epiploic appendages and omentum and a ALEXIS 75 millimeter blue load stapler was advanced across the transverse colon at this point and clamped and fired. The right branch of the middle colic artery was then ligated using bipolar cautery. Hemostasis appeared adequate. A window was then created in the mesentery at the terminal ileum, and a ALEXIS 75 millimeter blue load stapler was advanced across the terminal ileum at this point and clamped and fired. The remaining mesentery attachments were then taken down using bipolar cautery. This freed up the specimen completely, and it was then removed and sent to the lab for pathology. The 2 ends of the bowel were inspected and appeared healthy and viable. They came together in a [id number] fashion without any tension. Enterotomies were then made at the anti mesenteric border using electrocautery. The ALEXIS 75 millimeter blue load stapler was then advanced through each enterotomy and the 2 limbs of the bowel were clamped together in a [id number] fashion and then the stapler was fired to create our anastomosis. The stapler was removed and the anastomosis was inspected. It appeared healthy and viable. The enterotomy was then closed using a TLC 60 millimeter blue load stapler. The apex of the staple line was then reinforced using 3 0 silk seromuscular imbricating sutures. The anastomosis was inspected and appeared healthy and viable and appeared widely patent. The anastomosis was then released back down into the abdominal cavity. The GelPort was then reapplied and pneumoperitoneum was recreated. I then inspected the anastomosis laparoscopically and then used near infrared fluorescence imaging to assess for perfusion of the anastomosis while indocyanine green was infused intravenously. Perfusion appeared excellent at the anastomosis. I then switched back to the regular scope and inspected the liver. There appeared to be a mass on the inferior edge of the left lobe of the liver near the falciform ligament. This appeared to be consistent with a possible metastasis. Since it was right at the surface of the liver, decision was made to perform a wedge resection using LigaSure bipolar cautery. The specimen was completely excised and sent to the lab for pathology. The liver edge was then inspected and hemostasis appeared adequate. One final inspection was made around the abdominal cavity, and no other abnormalities were noted. Hemostasis appeared adequate. The ports and wound protector were then removed. The sterile closing tray was used for abdomen closure, along with sterile gown and gloves. The fascia of the hand port incision was reapproximated using 0 PDS running suture starting at each end and meeting in the middle. The deep dermis was approximated using 3 0 Vicryl inverted interrupted sutures. The skin of all the incisions was approximated using 4-0 Monocryl subcuticular suture. Exofin glue was applied on top. The patient was awakened from anesthesia, extubated, and transferred to recovery. Estimated Blood Loss 20 Urine Output 350 Pathology Yes (Right colon, wedge liver mass biopsy) Complications No immediate complications Condition Stable Disposition Floor [facility] Billing Surgery - Charge Forward: Surgery Billing
[2025-05-26] MEDS: fentaNYL CITRATE INJ (*CRX) 100 MCG/2 ML VIAL 25 MCG IV PUSH ×2 (16:28→16:31)
[2025-05-26] MEDS: HYDROcodone/acetaminophen (*CRX) 5-325 MG TABLET 1 TAB PO (17:27)
[2025-05-26] MEDS: MORPHINE SULFATE (*CRX) 4 MG/ML INJ 2 MG IV PUSH (21:21)
[2025-05-26] MEDS: ACETAMINOPHEN 325 MG TABLET 650 MG PO (23:55)
[2025-05-27] VITALS (9 sets, daily range): BP systolic 112–147; BP diastolic 71–84; PULSE 76–95; RESP 16–18; TEMP 36.2–37.2; O2SAT 94–97
[2025-05-27] MEDS: ACETAMINOPHEN 325 MG TABLET 650 MG PO ×4 (05:47→23:18)
[2025-05-27 05:53] LABS: Hematocrit 30.6 % (42.0-52.0); Hemoglobin 10.3 g/dL (14.0-18.0); Immature Granulocyte Percent A 0.6 % (0-0.5); Lymphocytes Absolute Auto 0.64 K/mm3 (0.9-3.2); Mean Corpuscular HGB Conc 33.7 g/dl (32-36); Mean Corpuscular Hemoglobin 31.2 pg (26-34); Mean Corpuscular Volume 92.7 fl (80-100); Nucleated Red Blood Cells Absolute Auto 0.000 K/mm3 (0.0-0.012); Nucleated Red Blood Cells Perc 0.0 % (0.0-0.2); Platelet Count Result 155 k/mm3 (150-375); Red Blood Count 3.30 M/mm3 (4.6-6.20); White Blood Count 8.0 K/mm3 (4.5-10.0)
[2025-05-27 06:16] LABS: Alanine Aminotransferase 13 U/L (6-50); Albumin Level 2.7 g/dL (3.5-5.1); Alkaline Phosphatase 58 U/L (38-126); Anion Gap 5 mmol/L (4-12); Aspartate Amino Transferase 29 U/L (17-59); Bilirubin,Total 1.0 mg/dL (0.2-1.3); Blood Urea Nitrogen 21 mg/dL (9-20); Calcium 7.9 mg/dL (8.4-10.2); Carbon Dioxide 22 mmol/L (22-30); Chloride 111 mmol/L (98-107); Estimated CRCL calculation 59 ml/min; Estimated Glomerular Filt Rate > 60; Glucose 83 mg/dL (65-110); Magnesium 1.9 mg/dL (1.6-2.3); Potassium 2.8 mmol/L (3.4-5.0); Sodium 138 mmol/L (137-145); Total Protein 4.8 g/dL (6.3-8.2)
[2025-05-27] MEDS: LACTATED RINGERS 1,000 ML 100 ML IV CONT (07:45)
[2025-05-27] MEDS: POTASSIUM CHLORIDE INJ 40 MEQ in SODIUM CHLORIDE 0.9% IV 500 ML 130 MEQ IVPB (07:45)
[2025-05-27] MEDS: POTASSIUM CHLORIDE 20 MEQ ER TABLET 40 MEQ PO ×2 (07:47→07:48)
[2025-05-27] MEDS: ENOXAPARIN 40 MG/0.4 ML SYRINGE SUB-Q (07:48)
--- NOTE | 2025-05-27 08:15 | P.PNIM_ITS ---
Assessment and Plan Assessment and Plan (1) SBO (small bowel obstruction): Code(s): K56.609 - Unspecified intestinal obstruction, unspecified as to partial versus complete obstruction Status: Acute Assessment and Plan: SBO secondary to cecal mass - admit CT A/P with evidence of mechanical SBO with small amount of free fluid, irregular thickening of the wall of the cecum near the ileocecal junction is quite concerning for malignancy in the cecum causing the small bowel obstruction. Possible 1 cm metastatic lesion to the right lobe of the liver. 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 - SBFT 05/24 with evidence of high-grade mechanical small bowel obstruction - KUB 05/25 with persistent small bowel obstruction - patient has never had a colonoscopy. Reports history of negative Cologuard. - s/p laparoscopic right hemicolectomy with ileocolic anastomosis and liver mass biopsy 05/26/[address] Gracia. Follow-up pathology. -general surgery consulted - continue NG. Planning for OR today. - GI following - oncology consulted - patient plans to follow-up with his own outpatient oncologist (2) Liver lesion: Code(s): K76.9 - Liver disease, unspecified Status: Acute Assessment and Plan: - CT with liver lesions possibly representing metastatic disease - RUQ US with subtle 1.5 cm hypoechoic lesion in the right hepatic lobe - LFTs WNL - GI following - follow-up pathology from liver biopsy (3) Abnormal urinalysis: Code(s): R82.90 - Unspecified abnormal findings in urine Status: Acute Assessment and Plan: - UA with positive nitrates, 1+ LE, 6-10 WBC - patient denies urinary symptoms - hold off on antibiotics (4) Chronic kidney disease, stage 3a: Code(s): N18.31 - Chronic kidney disease, stage 3a Status: Acute Assessment and Plan: - Cr 1.01, near baseline - avoid nephrotoxins (5) Malignant neoplasm of prostate: Code(s): C61 - Malignant neoplasm of prostate Status: Acute Assessment and Plan: - s/p radiation - resume abiraterone (6) Hypokalemia: Code(s): E87.6 - Hypokalemia Status: Acute Assessment and Plan: - K+ 2.8 - ordered PO/IV replacement, repeat pending Plan Code status: full code DVT prophylaxis: SCDs, Lovenox Dispo: TBD pending clinical course Medical Record Review I have reviewed the following patient records and this information was taken into consideration when formulating the assessment and plan.: previous labs Subjective Date/time seen: 05/27/25 08:15 Interval history: Patient seen and examined at bedside. Doing well post-op. Having some mild discomfort. Passing flatus. Denies chest pain, SOB, nausea. Review of Systems Review of Systems: All systems reviewed & are unremarkable except as noted in HPI and below Exam Narrative: General: NAD Eyes: EOMI ENT: neck supple Cardiovascular: Regular rate and rhythm Respiratory: Clear to auscultation, respirations even and unlabored on RA Gastrointestinal: Soft, mild distention, Surgical incisions clean dry and intact Genitourinary: no suprapubic tenderness Musculoskeletal: No edema Skin: warm, dry Neuro: Alert. Psych: Mood appropriate Objective Data Vital Signs Vital Signs: Vital Signs - 24 hr 05/26/25 08:41 05/26/25 13:57 05/26/25 15:54 Temperature 98.5 F 98.5 F Pulse Rate 82 86 Respiratory Rate 14 Blood Pressure 161/77 H 177/95 H Pulse Oximetry 99 100 Oxygen Delivery Room Air Room Air Simple Face Mask Oxygen Flow Rate 8 05/26/25 16:00 05/26/25 16:15 05/26/25 16:24 Temperature Pulse Rate 74 78 Respiratory Rate 13 14 Blood Pressure 167/90 H 172/88 H Pulse Oximetry 100 100 Oxygen Delivery Simple Face Mask Simple Face Mask Room Air Oxygen Flow Rate 8 8 05/26/25 16:30 05/26/25 16:45 05/26/25 17:00 Temperature 99.2 F Pulse Rate 80 76 78 Respiratory Rate 13 14 13 Blood Pressure 165/88 H 168/86 H 160/84 H Pulse Oximetry 98 97 99 Oxygen Delivery Room Air Nasal Cannula Nasal Cannula Oxygen Flow Rate 2 2 05/26/25 17:25 05/26/25 17:40 05/26/25 17:55 Temperature 97 F L 97.4 F L 97.4 F L Pulse Rate 85 86 86 Respiratory Rate 18 18 Blood Pressure 167/83 H 143/94 H 155/79 H Pulse Oximetry 97 97 97 Oxygen Delivery Oxygen Flow Rate 05/26/25 18:49 05/26/25 19:49 05/26/25 20:00 Temperature 97.6 F 98.6 F Pulse Rate 89 82 Respiratory Rate 18 16 Blood Pressure 148/76 H 157/82 H Pulse Oximetry 100 96 Oxygen Delivery Room Air Oxygen Flow Rate 05/26/25 20:46 05/27/25 00:05 05/27/25 06:06 Temperature 98.4 F 97.1 F L Pulse Rate 88 81 Respiratory Rate 16 18 Blood Pressure 134/73 124/71 Pulse Oximetry 97 97 94 Oxygen Delivery Nasal Cannula Oxygen Flow Rate 2 Intake/Output Intake/Output: Intake & Output 05/24/25 05/25/25 05/26/25 05/27/25 23:59 23:59 23:59 23:59 Intake Total 1250 1100 1750 1350 Output Total 350 650 750 Balance 440 362 9807 1350 Meds/Results Medications: Active Medications Generic Name Dose Route Start Last Admin Trade Name Freq PRN Reason Stop Dose Admin Acetaminophen 650 mg 05/26/25 18:00 05/27/25 05:47 Acetaminophen 325 Mg Tablet PO 650 mg Q6HR BRE Administration Hydrocodone Bitart/Acetaminophen 1 tab 05/26/25 17:10 05/26/25 17:27 Hydrocodone/Acetaminophen (*Crx) 5-325 Mg Tablet PO 1 tab Q4H PRN Administration Pain Rated 4-6 Hydrocodone Bitart/Acetaminophen 1 tab 05/26/25 17:10 Hydrocodone/Acetaminophen (*Crx) 7.5-325 Mg Tablet PO Q4H PRN Pain Rated 7-10 Artificial Tears 1 drop 05/24/25 01:53 Artificial Tears Ophth Soln 15 Ml Bottle EACH EYE QID PRN Dry Eye(s) Enoxaparin Sodium 40 mg 05/27/25 09:00 05/27/25 07:48 Enoxaparin 40 Mg/0.4 Ml Syringe SUB-Q 40 mg DAILY BRE Administration Lactated Ringer's 1,000 mls @ 100 mls/hr 05/26/25 17:10 05/27/25 07:45 Lr - Lactated Ringers Iv IV CONT 100 mls/hr .Q10H BRE Administration Potassium Chloride 40 meq/ 520 mls @ 130 mls/hr 05/27/25 06:46 05/27/25 07:45 Sodium Chloride IVPB 05/27/25 10:45 130 mls/hr ONCE ONE Administration Morphine Sulfate 2 mg 05/26/25 17:10 05/26/25 21:21 Morphine Sulfate (*Crx) 4 Mg/Ml Inj IV PUSH 2 mg Q2H PRN Administration Breakthrough Pain Rated 4-6 or NPO Morphine Sulfate 4 mg 05/26/25 17:10 Morphine Sulfate (*Crx) 4 Mg/Ml Inj IV PUSH Q2H PRN Breakthrough Pain Rated 7-10 or NPO Naloxone HCl 0.1 mg 05/26/25 17:10 Naloxone Hcl 0.4 Mg/Ml Vial IV PUSH Q2M PRN Opiate Reversal Ondansetron HCl 4 mg 05/23/25 23:46 Ondansetron Inj 4 Mg/2 Ml Vial IV PUSH Q4H PRN Nausea And Vomiting Potassium Chloride 40 meq 05/27/25 08:00 05/27/25 07:48 Potassium Chloride 20 Meq Er Tablet PO 05/27/25 17:01 40 meq BIDWM BRE Administration Radiology Results: ITS Impressions Abdomen/Pelvis CT 05/23/25 15:01 IMPRESSION: 1. Evidence of mechanical small bowel obstruction with small amount of free fluid in the peritoneal cavity. 2. Significant irregular thickening of the wall of the cecum near the ileocecal junction is quite concerning for malignancy in the cecum causing the small bowel obstruction. 3. Possible 1 cm metastatic lesion to the right lobe of the liver. 4. 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 Chest CT 05/24/25 10:14 IMPRESSION: 1. No gross evidence of metastatic disease within the chest. Liver lesions noted possibly representing metastatic liver disease. 2. Enlarged main pulmonary artery which could be associated with pulmonary arterial hypertension. 3. Other findings as above. Small Bowel X-Ray 05/24/25 19:29 IMPRESSION: 1. Evidence of high-grade mechanical small bowel obstruction at the level of distal small bowel with no contrast seen within the colon at 5 hours. Findings are consistent with CT findings noted on 05/23/2025. 2. Delayed small bowel series with KUB tomorrow morning is recommended. Abdomen X-Ray 05/25/25 08:14 IMPRESSION: Findings consistent with high-grade partial small bowel obstruction versus severe ileus. Abdomen Ultrasound 05/25/25 12:06 IMPRESSION: 1. Cholelithiasis. 2. Subtle 1.5 cm hypoechoic lesion in the right hepatic lobe which based on prior CT imaging is concerning for metastatic disease. Labs Labs: Laboratory Results - last 24 hr 05/26/25 05/26/25 05/27/25 05:30 13:15 05:34 WBC 8.0 RBC 3.30 L Hgb 10.3 L Hct 30.6 L MCV 92.7 MCH 31.2 MCHC 33.7 RDW 15.1 H Plt Count 155 MPV 8.5 Immature Gran % (Auto) 0.6 H Neut % (Auto) 82.2 H Lymph % (Auto) 8.0 L [place] % (Auto) 7.0 Eos % (Auto) 1.9 Baso % (Auto) 0.3 Lymph # (Auto) 0.64 L [place] # (Auto) 0.6 Eos # (Auto) 0.2 Baso # (Auto) 0.0 Abs Immat Gran (auto) 0.05 H Absolute Neuts (auto) 6.5 Absolute Nucleated RBC 0.000 Nucleated RBC % 0.0 Sodium 143 138 Potassium 2.8 L* 3.3 L 2.8 L* Chloride 111 H 111 H Carbon Dioxide 24 22 Anion Gap 8 5 BUN 25 H 21 H Creatinine 0.93 0.92 Estim Creat Clear Calc 59 59 Estimated GFR > 60 > 60 Glucose 71 83 Calcium 8.7 7.9 L Magnesium 1.9 1.9 Total Bilirubin 1.0 1.0 AST 31 29 ALT 15 13 Alkaline Phosphatase 75 58 Total Protein 5.8 L 4.8 L Albumin 3.4 L 2.7 L Quality VTE Prophylaxis VTE prophylaxis: mechanical ordered
--- NOTE | 2025-05-27 12:32 | P.PNGS_ITS ---
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 Pain controlled. Exam GI: Inspection: non-distended and incision (Intact with glue) GI Palp: Yes Soft to palpation, Yes Tenderness to palpation present (GI) (Incisional), No Guarding due to palpation present (GI) and No Rebound tenderness present Auscultation: normal bowel sounds Objective Data Vital Signs Vital Signs: Vital Signs - 24 hr 05/26/25 13:57 05/26/25 15:54 05/26/25 16:00 Temperature 98.5 F 98.5 F Pulse Rate 82 86 74 Respiratory Rate 14 13 Blood Pressure 161/77 H 177/95 H 167/90 H Pulse Oximetry 99 100 100 Oxygen Delivery Room Air Simple Face Mask Simple Face Mask Oxygen Flow Rate 8 8 05/26/25 16:15 05/26/25 16:24 05/26/25 16:30 Temperature Pulse Rate 78 80 Respiratory Rate 14 13 Blood Pressure 172/88 H 165/88 H Pulse Oximetry 100 98 Oxygen Delivery Simple Face Mask Room Air Room Air Oxygen Flow Rate 8 05/26/25 16:45 05/26/25 17:00 05/26/25 17:25 Temperature 99.2 F 97 F L Pulse Rate 76 78 85 Respiratory Rate 14 13 18 Blood Pressure 168/86 H 160/84 H 167/83 H Pulse Oximetry 97 99 97 Oxygen Delivery Nasal Cannula Nasal Cannula Oxygen Flow Rate 2 2 05/26/25 17:40 05/26/25 17:55 05/26/25 18:49 Temperature 97.4 F L 97.4 F L 97.6 F Pulse Rate 86 86 89 Respiratory Rate 18 18 Blood Pressure 143/94 H 155/79 H 148/76 H Pulse Oximetry 97 97 100 Oxygen Delivery Oxygen Flow Rate 05/26/25 19:49 05/26/25 20:00 05/26/25 20:46 Temperature 98.6 F Pulse Rate 82 Respiratory Rate 16 Blood Pressure 157/82 H Pulse Oximetry 96 97 Oxygen Delivery Room Air Nasal Cannula Oxygen Flow Rate 2 05/27/25 00:05 05/27/25 06:06 05/27/25 08:15 Temperature 98.4 F 97.1 F L Pulse Rate 88 81 Respiratory Rate 16 18 Blood Pressure 134/73 124/71 Pulse Oximetry 97 94 Oxygen Delivery Room Air Oxygen Flow Rate 05/27/25 10:55 Temperature 97.5 F L Pulse Rate 76 Respiratory Rate 18 Blood Pressure 147/84 H Pulse Oximetry 97 Oxygen Delivery Oxygen Flow Rate Intake/Output Intake/Output: Intake & Output 05/24/25 05/25/25 05/26/25 05/27/25 23:59 23:59 23:59 23:59 Intake Total 1250 1100 1750 1830 Output Total 350 650 750 Balance 156 735 5514 1830 Meds/Results Medications: Active Medications Generic Name Dose Route Start Last Admin Trade Name Freq PRN Reason Stop Dose Admin Acetaminophen 650 mg 05/26/25 18:00 05/27/25 05:47 Acetaminophen 325 Mg Tablet PO 650 mg Q6HR BRE Administration Hydrocodone Bitart/Acetaminophen 1 tab 05/26/25 17:10 05/26/25 17:27 Hydrocodone/Acetaminophen (*Crx) 5-325 Mg Tablet PO 1 tab Q4H PRN Administration Pain Rated 4-6 Hydrocodone Bitart/Acetaminophen 1 tab 05/26/25 17:10 Hydrocodone/Acetaminophen (*Crx) 7.5-325 Mg Tablet PO Q4H PRN Pain Rated 7-10 Artificial Tears 1 drop 05/24/25 01:53 Artificial Tears Ophth Soln 15 Ml Bottle EACH EYE QID PRN Dry Eye(s) Enoxaparin Sodium 40 mg 05/27/25 09:00 05/27/25 07:48 Enoxaparin 40 Mg/0.4 Ml Syringe SUB-Q 40 mg DAILY BRE Administration Miscellaneous Information 1 each 05/27/25 00:01 Abiraterone Is Nonformulary. Can He Use Home Supply? XX 06/26/25 00:00 CLARIFY [facility] Morphine Sulfate 2 mg 05/26/25 17:10 05/26/25 21:21 Morphine Sulfate (*Crx) 4 Mg/Ml Inj IV PUSH 2 mg Q2H PRN Administration Breakthrough Pain Rated 4-6 or NPO Morphine Sulfate 4 mg 05/26/25 17:10 Morphine Sulfate (*Crx) 4 Mg/Ml Inj IV PUSH Q2H PRN Breakthrough Pain Rated 7-10 or NPO Naloxone HCl 0.1 mg 05/26/25 17:10 Naloxone Hcl 0.4 Mg/Ml Vial IV PUSH Q2M PRN Opiate Reversal Non-Formulary Medication 1,000 mg 05/28/25 09:00 Abiraterone PO 06/27/25 08:59 DAILY [facility] Ondansetron HCl 4 mg 05/23/25 23:46 Ondansetron Inj 4 Mg/2 Ml Vial IV PUSH Q4H PRN Nausea And Vomiting Prednisone 5 mg 05/27/25 09:00 05/27/25 09:15 Prednisone 5 Mg Tablet PO 5 mg DAILY BRE Administration Radiology Results: ITS Impressions Abdomen/Pelvis CT 05/23/25 15:01 IMPRESSION: 1. Evidence of mechanical small bowel obstruction with small amount of free fluid in the peritoneal cavity. 2. Significant irregular thickening of the wall of the cecum near the ileocecal junction is quite concerning for malignancy in the cecum causing the small bowel obstruction. 3. Possible 1 cm metastatic lesion to the right lobe of the liver. 4. 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 Chest CT 05/24/25 10:14 IMPRESSION: 1. No gross evidence of metastatic disease within the chest. Liver lesions noted possibly representing metastatic liver disease. 2. Enlarged main pulmonary artery which could be associated with pulmonary arterial hypertension. 3. Other findings as above. Small Bowel X-Ray 05/24/25 19:29 IMPRESSION: 1. Evidence of high-grade mechanical small bowel obstruction at the level of distal small bowel with no contrast seen within the colon at 5 hours. Findings are consistent with CT findings noted on 05/23/2025. 2. Delayed small bowel series with KUB tomorrow morning is recommended. Abdomen X-Ray 05/25/25 08:14 IMPRESSION: Findings consistent with high-grade partial small bowel obstruction versus severe ileus. Abdomen Ultrasound 05/25/25 12:06 IMPRESSION: 1. Cholelithiasis. 2. Subtle 1.5 cm hypoechoic lesion in the right hepatic lobe which based on prior CT imaging is concerning for metastatic disease. Labs Labs: Laboratory Results - last 24 hr 05/26/25 05/27/25 13:15 05:34 WBC 8.0 RBC 3.30 L Hgb 10.3 L Hct 30.6 L MCV 92.7 MCH 31.2 MCHC 33.7 RDW 15.1 H Plt Count 155 MPV 8.5 Immature Gran % (Auto) 0.6 H Neut % (Auto) 82.2 H Lymph % (Auto) 8.0 L [place] % (Auto) 7.0 Eos % (Auto) 1.9 Baso % (Auto) 0.3 Lymph # (Auto) 0.64 L [place] # (Auto) 0.6 Eos # (Auto) 0.2 Baso # (Auto) 0.0 Abs Immat Gran (auto) 0.05 H Absolute Neuts (auto) 6.5 Absolute Nucleated RBC 0.000 Nucleated RBC % 0.0 Sodium 138 Potassium 3.3 L 2.8 L* Chloride 111 H Carbon Dioxide 22 Anion Gap 5 BUN 21 H Creatinine 0.92 Estim Creat Clear Calc 59 Estimated GFR > 60 Glucose 83 Calcium 7.9 L Magnesium 1.9 Total Bilirubin 1.0 AST 29 ALT 13 Alkaline Phosphatase 58 Total Protein 4.8 L Albumin 2.7 L
--- NOTE | 2025-05-27 14:27 | PHAR ---
home meds verified abiraterone 250mg tablets prednisone 5mg tablets
[2025-05-27 18:13] LABS: Potassium 3.9 mmol/L (3.4-5.0)
[2025-05-27] MEDS: MAG HYDROX/AL HYDROX/SIMETH 30 ML UDC PO (20:57)
[2025-05-28] VITALS (10 sets, daily range): BP systolic 148–166; BP diastolic 78–89; PULSE 67–102; RESP 16–18; TEMP 36.1–37.1; O2SAT 98–99
[2025-05-28] MEDS: ONDANSETRON INJ 4 MG/2 ML VIAL IV PUSH (05:08)
[2025-05-28 05:33] LABS: Hematocrit 35.2 % (42.0-52.0); Hemoglobin 12.1 g/dL (14.0-18.0); Immature Granulocyte Percent A 0.4 % (0-0.5); Lymphocytes Absolute Auto 0.73 K/mm3 (0.9-3.2); Mean Corpuscular HGB Conc 34.4 g/dl (32-36); Mean Corpuscular Hemoglobin 30.9 pg (26-34); Mean Corpuscular Volume 90.0 fl (80-100); Nucleated Red Blood Cells Absolute Auto 0.000 K/mm3 (0.0-0.012); Nucleated Red Blood Cells Perc 0.0 % (0.0-0.2); Platelet Count Result 190 k/mm3 (150-375); Red Blood Count 3.91 M/mm3 (4.6-6.20); White Blood Count 9.4 K/mm3 (4.5-10.0)
[2025-05-28 05:57] LABS: Alanine Aminotransferase 16 U/L (6-50); Albumin Level 3.2 g/dL (3.5-5.1); Alkaline Phosphatase 75 U/L (38-126); Anion Gap 3 mmol/L (4-12); Aspartate Amino Transferase 35 U/L (17-59); Bilirubin,Total 1.2 mg/dL (0.2-1.3); Blood Urea Nitrogen 18 mg/dL (9-20); Calcium 8.6 mg/dL (8.4-10.2); Carbon Dioxide 26 mmol/L (22-30); Chloride 107 mmol/L (98-107); Estimated CRCL calculation 63 ml/min; Estimated Glomerular Filt Rate > 60; Glucose 123 mg/dL (65-110); Magnesium 2.0 mg/dL (1.6-2.3); Potassium 3.4 mmol/L (3.4-5.0); Sodium 136 mmol/L (137-145); Total Protein 5.7 g/dL (6.3-8.2)
[2025-05-28] MEDS: ENOXAPARIN 40 MG/0.4 ML SYRINGE SUB-Q (09:08)
--- NOTE | 2025-05-28 12:05 | P.PNIM_ITS ---
Assessment and Plan Assessment and Plan (1) SBO (small bowel obstruction): Code(s): K56.609 - Unspecified intestinal obstruction, unspecified as to partial versus complete obstruction Status: Acute Assessment and Plan: SBO secondary to cecal mass - admit CT A/P with evidence of mechanical SBO with small amount of free fluid, irregular thickening of the wall of the cecum near the ileocecal junction is quite concerning for malignancy in the cecum causing the small bowel obstruction. Possible 1 cm metastatic lesion to the right lobe of the liver. 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 - SBFT 05/24 with evidence of high-grade mechanical small bowel obstruction - KUB 05/25 with persistent small bowel obstruction - patient has never had a colonoscopy. Reports history of negative Cologuard. - s/p laparoscopic right hemicolectomy with ileocolic anastomosis and liver mass biopsy 05/26/[address] Gracia. Follow-up pathology. - oncology consulted - patient plans to follow-up with his own outpatient oncologist (2) Liver lesion: Code(s): K76.9 - Liver disease, unspecified Status: Acute Assessment and Plan: - CT with liver lesions possibly representing metastatic disease - RUQ US with subtle 1.5 cm hypoechoic lesion in the right hepatic lobe - LFTs WNL - follow-up pathology from liver biopsy (3) Abnormal urinalysis: Code(s): R82.90 - Unspecified abnormal findings in urine Status: Acute Assessment and Plan: - UA with positive nitrates, 1+ LE, 6-10 WBC - patient denies urinary symptoms - hold off on antibiotics (4) Chronic kidney disease, stage 3a: Code(s): N18.31 - Chronic kidney disease, stage 3a Status: Acute Assessment and Plan: - Cr 06.15, near baseline - avoid nephrotoxins (5) Malignant neoplasm of prostate: Code(s): C61 - Malignant neoplasm of prostate Status: Acute Assessment and Plan: - s/p radiation - resume abiraterone and prednisone (6) Hypokalemia: Code(s): E87.6 - Hypokalemia Status: Acute Assessment and Plan: - resolved with IV/PO replacement Plan Code status: full code DVT prophylaxis: SCDs, Lovenox Dispo: home in 1-2 days Medical Record Review I have reviewed the following patient records and this information was taken into consideration when formulating the assessment and plan.: previous labs Subjective Date/time seen: 05/28/25 12:05 Interval history: Patient seen and examined at bedside. Passing flatus, still no BM. Minimal pain. Discussed plan of care. Review of Systems Review of Systems: All systems reviewed & are unremarkable except as noted in HPI and below Exam Narrative: General: NAD Eyes: EOMI ENT: neck supple Cardiovascular: Regular rate and rhythm Respiratory: Clear to auscultation, respirations even and unlabored on RA Gastrointestinal: Soft, mild distention, Surgical incision clean dry and intact Genitourinary: no suprapubic tenderness Musculoskeletal: No edema Skin: warm, dry Neuro: Alert. Psych: Mood appropriate Objective Data Vital Signs Vital Signs: Vital Signs - 24 hr 05/27/25 14:55 05/27/25 16:00 05/27/25 20:05 Temperature Pulse Rate 83 82 87 Respiratory Rate 16 Blood Pressure 112/79 Pulse Oximetry 97 Oxygen Delivery 05/27/25 20:07 05/27/25 20:27 05/28/25 00:07 Temperature 98.9 F Pulse Rate 95 78 Respiratory Rate 18 Blood Pressure 147/81 H Pulse Oximetry 97 97 Oxygen Delivery Room Air 05/28/25 04:29 05/28/25 04:32 05/28/25 08:00 Temperature 98.4 F Pulse Rate 67 81 Respiratory Rate 16 Blood Pressure 155/89 H Pulse Oximetry 99 Oxygen Delivery Room Air Intake/Output Intake/Output: Intake & Output 05/25/25 05/26/25 05/27/25 05/28/25 23:59 23:59 23:59 23:59 Intake Total 1100 1750 3810 480 Output Total 650 750 Balance 450 1000 3810 480 Meds/Results Medications: Active Medications Generic Name Dose Route Start Last Admin Trade Name Freq PRN Reason Stop Dose Admin Acetaminophen 650 mg 05/26/25 18:00 05/28/25 11:17 Acetaminophen 325 Mg Tablet PO Not Given Q6HR BRE Hydrocodone Bitart/Acetaminophen 1 tab 05/26/25 17:10 05/26/25 17:27 Hydrocodone/Acetaminophen (*Crx) 5-325 Mg Tablet PO 1 tab Q4H PRN Administration Pain Rated 4-6 Hydrocodone Bitart/Acetaminophen 1 tab 05/26/25 17:10 Hydrocodone/Acetaminophen (*Crx) 7.5-325 Mg Tablet PO Q4H PRN Pain Rated 7-10 Al Hydrox/Mg Hydrox/Simethicone 30 ml 05/27/25 20:31 05/27/25 20:57 Mag Hydrox/Al Hydrox/Simeth 30 Ml Udc PO 30 ml Q4H PRN Administration GERD Artificial Tears 1 drop 05/24/25 01:53 Artificial Tears Ophth Soln 15 Ml Bottle EACH EYE QID PRN Dry Eye(s) Enoxaparin Sodium 40 mg 05/27/25 09:00 05/28/25 09:08 Enoxaparin 40 Mg/0.4 Ml Syringe SUB-Q 40 mg DAILY BRE Administration Morphine Sulfate 2 mg 05/26/25 17:10 05/26/25 21:21 Morphine Sulfate (*Crx) 4 Mg/Ml Inj IV PUSH 2 mg Q2H PRN Administration Breakthrough Pain Rated 4-6 or NPO Morphine Sulfate 4 mg 05/26/25 17:10 Morphine Sulfate (*Crx) 4 Mg/Ml Inj IV PUSH Q2H PRN Breakthrough Pain Rated 7-10 or NPO Naloxone HCl 0.1 mg 05/26/25 17:10 Naloxone Hcl 0.4 Mg/Ml Vial IV PUSH Q2M PRN Opiate Reversal Home Med ( 1,000 mg 05/28/25 09:00 05/28/25 11:14 Abiraterone 250 Mg PO 06/27/25 08:59 1,000 mg Tablet) DAILY BRE Administration Home Med 1 each 05/28/25 09:00 05/28/25 11:14 Prednisone 5mg PO 06/27/25 08:59 1 each DAILY BRE Administration Ondansetron HCl 4 mg 05/23/25 23:46 05/28/25 05:08 Ondansetron Inj 4 Mg/2 Ml Vial IV PUSH 4 mg Q4H PRN Administration Nausea And Vomiting Radiology Results: ITS Impressions Abdomen/Pelvis CT 05/23/25 15:01 IMPRESSION: 1. Evidence of mechanical small bowel obstruction with small amount of free fluid in the peritoneal cavity. 2. Significant irregular thickening of the wall of the cecum near the ileocecal junction is quite concerning for malignancy in the cecum causing the small bowel obstruction. 3. Possible 1 cm metastatic lesion to the right lobe of the liver. 4. 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 Chest CT 05/24/25 10:14 IMPRESSION: 1. No gross evidence of metastatic disease within the chest. Liver lesions noted possibly representing metastatic liver disease. 2. Enlarged main pulmonary artery which could be associated with pulmonary arterial hypertension. 3. Other findings as above. Small Bowel X-Ray 05/24/25 19:29 IMPRESSION: 1. Evidence of high-grade mechanical small bowel obstruction at the level of distal small bowel with no contrast seen within the colon at 5 hours. Findings are consistent with CT findings noted on 05/23/2025. 2. Delayed small bowel series with KUB tomorrow morning is recommended. Abdomen X-Ray 05/25/25 08:14 IMPRESSION: Findings consistent with high-grade partial small bowel obstruction versus severe ileus. Abdomen Ultrasound 05/25/25 12:06 IMPRESSION: 1. Cholelithiasis. 2. Subtle 1.5 cm hypoechoic lesion in the right hepatic lobe which based on prior CT imaging is concerning for metastatic disease. Labs Labs: Laboratory Results - last 24 hr 05/27/25 05/28/25 17:56 05:29 WBC 9.4 RBC 3.91 L Hgb 12.1 L Hct 35.2 L MCV 90.0 MCH 30.9 MCHC 34.4 RDW 14.9 H Plt Count 190 MPV 8.4 Immature Gran % (Auto) 0.4 Neut % (Auto) 84.5 H Lymph % (Auto) 7.8 L [place] % (Auto) 5.0 Eos % (Auto) 2.1 Baso % (Auto) 0.2 Lymph # (Auto) 0.73 L [place] # (Auto) 0.5 Eos # (Auto) 0.2 Baso # (Auto) 0.0 Abs Immat Gran (auto) 0.04 H Absolute Neuts (auto) 8.0 H Absolute Nucleated RBC 0.000 Nucleated RBC % 0.0 Sodium 136 L Potassium 3.9 3.4 Chloride 107 Carbon Dioxide 26 Anion Gap 3 L BUN 18 Creatinine 0.88 Estim Creat Clear Calc 63 Estimated GFR > 60 Glucose 123 H Calcium 8.6 Magnesium 2.0 Total Bilirubin 1.2 AST 35 ALT 16 Alkaline Phosphatase 75 Total Protein 5.7 L Albumin 3.2 L Quality VTE Prophylaxis VTE prophylaxis: mechanical ordered
--- NOTE | 2025-05-28 15:09 | P.PNGS_ITS ---
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 Passing flatus but no BM yet. No nausea/vomiting. Exam GI: Inspection: non-distended and incision (Intact with glue) GI Palp: Yes Soft to palpation, Yes Tenderness to palpation present (GI) (Incisional), No Guarding due to palpation present (GI) and No Rebound tenderness present Auscultation: normal bowel sounds Objective Data Vital Signs Vital Signs: Vital Signs - 24 hr 05/27/25 16:00 05/27/25 20:05 05/27/25 20:07 Temperature 98.9 F Pulse Rate 82 87 95 Respiratory Rate 18 Blood Pressure 147/81 H Pulse Oximetry 97 Oxygen Delivery 05/27/25 20:27 05/28/25 00:07 05/28/25 04:29 Temperature Pulse Rate 78 67 Respiratory Rate Blood Pressure Pulse Oximetry 97 Oxygen Delivery Room Air 05/28/25 04:32 05/28/25 08:00 05/28/25 08:00 Temperature 98.4 F Pulse Rate 81 102 H Respiratory Rate 16 Blood Pressure 155/89 H Pulse Oximetry 99 Oxygen Delivery Room Air 05/28/25 13:25 Temperature 97.0 F L Pulse Rate 75 Respiratory Rate 16 Blood Pressure 148/78 H Pulse Oximetry 98 Oxygen Delivery Intake/Output Intake/Output: Intake & Output 05/25/25 05/26/25 05/27/25 05/28/25 23:59 23:59 23:59 23:59 Intake Total 1100 1750 3810 480 Output Total 650 750 Balance 450 1000 3810 480 Meds/Results Medications: Active Medications Generic Name Dose Route Start Last Admin Trade Name Freq PRN Reason Stop Dose Admin Acetaminophen 650 mg 05/26/25 18:00 05/28/25 11:17 Acetaminophen 325 Mg Tablet PO Not Given Q6HR BRE Hydrocodone Bitart/Acetaminophen 1 tab 05/26/25 17:10 05/26/25 17:27 Hydrocodone/Acetaminophen (*Crx) 5-325 Mg Tablet PO 1 tab Q4H PRN Administration Pain Rated 4-6 Hydrocodone Bitart/Acetaminophen 1 tab 05/26/25 17:10 Hydrocodone/Acetaminophen (*Crx) 7.5-325 Mg Tablet PO Q4H PRN Pain Rated 7-10 Al Hydrox/Mg Hydrox/Simethicone 30 ml 05/27/25 20:31 05/27/25 20:57 Mag Hydrox/Al Hydrox/Simeth 30 Ml Udc PO 30 ml Q4H PRN Administration GERD Artificial Tears 1 drop 05/24/25 01:53 Artificial Tears Ophth Soln 15 Ml Bottle EACH EYE QID PRN Dry Eye(s) Enoxaparin Sodium 40 mg 05/27/25 09:00 05/28/25 09:08 Enoxaparin 40 Mg/0.4 Ml Syringe SUB-Q 40 mg DAILY BRE Administration Morphine Sulfate 2 mg 05/26/25 17:10 05/26/25 21:21 Morphine Sulfate (*Crx) 4 Mg/Ml Inj IV PUSH 2 mg Q2H PRN Administration Breakthrough Pain Rated 4-6 or NPO Morphine Sulfate 4 mg 05/26/25 17:10 Morphine Sulfate (*Crx) 4 Mg/Ml Inj IV PUSH Q2H PRN Breakthrough Pain Rated 7-10 or NPO Naloxone HCl 0.1 mg 05/26/25 17:10 Naloxone Hcl 0.4 Mg/Ml Vial IV PUSH Q2M PRN Opiate Reversal Home Med ( 1,000 mg 05/28/25 09:00 05/28/25 11:14 Abiraterone 250 Mg PO 06/27/25 08:59 1,000 mg Tablet) DAILY BRE Administration Home Med 1 each 05/28/25 09:00 05/28/25 11:14 Prednisone 5mg PO 06/27/25 08:59 1 each DAILY BRE Administration Ondansetron HCl 4 mg 05/23/25 23:46 05/28/25 05:08 Ondansetron Inj 4 Mg/2 Ml Vial IV PUSH 4 mg Q4H PRN Administration Nausea And Vomiting Radiology Results: ITS Impressions Abdomen/Pelvis CT 05/23/25 15:01 IMPRESSION: 1. Evidence of mechanical small bowel obstruction with small amount of free fluid in the peritoneal cavity. 2. Significant irregular thickening of the wall of the cecum near the ileocecal junction is quite concerning for malignancy in the cecum causing the small bowel obstruction. 3. Possible 1 cm metastatic lesion to the right lobe of the liver. 4. 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 Chest CT 05/24/25 10:14 IMPRESSION: 1. No gross evidence of metastatic disease within the chest. Liver lesions noted possibly representing metastatic liver disease. 2. Enlarged main pulmonary artery which could be associated with pulmonary arterial hypertension. 3. Other findings as above. Small Bowel X-Ray 05/24/25 19:29 IMPRESSION: 1. Evidence of high-grade mechanical small bowel obstruction at the level of distal small bowel with no contrast seen within the colon at 5 hours. Findings are consistent with CT findings noted on 05/23/2025. 2. Delayed small bowel series with KUB tomorrow morning is recommended. Abdomen X-Ray 05/25/25 08:14 IMPRESSION: Findings consistent with high-grade partial small bowel obstruction versus severe ileus. Abdomen Ultrasound 05/25/25 12:06 IMPRESSION: 1. Cholelithiasis. 2. Subtle 1.5 cm hypoechoic lesion in the right hepatic lobe which based on prior CT imaging is concerning for metastatic disease. Labs Labs: Laboratory Results - last 24 hr 05/27/25 05/28/25 17:56 05:29 WBC 9.4 RBC 3.91 L Hgb 12.1 L Hct 35.2 L MCV 90.0 MCH 30.9 MCHC 34.4 RDW 14.9 H Plt Count 190 MPV 8.4 Immature Gran % (Auto) 0.4 Neut % (Auto) 84.5 H Lymph % (Auto) 7.8 L [place] % (Auto) 5.0 Eos % (Auto) 2.1 Baso % (Auto) 0.2 Lymph # (Auto) 0.73 L [place] # (Auto) 0.5 Eos # (Auto) 0.2 Baso # (Auto) 0.0 Abs Immat Gran (auto) 0.04 H Absolute Neuts (auto) 8.0 H Absolute Nucleated RBC 0.000 Nucleated RBC % 0.0 Sodium 136 L Potassium 3.9 3.4 Chloride 107 Carbon Dioxide 26 Anion Gap 3 L BUN 18 Creatinine 0.88 Estim Creat Clear Calc 63 Estimated GFR > 60 Glucose 123 H Calcium 8.6 Magnesium 2.0 Total Bilirubin 1.2 AST 35 ALT 16 Alkaline Phosphatase 75 Total Protein 5.7 L Albumin 3.2 L
[2025-05-29 00:07] VITALS: PULSE 74
[2025-05-29 04:05] VITALS: PULSE 72
[2025-05-29 05:32] VITALS: BP 146/83; PULSE 80; RESP 20; TEMP 36.5; O2SAT 98
[2025-05-29 05:54] LABS: Hematocrit 31.6 % (42.0-52.0); Hemoglobin 10.4 g/dL (14.0-18.0); Immature Granulocyte Percent A 0.5 % (0-0.5); Lymphocytes Absolute Auto 0.50 K/mm3 (0.9-3.2); Mean Corpuscular HGB Conc 32.9 g/dl (32-36); Mean Corpuscular Hemoglobin 30.1 pg (26-34); Mean Corpuscular Volume 91.6 fl (80-100); Nucleated Red Blood Cells Absolute Auto 0.000 K/mm3 (0.0-0.012); Nucleated Red Blood Cells Perc 0.0 % (0.0-0.2); Platelet Count Result 183 k/mm3 (150-375); Red Blood Count 3.45 M/mm3 (4.6-6.20); White Blood Count 6.4 K/mm3 (4.5-10.0)
[2025-05-29 06:12] LABS: Alanine Aminotransferase 13 U/L (6-50); Albumin Level 2.8 g/dL (3.5-5.1); Alkaline Phosphatase 65 U/L (38-126); Anion Gap 4 mmol/L (4-12); Aspartate Amino Transferase 26 U/L (17-59); Bilirubin,Total 0.9 mg/dL (0.2-1.3); Blood Urea Nitrogen 20 mg/dL (9-20); Calcium 8.1 mg/dL (8.4-10.2); Carbon Dioxide 26 mmol/L (22-30); Chloride 105 mmol/L (98-107); Estimated CRCL calculation 59 ml/min; Estimated Glomerular Filt Rate > 60; Glucose 110 mg/dL (65-110); Magnesium 2.1 mg/dL (1.6-2.3); Potassium 3.3 mmol/L (3.4-5.0); Sodium 135 mmol/L (137-145); Total Protein 5.2 g/dL (6.3-8.2)
[2025-05-29 08:00] VITALS: PULSE 80
--- NOTE | 2025-05-29 08:25 | P.PNIM_ITS ---
Assessment and Plan Assessment and Plan (1) SBO (small bowel obstruction): Code(s): K56.609 - Unspecified intestinal obstruction, unspecified as to partial versus complete obstruction Status: Acute Assessment and Plan: SBO secondary to cecal mass - admit CT A/P with evidence of mechanical SBO with small amount of free fluid, irregular thickening of the wall of the cecum near the ileocecal junction is quite concerning for malignancy in the cecum causing the small bowel obstruction. Possible 1 cm metastatic lesion to the right lobe of the liver. 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 - SBFT 05/24 with evidence of high-grade mechanical small bowel obstruction - KUB 05/25 with persistent small bowel obstruction - patient has never had a colonoscopy. Reports history of negative Cologuard. - s/p laparoscopic right hemicolectomy with ileocolic anastomosis and liver mass biopsy 05/26/[address] Gracia. Follow-up pathology. - oncology consulted - patient plans to follow-up with his own outpatient oncologist (2) Liver lesion: Code(s): K76.9 - Liver disease, unspecified Status: Acute Assessment and Plan: - CT with liver lesions possibly representing metastatic disease - RUQ US with subtle 1.5 cm hypoechoic lesion in the right hepatic lobe - LFTs WNL - follow-up pathology from liver biopsy (3) Abnormal urinalysis: Code(s): R82.90 - Unspecified abnormal findings in urine Status: Acute Assessment and Plan: - UA with positive nitrates, 1+ LE, 6-10 WBC - patient denies urinary symptoms - hold off on antibiotics (4) Chronic kidney disease, stage 3a: Code(s): N18.31 - Chronic kidney disease, stage 3a Status: Acute Assessment and Plan: - Cr 06.15, near baseline - avoid nephrotoxins (5) Malignant neoplasm of prostate: Code(s): C61 - Malignant neoplasm of prostate Status: Acute Assessment and Plan: - s/p radiation - resume abiraterone and prednisone (6) Hypokalemia: Code(s): E87.6 - Hypokalemia Status: Acute Assessment and Plan: - resolved with IV/PO replacement Plan Code status: full code DVT prophylaxis: SCDs, Lovenox Dispo: home in 1-2 days Medical Record Review I have reviewed the following patient records and this information was taken into consideration when formulating the assessment and plan.: previous labs Subjective Date/time seen: 05/29/25 08:25 Interval history: Patient seen and examined at bedside. Passing flatus, still no BM. Minimal pain. Discussed plan of care. Review of Systems Review of Systems: All systems reviewed & are unremarkable except as noted in HPI and below Exam Narrative: General: NAD Eyes: EOMI ENT: neck supple Cardiovascular: Regular rate and rhythm Respiratory: Clear to auscultation, respirations even and unlabored on RA Gastrointestinal: Soft, mild distention, Surgical incision clean dry and intact Genitourinary: no suprapubic tenderness Musculoskeletal: No edema Skin: warm, dry Neuro: Alert. Psych: Mood appropriate Objective Data Vital Signs Vital Signs: Vital Signs - 24 hr 05/28/25 12:00 05/28/25 13:25 05/28/25 16:00 Temperature 97.0 F L Pulse Rate 76 75 87 Respiratory Rate 16 Blood Pressure 148/78 H Pulse Oximetry 98 Oxygen Delivery 05/28/25 20:06 05/28/25 20:12 05/28/25 20:23 Temperature 98.8 F Pulse Rate 80 89 Respiratory Rate 18 Blood Pressure 166/89 H Pulse Oximetry 98 98 Oxygen Delivery Room Air 05/29/25 00:07 05/29/25 04:05 05/29/25 05:32 Temperature 97.7 F Pulse Rate 74 72 80 Respiratory Rate 20 Blood Pressure 146/83 H Pulse Oximetry 98 Oxygen Delivery Intake/Output Intake/Output: Intake & Output 05/26/25 05/27/25 05/28/25 05/29/25 23:59 23:59 23:59 23:59 Intake Total 1750 3810 1720 400 Output Total 750 Balance 1000 3810 1720 400 Meds/Results Medications: Active Medications Generic Name Dose Route Start Last Admin Trade Name Freq PRN Reason Stop Dose Admin Acetaminophen 650 mg 05/26/25 18:00 05/29/25 05:48 Acetaminophen 325 Mg Tablet PO Not Given Q6HR BRE Hydrocodone Bitart/Acetaminophen 1 tab 05/26/25 17:10 05/26/25 17:27 Hydrocodone/Acetaminophen (*Crx) 5-325 Mg Tablet PO 1 tab Q4H PRN Administration Pain Rated 4-6 Hydrocodone Bitart/Acetaminophen 1 tab 05/26/25 17:10 Hydrocodone/Acetaminophen (*Crx) 7.5-325 Mg Tablet PO Q4H PRN Pain Rated 7-10 Al Hydrox/Mg Hydrox/Simethicone 30 ml 05/27/25 20:31 05/27/25 20:57 Mag Hydrox/Al Hydrox/Simeth 30 Ml Udc PO 30 ml Q4H PRN Administration GERD Artificial Tears 1 drop 05/24/25 01:53 Artificial Tears Ophth Soln 15 Ml Bottle EACH EYE QID PRN Dry Eye(s) Enoxaparin Sodium 40 mg 05/27/25 09:00 05/28/25 09:08 Enoxaparin 40 Mg/0.4 Ml Syringe SUB-Q 40 mg DAILY BRE Administration Morphine Sulfate 2 mg 05/26/25 17:10 05/26/25 21:21 Morphine Sulfate (*Crx) 4 Mg/Ml Inj IV PUSH 2 mg Q2H PRN Administration Breakthrough Pain Rated 4-6 or NPO Morphine Sulfate 4 mg 05/26/25 17:10 Morphine Sulfate (*Crx) 4 Mg/Ml Inj IV PUSH Q2H PRN Breakthrough Pain Rated 7-10 or NPO Naloxone HCl 0.1 mg 05/26/25 17:10 Naloxone Hcl 0.4 Mg/Ml Vial IV PUSH Q2M PRN Opiate Reversal Home Med ( 1,000 mg 05/29/25 06:30 05/29/25 06:39 Abiraterone 1,000 Mg PO 06/28/25 06:29 1,000 mg ) 0630 BRE Administration Home Med 1 each 05/29/25 06:30 05/29/25 06:39 Prednisone 5mg PO 06/28/25 06:29 1 each DAILY@0630 BRE Administration Ondansetron HCl 4 mg 05/23/25 23:46 05/28/25 05:08 Ondansetron Inj 4 Mg/2 Ml Vial IV PUSH 4 mg Q4H PRN Administration Nausea And Vomiting Radiology Results: ITS Impressions Abdomen/Pelvis CT 05/23/25 15:01 IMPRESSION: 1. Evidence of mechanical small bowel obstruction with small amount of free fluid in the peritoneal cavity. 2. Significant irregular thickening of the wall of the cecum near the ileocecal junction is quite concerning for malignancy in the cecum causing the small bowel obstruction. 3. Possible 1 cm metastatic lesion to the right lobe of the liver. 4. 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 Chest CT 05/24/25 10:14 IMPRESSION: 1. No gross evidence of metastatic disease within the chest. Liver lesions noted possibly representing metastatic liver disease. 2. Enlarged main pulmonary artery which could be associated with pulmonary arterial hypertension. 3. Other findings as above. Small Bowel X-Ray 05/24/25 19:29 IMPRESSION: 1. Evidence of high-grade mechanical small bowel obstruction at the level of distal small bowel with no contrast seen within the colon at 5 hours. Findings are consistent with CT findings noted on 05/23/2025. 2. Delayed small bowel series with KUB tomorrow morning is recommended. Abdomen X-Ray 05/25/25 08:14 IMPRESSION: Findings consistent with high-grade partial small bowel obstruction versus severe ileus. Abdomen Ultrasound 05/25/25 12:06 IMPRESSION: 1. Cholelithiasis. 2. Subtle 1.5 cm hypoechoic lesion in the right hepatic lobe which based on prio r CT imaging is concerning for metastatic disease. Labs Labs: Laboratory Results - last 24 hr 05/29/25 05:07 WBC 6.4 RBC 3.45 L Hgb 10.4 L Hct 31.6 L MCV 91.6 MCH 30.1 MCHC 32.9 RDW 14.6 H Plt Count 183 MPV 9.1 Immature Gran % (Auto) 0.5 Neut % (Auto) 81.6 H Lymph % (Auto) 7.8 L [place] % (Auto) 6.1 Eos % (Auto) 3.8 Baso % (Auto) 0.2 Lymph # (Auto) 0.50 L [place] # (Auto) 0.4 Eos # (Auto) 0.2 Baso # (Auto) 0.0 Abs Immat Gran (auto) 0.03 Absolute Neuts (auto) 5.2 Absolute Nucleated RBC 0.000 Nucleated RBC % 0.0 Sodium 135 L Potassium 3.3 L Chloride 105 Carbon Dioxide 26 Anion Gap 4 BUN 20 Creatinine 0.93 Estim Creat Clear Calc 59 Estimated GFR > 60 Glucose 110 Calcium 8.1 L Magnesium 2.1 Total Bilirubin 0.9 AST 26 ALT 13 Alkaline Phosphatase 65 Total Protein 5.2 L Albumin 2.8 L Quality VTE Prophylaxis VTE prophylaxis: mechanical ordered
[2025-05-29 08:49] VITALS: O2SAT 96
[2025-05-29] MEDS: ENOXAPARIN 40 MG/0.4 ML SYRINGE SUB-Q (09:28)
[2025-05-29] MEDS: POTASSIUM CHLORIDE 20 MEQ ER TABLET 40 MEQ PO (10:13)
--- NOTE | 2025-05-29 11:54 | P.PNGS_ITS ---
Progress Note: A&P Assessment and Plan (1) Colonic mass: Code(s): K63.89 - Other specified diseases of intestine Status: Acute Assessment and Plan: * Patient doing well today - tolerating low fiber diet, ambulating well, voiding appropriately, minimal pain. Multiple loose bowel movements overnight and this morning. * Patient is surgically stable for discharge with follow up in 2weeks. * Final pathology pending, but anticipating stage IV colon cancer given operative findings (2) SBO (small bowel obstruction): Code(s): K56.609 - Unspecified intestinal obstruction, unspecified as to partial versus complete obstruction Status: Acute Assessment and Plan: * Resolved with surgery (3) Liver lesion: Code(s): K76.9 - Liver disease, unspecified Status: Acute (4) Hypokalemia: Code(s): E87.6 - Hypokalemia Status: Acute Assessment and Plan: * Replace per hospitalist Plan Discussed patient's case and plan of care with Dr. Gracia. Subjective Subjective Date/Time Seen: 05/29/25 11:54 Post Op day: 3 ( hand assisted laparoscopic right hemicolectomy with ileocolic anastomosis) Patient reports: no new complaints, feels better, tolerating a regular diet, bowel movement and afebrile Interval history: Patient doing well today. Sitting up in chair having conversation with at bedside. Loose BM this morning. Tolerating diet. Ambulating well. Exam Const: General: comfortable and no acute distress GI: Inspection: normal to inspection and incision (clean and dry with glue intact) GI Palp: No abdominal tenderness and Yes Soft to palpation Auscultation: Hypoactive bowel sounds present Rectal Exam: deferred Objective Data Vital Signs Vital Signs: Vital Signs - 24 hr 05/28/25 12:00 05/28/25 13:25 05/28/25 16:00 Temperature 97.0 F L Pulse Rate 76 75 87 Respiratory Rate 16 Blood Pressure 148/78 H Pulse Oximetry 98 Oxygen Delivery 05/28/25 20:06 05/28/25 20:12 05/28/25 20:23 Temperature 98.8 F Pulse Rate 80 89 Respiratory Rate 18 Blood Pressure 166/89 H Pulse Oximetry 98 98 Oxygen Delivery Room Air 05/29/25 00:07 05/29/25 04:05 05/29/25 05:32 Temperature 97.7 F Pulse Rate 74 72 80 Respiratory Rate 20 Blood Pressure 146/83 H Pulse Oximetry 98 Oxygen Delivery 05/29/25 08:00 05/29/25 08:15 05/29/25 08:49 Temperature Pulse Rate 80 Respiratory Rate Blood Pressure Pulse Oximetry 96 Oxygen Delivery Room Air Room Air Intake/Output Intake/Output: Intake & Output 05/26/25 05/27/25 05/28/25 05/29/25 23:59 23:59 23:59 23:59 Intake Total 1750 3810 1720 880 Output Total 750 Balance 1000 3810 1720 880 Meds/Results Medications: Active Medications Generic Name Dose Route Start Last Admin Trade Name Freq PRN Reason Stop Dose Admin Acetaminophen 650 mg 05/26/25 18:00 05/29/25 05:48 Acetaminophen 325 Mg Tablet PO Not Given Q6HR BRE Hydrocodone Bitart/Acetaminophen 1 tab 05/26/25 17:10 05/26/25 17:27 Hydrocodone/Acetaminophen (*Crx) 5-325 Mg Tablet PO 1 tab Q4H PRN Administration Pain Rated 4-6 Hydrocodone Bitart/Acetaminophen 1 tab 05/26/25 17:10 Hydrocodone/Acetaminophen (*Crx) 7.5-325 Mg Tablet PO Q4H PRN Pain Rated 7-10 Al Hydrox/Mg Hydrox/Simethicone 30 ml 05/27/25 20:31 05/27/25 20:57 Mag Hydrox/Al Hydrox/Simeth 30 Ml Udc PO 30 ml Q4H PRN Administration GERD Artificial Tears 1 drop 05/24/25 01:53 Artificial Tears Ophth Soln 15 Ml Bottle EACH EYE QID PRN Dry Eye(s) Enoxaparin Sodium 40 mg 05/27/25 09:00 05/29/25 09:28 Enoxaparin 40 Mg/0.4 Ml Syringe SUB-Q 40 mg DAILY BRE Administration Lisinopril 40 mg 05/29/25 09:00 05/29/25 09:27 Lisinopril 20 Mg Tablet PO 40 mg DAILY BRE Administration Morphine Sulfate 2 mg 05/26/25 17:10 05/26/25 21:21 Morphine Sulfate (*Crx) 4 Mg/Ml Inj IV PUSH 2 mg Q2H PRN Administration Breakthrough Pain Rated 4-6 or NPO Morphine Sulfate 4 mg 05/26/25 17:10 Morphine Sulfate (*Crx) 4 Mg/Ml Inj IV PUSH Q2H PRN Breakthrough Pain Rated 7-10 or NPO Naloxone HCl 0.1 mg 05/26/25 17:10 Naloxone Hcl 0.4 Mg/Ml Vial IV PUSH Q2M PRN Opiate Reversal Home Med ( 1,000 mg 05/29/25 06:30 05/29/25 06:39 Abiraterone 1,000 Mg PO 06/28/25 06:29 1,000 mg ) 0630 BRE Administration Home Med 1 each 05/29/25 06:30 05/29/25 06:39 Prednisone 5mg PO 06/28/25 06:29 1 each DAILY@0630 BRE Administration Ondansetron HCl 4 mg 05/23/25 23:46 05/28/25 05:08 Ondansetron Inj 4 Mg/2 Ml Vial IV PUSH 4 mg Q4H PRN Administration Nausea And Vomiting Radiology Results: ITS Impressions Abdomen/Pelvis CT 05/23/25 15:01 IMPRESSION: 1. Evidence of mechanical small bowel obstruction with small amount of free fluid in the peritoneal cavity. 2. Significant irregular thickening of the wall of the cecum near the ileocecal junction is quite concerning for malignancy in the cecum causing the small bowel obstruction. 3. Possible 1 cm metastatic lesion to the right lobe of the liver. 4. 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 Chest CT 05/24/25 10:14 IMPRESSION: 1. No gross evidence of metastatic disease within the chest. Liver lesions noted possibly representing metastatic liver disease. 2. Enlarged main pulmonary artery which could be associated with pulmonary arterial hypertension. 3. Other findings as above. Small Bowel X-Ray 05/24/25 19:29 IMPRESSION: 1. Evidence of high-grade mechanical small bowel obstruction at the level of distal small bowel with no contrast seen within the colon at 5 hours. Findings are consistent with CT findings noted on 05/23/2025. 2. Delayed small bowel series with KUB tomorrow morning is recommended. Abdomen X-Ray 05/25/25 08:14 IMPRESSION: Findings consistent with high-grade partial small bowel obstruction versus severe ileus. Abdomen Ultrasound 05/25/25 12:06 IMPRESSION: 1. Cholelithiasis. 2. Subtle 1.5 cm hypoechoic lesion in the right hepatic lobe which based on prior CT imaging is concerning for metastatic disease. Labs Labs: Laboratory Results - last 24 hr 05/29/25 05:07 WBC 6.4 RBC 3.45 L Hgb 10.4 L Hct 31.6 L MCV 91.6 MCH 30.1 MCHC 32.9 RDW 14.6 H Plt Count 183 MPV 9.1 Immature Gran % (Auto) 0.5 Neut % (Auto) 81.6 H Lymph % (Auto) 7.8 L [place] % (Auto) 6.1 Eos % (Auto) 3.8 Baso % (Auto) 0.2 Lymph # (Auto) 0.50 L [place] # (Auto) 0.4 Eos # (Auto) 0.2 Baso # (Auto) 0.0 Abs Immat Gran (auto) 0.03 Absolute Neuts (auto) 5.2 Absolute Nucleated RBC 0.000 Nucleated RBC % 0.0 Sodium 135 L Potassium 3.3 L Chloride 105 Carbon Dioxide 26 Anion Gap 4 BUN 20 Creatinine 0.93 Estim Creat Clear Calc 59 Estimated GFR > 60 Glucose 110 Calcium 8.1 L Magnesium 2.1 Total Bilirubin 0.9 AST 26 ALT 13 Alkaline Phosphatase 65 Total Protein 5.2 L Albumin 2.8 L
[2025-05-29 12:00] VITALS: PULSE 82
--- NOTE | 2025-05-29 13:14 | P.DS_ITS ---
DS: Admitting Diagnosis Discharge Date 05/29/25 Admitting Diagnosis - SBO - cecal mass - liver lesion DS: Discharge Diagnosis Discharge Diagnosis (1) SBO (small bowel obstruction): Code(s): K56.609 - Unspecified intestinal obstruction, unspecified as to partial versus complete obstruction Status: Acute (2) Liver lesion: Code(s): K76.9 - Liver disease, unspecified Status: Acute (3) Abnormal urinalysis: Code(s): R82.90 - Unspecified abnormal findings in urine Status: Acute (4) Chronic kidney disease, stage 3a: Code(s): N18.31 - Chronic kidney disease, stage 3a Status: Acute (5) Malignant neoplasm of prostate: Code(s): C61 - Malignant neoplasm of prostate Status: Acute (6) Hypokalemia: Code(s): E87.6 - Hypokalemia Status: Acute DS: Summary Hospital Course Reason for hospitalization: - SBO - cecal mass - liver lesion Hospital Course: Mr. Allen is an 89-year-old male with a history of prostate cancer (status post radiation), chronic kidney disease stage 3a, hypertension, and peripheral neuropathy who presented with several days of cramping abdominal pain, nausea, and diarrhea. Initial evaluation revealed leukocytosis, mild acute kidney injury, and lactic acidosis. CT imaging demonstrated a high-grade mechanical small bowel obstruction at the ileocecal valve with a cecal mass and a suspicious liver lesion. He was managed with bowel rest, nasogastric decompression, and IV fluids. General surgery, gastroenterology, and oncology were consulted. After small bowel follow-through confirmed persistent high-grade obstruction, he underwent a hand-assisted laparoscopic right hemicolectomy with ileocolic anastomosis and wedge biopsy of the liver lesion. Postoperatively, he was monitored on the surgical floor, gradually advanced to a regular diet, and ambulated without difficulty. His abdominal pain resolved, and he had return of bowel function with multiple loose stools. He developed mild hypokalemia, which was corrected with IV and oral potassium supplementation. On the day of discharge, he was tolerating a low-fiber diet, had multiple bowel movements, ambulating independently, and had stable vital signs. He was resumed on his home potassium supplement with instructions to have repeat labs in 5?7 days to monitor electrolytes. Final pathology is pending, but operative findings are most consistent with stage IV colon cancer. He will follow up with surgery in two weeks and with oncology as an outpatient. Status at Discharge Functional status at discharge: independent ambulation Overall status at discharge: patient is progressing back to baseline Time Spent with Patient Time attestation: Total time spent providing and/or coordinating discharge services: Exam Narrative: General: NAD Eyes: EOMI ENT: neck supple Cardiovascular: Regular rate and rhythm Respiratory: Clear to auscultation, respirations even and unlabored on RA Gastrointestinal: Soft, mild distention, Surgical incision clean dry and intact Genitourinary: no suprapubic tenderness Musculoskeletal: No edema Skin: warm, dry Neuro: Alert. Psych: Mood appropriate DS: Data Data Completed and Pending Completed studies during hospitalization: ITS Impressions Abdomen/Pelvis CT 05/23/25 15:01 IMPRESSION: 1. Evidence of mechanical small bowel obstruction with small amount of free fluid in the peritoneal cavity. 2. Significant irregular thickening of the wall of the cecum near the ileocecal junction is quite concerning for malignancy in the cecum causing the small bowel obstruction. 3. Possible 1 cm metastatic lesion to the right lobe of the liver. 4. 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 Abdomen X-Ray 05/23/25 17:04 Impression: 1. No acute abnormality. Chest CT 05/24/25 10:14 IMPRESSION: 1. No gross evidence of metastatic disease within the chest. Liver lesions noted possibly representing metastatic liver disease. 2. Enlarged main pulmonary artery which could be associated with pulmonary arterial hypertension. 3. Other findings as above. Small Bowel X-Ray 05/24/25 19:29 IMPRESSION: 1. Evidence of high-grade mechanical small bowel obstruction at the level of distal small bowel with no contrast seen within the colon at 5 hours. Findings are consistent with CT findings noted on 05/23/2025. 2. Delayed small bowel series with KUB tomorrow morning is recommended. Abdomen X-Ray 05/25/25 08:14 IMPRESSION: Findings consistent with high-grade partial small bowel obstruction versus severe ileus. Abdomen Ultrasound 05/25/25 12:06 IMPRESSION: 1. Cholelithiasis. 2. Subtle 1.5 cm hypoechoic lesion in the right hepatic lobe which based on prior CT imaging is concerning for metastatic disease. Pending studies at discharge: Pending at discharge 05/26/25 15:04 Surgical [PTH] Routine Surgical [PTH] Routine Labs on day of discharge: Labs from last 24 hours 05/29/25 05:07 WBC 6.4 RBC 3.45 L Hgb 10.4 L Hct 31.6 L MCV 91.6 MCH 30.1 MCHC 32.9 RDW 14.6 H Plt Count 183 MPV 9.1 Immature Gran % (Auto) 0.5 Neut % (Auto) 81.6 H Lymph % (Auto) 7.8 L [place] % (Auto) 6.1 Eos % (Auto) 3.8 Baso % (Auto) 0.2 Lymph # (Auto) 0.50 L [place] # (Auto) 0.4 Eos # (Auto) 0.2 Baso # (Auto) 0.0 Abs Immat Gran (auto) 0.03 Absolute Neuts (auto) 5.2 Absolute Nucleated RBC 0.000 Nucleated RBC % 0.0 Sodium 135 L Potassium 3.3 L Chloride 105 Carbon Dioxide 26 Anion Gap 4 BUN 20 Creatinine 0.93 Estim Creat Clear Calc 59 Estimated GFR > 60 Glucose 110 Calcium 8.1 L Magnesium 2.1 Total Bilirubin 0.9 AST 26 ALT 13 Alkaline Phosphatase 65 Total Protein 5.2 L Albumin 2.8 L Discharge Plan Discharge Attending physician on discharge: Maury Schmidt Consulting providers: Lindsay Coulter; Juventino Gracia; Jerry Pascual Discharging Clinician: Lindsay Coulter Anticipated Discharge Date/Time: 05/29/25 12:29 Patient Disposition: Home Activity: may shower Diet: regular Discharge Instructions: No soaking in a bath, pool, ball, or any other body of water. OK to shower. No lifting more than 15-20 pounds for the next two weeks. Up and walking 10-30 minutes 3 times a day. Resume previous home medications. No driving for 3 days after surgery or while taking narcotic pain medication. You may resume your regular diet. If you experience nausea, try dry toast, crackers, and 7-UP.? If nausea or vomiting persists, contact your surgeon?s office. Utilize Tylenol over the counter for pain. Make a follow-up appointment with your oncologist as soon as possible. Call to have records transferred from [place] prior to the appointment. You should hear from the general surgery office regarding follow up appointment. If you do not hear anything within 3 days from hospital discharge, call the office at . Call the office or go to the Emergency Department for: -Bleeding or increased drainage from wounds -Severe pain -Vomiting -Fever greater than 101 degrees Patient Instructions: Laparoscopic Bowel Resection (DC) Patient Language: Uzbek Stand Alone Forms: General Discharge Information Follow-up/Referrals: Alma Isabel DO [Primary Care Provider, Family Practice] - Call for Appointment Referral Note: follow-up in 5-7 days. Have repeat labs to recheck your potassium prior to this appointment. Juventino Gracia DO [Physician, General Surgery] - Keep Reg. Scheduled Appt. Discharge Medications: Continued vitamin B complex Tablet 1 tablet PO DAILY alpha lipoic acid 600 mg capsule 600 mg PO BID abiraterone 250 mg tablet 1,000 mg PO DAILY Rx Instructions: must be taken on empty stomach, at least 1 hr before or 2 hrs after a meal/food hydrochlorothiazide 25 mg tablet 12.5 mg PO DAILY potassium chloride 10 mEq tablet extended release 10 meq PO BID prednisone 5 mg tablet 5 mg PO DAILY lisinopril 20 mg tablet 40 mg PO DAILY Qty: 180 2RF Other Ambulatory Orders: Basic Metabolic Panel (Routine) Timeframe: 5 Days Location: Determined by Patient Ordered By: Lindsay Coulter Date of admission: 05/23/25 18:19 Primary Care Provider: Alma Isabel Admitting Provider: Sonja Camilo Attending physician on admission: Sonja Camilo Condition: Stable
[2025-05-29 14:02] LABS: Potassium 2.8 mmol/L (3.4-5.0)
== END 2025-05-29 13:48 | disposition home or self-care (01) | DRG 330 ==
LOC: ANHED 15:31 → ANH3MED 17:48
PROVIDERS: Anesthesiology; Internal Medicine; Physician Assistant; Surgery; Admitting Provider Internal Medicine; Emergency Provider Emergency Medicine; PCP Family Medicine; Visit Provider Physician Assistant
PROC: 0DTF4ZZ Resection of Right Large Intestine, Percutaneous Endoscopic Approach (ICD-10-PCS; CPT 44204; principal; 2025-05-26 16:00)
DX: C78.5 Secondary malignant neoplasm of large intestine and rectum (principal); C78.7 Secondary malignant neoplasm of liver and intrahepatic bile duct; E87.20 Acidosis, unspecified; N17.9 Acute kidney failure, unspecified; R82.90 Unspecified abnormal findings in urine; I12.9 Hypertensive chronic kidney disease with stage 1 through stage 4 chronic kidney disease, or unspecified chronic kidney disease; N18.31 Chronic kidney disease, stage 3a; E87.6 Hypokalemia; G60.9 Hereditary and idiopathic neuropathy, unspecified; N40.0 Benign prostatic hyperplasia without lower urinary tract symptoms; E86.0 Dehydration; D72.829 Elevated white blood cell count, unspecified; I70.0 Atherosclerosis of aorta; M85.80 Other specified disorders of bone density and structure, unspecified site; E66.9 Obesity, unspecified; Z68.30 Body mass index [BMI] 30.0-30.9, adult; Z85.46 Personal history of malignant neoplasm of prostate
CPT/HCPCS: 36415; 71260; 74018; 74177; 74250; 76705; 80048; 80053; 81001; 82378; 83605; 83690; 83735; 84132; 85025; 85027; 85610; 85730; 86850; 86900; 86901; 88304; 88307; 88309; 88342; 93005; 96361; 96374; 96375; 99285; J0690; A9270; J0696; J1100; J1650; J1836; J2003; J2270; J2405; J2470; J2704; J3010; J3480; J7030; J7040; J7120; J7512; Q9967